=== PATIENT | female | born 1995 | race Caucasian/White ===

== ENCOUNTER 2017-08-12 21:48 | Emergency (ER) | payer OTHER ==
[2017-08-12 22:03] VITALS: BP 130/75
--- NOTE | 2017-08-12 22:15 | ED Physician Documentation ---
History of Present Illness - Stated complaint Stated Complaint: BODY ACHE - Chief complaint Chief Complaint: General - History obtained from History obtained from: Patient - History of Present Illness Timing: Other (Sick for about 4 days with chills alternating with sweats, skin hypersensitivity and runny nose and body aches. No sick contacts. 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 : None HEENT: None Psych: None Musculoskeletal: None Derm: None - Past Surgical History Past Surgical History: Yes Ortho: Other HEENT: Tonsil/Adenoidectomy - Present Medications Home Medications: Ambulatory Orders Medication Instructions Recorded Confirmed Levonorgestrel [Daphney] 07/16/15 07/16/15 - Allergies Allergies/Adverse Reactions: Allergies Allergy/AdvReac Type Severity Reaction Status Date / Time acetaminophen [From Vicodin] Allergy Mild Emesis Verified 08/12/17 22:03 hydrocodone bitartrate * Allergy Mild Emesis Verified 08/12/17 22:03 [From Vicodin] - Social History Does the pt smoke?: No Smoking Status: Current every day smoker Does the pt drink ETOH?: No Does the pt have substance abuse?: No - Immunizations Immunizations are current?: Yes - POLST Patient has POLST: No PD ED PE NORMAL - Vitals Vital signs reviewed: Yes - General General: Alert and oriented X 3, No acute distress - HEENT HEENT: EOMI, Ears normal, Moist mucous membranes, Pharynx benign - Neck Neck: Supple, no meningeal sign, No bony TTP, No adenopathy - Cardiac Cardiac: RRR, No murmur - Respiratory Respiratory: No respiratory distress, Clear bilaterally - Abdomen Abdomen: Soft, Non tender - Derm Derm: No rash - Neuro Neuro: Alert and oriented X 3, Normal speech Results - Vitals Vitals: Vital Signs - 24 hr 08/12/17 21:58 Temperature 37.0 C Heart Rate 100 Respiratory 20 Rate Blood Pressure 130/75 O2 Saturation 99 Oxygen O2 Source Room air PD MEDICAL DECISION MAKING - ED course ED course: In the midst of this influenza outbreak, her symptoms are very consistent with influenza, there is little utility to testing or treating as she had been sick for 3 days; conservative care was advised. Departure - Departure Disposition: 01 Home, Self Care Clinical Impression: Influenza Condition: Good Record reviewed to determine appropriate education?: Yes Instructions: ED Flu Comments: Ibuprofen as needed for aches or pains. He should be better in the next day or 2. Return if worse or if not better in that timeframe. Forms: Activity restrictions
== END 2017-08-12 22:18 | disposition home or self-care (01) ==
LOC: ED 21:48
DX: J11.1 Influenza due to unidentified influenza virus with other respiratory manifestations (principal); F17.200 Nicotine dependence, unspecified, uncomplicated
CPT/HCPCS: 99282

== ENCOUNTER 2018-03-17 19:05 | Emergency (ER) | payer SELFPAY ==
[2018-03-17 19:46] LABS: BASOPHILS # (AUTO) 0.1 10^3/uL (0.0-0.1); BASOPHILS % (AUTO) 0.5 %; EOSINOPHILS # (AUTO) 0.2 10^3/uL (0.0-0.7); EOSINOPHILS % (AUTO) 1.7 %; HGB - HEMOGLOBIN 13.3 g/dL (12.0-16.0); LYMPHOCYTES # (AUTO) 3.8 10^3/uL (1.5-3.5); LYMPHOCYTES % (AUTO) 30.8 %; MEAN CORPUSCULAR HEMOGLOBIN 30.8 pg (27.0-31.0); MEAN CORPUSCULAR HGB CONC 34.2 g/dL (32.0-36.0); MEAN CORPUSCULAR VOLUME 89.9 fL (81.0-99.0); MEAN PLATELET VOLUME 7.5 fL (7.9-10.8); MONOCYTES # (AUTO) 0.8 10^3/uL (0.0-1.0); MONOCYTES % (AUTO) 6.8 %; NEUTROPHILS # (AUTO) 7.4 10^3/uL (1.5-6.6); NEUTROPHILS % (AUTO) 60.2 %; PLT - PLATELET COUNT 277 10^3/uL (130-450); RED BLOOD COUNT 4.32 10^6/uL (4.20-5.40); RED CELL DISTRIBUTION WIDTH 12.3 % (12.0-15.0); WHITE BLOOD COUNT 12.4 x10^3/uL (4.8-10.8)
[2018-03-17 19:56] LABS: BILIRUBIN,URINE NEGATIVE (NEGATIVE); GLUCOSE, URINE (UA) NEGATIVE (NEGATIVE); KETONES,URINE (UA) 15 mg/dL (NEGATIVE); LEUKOCYTE ESTERASE, URINE NEGATIVE (NEGATIVE); NITRITE,URINE NEGATIVE (NEGATIVE); OCCULT BLOOD,URINE NEGATIVE (NEGATIVE); PROTEIN,URINE NEGATIVE (NEGATIVE); UROBILINOGEN,URINE 0.2 (NORMAL) E.U./dL (NORMAL)
[2018-03-17 19:58] LABS: CLARITY,URINE CLEAR (CLEAR)
[2018-03-17 19:59] LABS: HCG UR QUAL POSITIVE
[2018-03-17 20:01] LABS: ALBUMIN 3.9 g/dL (3.2-5.5); ALBUMIN/GLOBULIN RATIO 1.3 (1.0-2.2); BILIRUBIN,TOTAL 0.6 mg/dL (0.2-1.0); CREATININE 0.8 mg/dL (0.4-1.0); TOTAL PROTEIN 6.8 g/dL (6.7-8.2)
[2018-03-17] MEDS ORDERED: SODIUM CHLORIDE 0.9% 1,000 ML IV ONE (20:02)
--- NOTE | 2018-03-17 20:32 | ED Physician Documentation ---
PD HPI ABD PAIN - Stated complaint Stated Complaint: ABD PX - Chief complaint Chief Complaint: Abd Pain - History obtained from History obtained from: Patient - History of Present Illness Timing - onset: Yesterday Timing - details: Gradual onset, Still present Quality: Cramping, Aching Location: Epigastric Associated symptoms: Nausea, Diarrhea. No: Fever Similar symptoms before: Has not had sx before Recently seen: Not recently seen - Additional information Additional information: Patient is a 22 year old female presenting to the emergency department for abdominal pain. patient states that the symptoms started yesterday with generalized epigastric pain, pelvic pain and diarrhea. Patient denies any vomiting or sick contacts. patient reports her lmp was about a month ago. 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 : None HEENT: None Psych: None Musculoskeletal: None Derm: None - Past Surgical History Past Surgical History: Yes Ortho: Other HEENT: Tonsil/Adenoidectomy - Present Medications Home Medications: Ambulatory Orders Medication Instructions Recorded Confirmed Levonorgestrel [Daphney] 07/16/15 07/16/15 - Allergies Allergies/Adverse Reactions: Allergies Allergy/AdvReac Type Severity Reaction Status Date / Time acetaminophen [From Vicodin] Allergy Mild Emesis Verified 03/17/18 19:35 hydrocodone bitartrate * Allergy Mild Emesis Verified 03/17/18 19:35 [From Vicodin] - Social History Does the pt smoke?: No Smoking Status: Never smoker Does the pt drink ETOH?: No Does the pt have substance abuse?: No - Immunizations Immunizations are current?: Yes - POLST Patient has POLST: No PD ED PE NORMAL - Vitals Vital signs reviewed: Yes - General General: Alert and oriented X 3, No acute distress - HEENT HEENT: Atraumatic - Cardiac Cardiac: RRR - Respiratory Respiratory: No respiratory distress - Abdomen Abdomen: Soft - Female Female : Deferred - Derm Derm: Normal color, Warm and dry - Extremities Extremities: No deformity - Neuro Neuro: Alert and oriented X 3, No motor deficit, Normal speech Eye Opening: Spontaneous Motor: Obeys Commands Verbal: Oriented GCS Score: 15 Results - Vitals Vitals: Vital Signs - 24 hr 03/17/18 03/17/18 03/17/18 19:16 19:34 21:58 Temperature 36.7 C Heart Rate 90 90 64 Respiratory 16 16 16 Rate Blood Pressure 128/70 127/71 134/86 H O2 Saturation 100 100 100 03/17/18 22:29 Temperature 36.4 C L Heart Rate 66 Respiratory 16 Rate Blood Pressure 134/86 H O2 Saturation 100 Oxygen O2 Source Room air - Labs Labs: Laboratory Tests 03/17/18 03/17/18 03/17/18 19:37 19:37 19:37 WBC 12.4 H RBC 4.32 Hgb 13.3 Hct 38.8 MCV 89.9 MCH 30.8 MCHC 34.2 RDW 12.3 Plt Count 277 MPV 7.5 L Neut # (Auto) 7.4 H Lymph # (Auto) 3.8 H [place] # (Auto) 0.8 Eos # (Auto) 0.2 Baso # (Auto) 0.1 Absolute Nucleated RBC 0.00 Nucleated RBC % 0.0 Sodium 136 Potassium 3.3 L Chloride 105 Carbon Dioxide 24 Anion Gap 7.0 BUN 9 Creatinine 0.8 Estimated GFR (MDRD) 91 Glucose 88 Calcium 9.0 Total Bilirubin 0.6 AST 21 ALT 20 Alkaline Phosphatase 56 Total Protein 6.8 Albumin 3.9 Globulin 2.9 Albumin/Globulin Ratio 1.3 Lipase 42 HCG, Quant 86431.00 Urine Color Urine Clarity Urine pH Ur Specific [place] Urine Protein Urine Glucose (UA) Urine Ketones Urine Occult Blood Urine Nitrite Urine Bilirubin Urine Urobilinogen Ur Leukocyte Esterase Ur Microscopic Review Urine Culture Comments Urine HCG, Qual 03/17/18 19:40 WBC RBC Hgb Hct MCV MCH MCHC RDW Plt Count MPV Neut # (Auto) Lymph # (Auto) [place] # (Auto) Eos # (Auto) Baso # (Auto) Absolute Nucleated RBC Nucleated RBC % Sodium Potassium Chloride Carbon Dioxide Anion Gap BUN Creatinine Estimated GFR (MDRD) Glucose Calcium Total Bilirubin AST ALT Alkaline Phosphatase Total Protein Albumin Globulin Albumin/Globulin Ratio Lipase HCG, Quant Urine Color YELLOW Urine Clarity CLEAR Urine pH 6.0 Ur Specific [place] 1.020 Urine Protein NEGATIVE Urine Glucose (UA) NEGATIVE Urine Ketones 15 H Urine Occult Blood NEGATIVE Urine Nitrite NEGATIVE Urine Bilirubin NEGATIVE Urine Urobilinogen 0.2 (NORMAL) Ur Leukocyte Esterase NEGATIVE Ur Microscopic Review NOT INDICATED Urine Culture Comments NOT INDICATED Urine HCG, Qual POSITIVE - Rads (name of study) pelvic ultrasound Radiology: Final report received (IUP approximately 5 weeks 3 days) PD MEDICAL DECISION MAKING - ED course Complexity details: reviewed old records, reviewed results, re-evaluated patient , considered differential, d/w patient, d/w family ED course: Patient was seen and examined at bedside. patient was well appearing and in no distress. urine was collected and patient was found to be and mild ketones. Patient did not know she was . labs were drawn, and imaging was ordered. patient was treated with a fluid bolus. Patient went for imaging. when patient returned the results were reviewed. Patient had an early IUP. Patient and family were made aware of the findings. Patient required no further work up and was stable for discharge with outpatient follow up. - Sepsis Event Vital Signs: Vital Signs - 24 hr 03/17/18 03/17/18 03/17/18 19:16 19:34 21:58 Temperature 36.7 C Heart Rate 90 90 64 Respiratory 16 16 16 Rate Blood Pressure 128/70 127/71 134/86 H O2 Saturation 100 100 100 03/17/18 22:29 Temperature 36.4 C L Heart Rate 66 Respiratory 16 Rate Blood Pressure 134/86 H O2 Saturation 100 Oxygen O2 Source Room air Departure - Departure Disposition: 01 Home, Self Care Clinical Impression: Condition: Good Instructions: ED Preg Established Normal Sxs Follow-Up: primary,care provider [Other] - Within 3 Days Comments: Your symptoms today are being caused by a . It is early in the , approximately 5 weeks. You should follow up with your doctor/ob clinic for further evaluation and care. You should stay well hydrated and you can take tylenol as needed for pain. Discharge Date/Time: 03/17/18 22:46
[2018-03-17 22:07] VITALS: BP 134/86
--- NOTE | 2018-03-17 22:22 | Ultrasound Report ---
Reason: abd pain, preg Procedure Date: 03/17/2018 Accession Number: [id number] / [id number] Procedure: US - OB First Trimester CPT Code: FULL RESULT: EXAM: FIRST TRIMESTER OBSTETRIC ULTRASOUND (less than 11 weeks). EXAM DATE: 03/17/2018. CLINICAL HISTORY: Diffuse pelvic pain. LMP: 02/07/2018. COMPARISONS: None. TECHNIQUE: Transabdominal and transvaginal ultrasound examination with static image documentation. CLINICAL DATES: EGA 5 weeks 3 days with TANIA 11/14/2018 based on LMP. ASSESSMENT: Gestational Sac: Single intra-gestational sac containing a yolk sac but no embryo. Mean sac diameter measures 10.3 mm corresponding to an estimated gestational age of 5 weeks 0 days. Embryo: none. Cardiac activity: none. Yolk sac: 4.3 mm. Amniotic fluid: Not applicable. Early placenta: Not applicable. Other: None. MATERNAL STRUCTURES: Uterus: Anteverted. Unremarkable. Cervix: Closed. Right Ovary/Adnexa: Unremarkable. The ovary measures 3 x 2 x 1.9 cm, volume 5.9 cc. 2.7 cm complex right ovarian cyst with debris and mild peripheral flow. No mural nodules or thickened septations. Left Ovary/Adnexa: Unremarkable. The ovary measures 2.7 x 2 x 1.9 cm, volume 5.3 cc. Free Fluid: None. Other: None. IMPRESSION: 1. Single intra-gestational sac containing a yolk sac but no embryo. Estimated gestational age based on mean sac diameter is 5 weeks 0 days which is concordant with dates based upon LMP. Recommend continued monitoring with follow-up imaging as necessary as dictated by clinical presentation and laboratory studies. 2. Probable involuting right ovarian 2.7 cm cyst versus corpus luteum. Otherwise, both ovaries and adnexa are normal. 3. No abnormality explaining the patient's symptoms. RADIA
== END 2018-03-17 22:46 | disposition home or self-care (01) ==
LOC: ED 19:05
DX: O26.891 Other specified pregnancy related conditions, first trimester (principal); R10.13 Epigastric pain; R11.0 Nausea; R19.7 Diarrhea, unspecified; Z3A.01 Less than 8 weeks gestation of pregnancy
CPT/HCPCS: 36415; 76801; 76817; 80053; 81001; 81003; 81025; 83690; 84702; 85025; 87086; 96360; 99283

== ENCOUNTER 2018-04-21 16:37 | Outpatient (CLI) | payer SELFPAY ==
[2018-04-21 17:34] LABS: BILIRUBIN,URINE NEGATIVE (NEGATIVE); GLUCOSE, URINE (UA) NEGATIVE (NEGATIVE); KETONES,URINE (UA) NEGATIVE (NEGATIVE); LEUKOCYTE ESTERASE, URINE NEGATIVE (NEGATIVE); NITRITE,URINE NEGATIVE (NEGATIVE); OCCULT BLOOD,URINE NEGATIVE (NEGATIVE); PROTEIN,URINE NEGATIVE (NEGATIVE); UROBILINOGEN,URINE 0.2 (NORMAL) E.U./dL (NORMAL)
[2018-04-21 17:43] LABS: BACTERIA,URINE None Seen /HPF (None Seen); CLARITY,URINE CLEAR (CLEAR); RBC,URINE 0-5 /HPF (0-5); SQUAMOUS EPITHELIAL CELL,UR RARE Squamous (<= Few)
[2018-04-21 18:16] LABS: BASOPHILS # (AUTO) 0.1 10^3/uL (0.0-0.1); BASOPHILS % (AUTO) 0.7 %; EOSINOPHILS # (AUTO) 0.3 10^3/uL (0.0-0.7); EOSINOPHILS % (AUTO) 1.8 %; HGB - HEMOGLOBIN 12.8 g/dL (12.0-16.0); LYMPHOCYTES # (AUTO) 4.8 10^3/uL (1.5-3.5); LYMPHOCYTES % (AUTO) 29.9 %; MEAN CORPUSCULAR HEMOGLOBIN 31.6 pg (27.0-31.0); MEAN CORPUSCULAR HGB CONC 34.9 g/dL (32.0-36.0); MEAN CORPUSCULAR VOLUME 90.5 fL (81.0-99.0); MEAN PLATELET VOLUME 7.6 fL (7.9-10.8); MONOCYTES % (AUTO) 6.3 %; NEUTROPHILS # (AUTO) 9.8 10^3/uL (1.5-6.6); NEUTROPHILS % (AUTO) 61.3 %; PLT - PLATELET COUNT 280 10^3/uL (130-450); RED BLOOD COUNT 4.05 10^6/uL (4.20-5.40); RED CELL DISTRIBUTION WIDTH 12.6 % (12.0-15.0)
[2018-04-21 18:32] LABS: HB2 TOTAL 13.1 g/dL; HEMOGLOBIN A1C 0.43 g/dL; HEMOGLOBIN A1C % 5.2 % (4.6-6.2)
[2018-04-22 13:27] LABS: HEPATITIS B SURFACE ANTIGEN NON-REACTIVE (NON-REACTIVE)
[2018-04-22 13:28] LABS: HEPATITIS C ANTIBODY NON-REACTIVE (NON-REACTIVE)
[2018-04-22 14:22] LABS: HIV AG/AB 4TH GEN NON-REACTIVE (NON-REACTIVE)
== END 2018-04-21 16:38 | disposition home or self-care (01) ==
LOC: LAB 16:37
PROVIDERS: ATTEND Registered Nurse
DX: O99.211 Obesity complicating pregnancy, first trimester (principal); Z36.9 Encounter for antenatal screening, unspecified
CPT/HCPCS: 36415; 81001; 81599; 82950; 83036; 85025; 86762; 86803; 86850; 86900; 86901; 87340; 87389

== ENCOUNTER → 2018-04-22 | Outpatient (CLI) | payer SELFPAY ==
[2018-04-22 14:52] LABS: MUDS CUTOFF CONCENTRATIONS CUTOFF CONC BELOW:
[2018-04-22 15:50] LABS: AMPHETAMINE SCREEN,URINE NEGATIVE (NEGATIVE); BENZODIAZEPINES SCREEN, URINE NEGATIVE (NEGATIVE); COCAINE SCREEN URINE NEGATIVE (NEGATIVE); METHADONE SCREEN, URINE NEGATIVE (NEGATIVE); METHAMPHETAMINES SCREEN, URINE NEGATIVE (NEGATIVE); OPIATE SCREEN, URINE NEGATIVE (NEGATIVE); OXYCODONE SCREEN, URINE NEGATIVE (NEGATIVE); PROPOXYPHENE SCREEN, URINE NEGATIVE (NEGATIVE); TRICYCLIC ANTIDEPRESSANT,URINE NEGATIVE (NEGATIVE)
== END ==
LOC: LAB.R 08:00
PROVIDERS: ATTEND Registered Nurse
DX: Z36.9 Encounter for antenatal screening, unspecified (principal)
CPT/HCPCS: 80306

== ENCOUNTER 2018-06-27 12:05 | Outpatient (CLI) | payer MEDICAID ==
--- NOTE | 2018-06-30 08:15 | Ultrasound Report ---
Reason: ENCTR FOR SUPRVSN OF NORMAL , 2ND TRIMEST Procedure Date: 06/27/2018 Accession Number: [id number] / [id number] Procedure: US - OB Detailed Eval CPT Code: FULL RESULT: EXAM: COMPLETE OBSTETRICAL ULTRASOUND EXAM DATE: 06/27/2018 02:34 PM. CLINICAL HISTORY: anatomic survey. COMPARISON: 03/17/2018. TECHNIQUE: Real-time sonographic evaluation of the fetus performed by the picking tech. Multiple order entry representative static images were saved for review. DATING: Established EGA 20 weeks 0 days with TANIA 11/14/2018 based on LMP. EGA 19 weeks 6 days with TANIA 11/15/2018 based on the current ultrasound. GENERAL EVALUATION [place] . Cardiac activity: 152 bpm. movement: Visualized. Presentation: Breech. Placenta: Fundal position. No evidence for previa. Umbilical cord: 3 vessel cord. Central placental cord origin. Amniotic fluid: Normal, RASHMI 11.2 cm. MVP 3.3 cm. BIOMETRY Bi-Parietal Diameter (BPD): 4.4 cm, 19 weeks 3 days Head Circumference (HC): 17.5 cm, 20 weeks 0 days Abdominal Circumference (AC): 14.9 cm, 20 weeks 1 day Femur Length (FL): 3.1 cm, 19 weeks 5 days Estimated Weight: 323 g, 43rd percentile. ANATOMY The intracranial structures, profile, lips, spine, stomach, abdominal wall and cord insertion, diaphragm, kidneys, bladder, and extremities were visualized and demonstrate no abnormality. The nasal bone/profile and the cardiac structures are not well visualized. MATERNAL STRUCTURES Uterus: Unremarkable. Cervix: Long and closed. Transabdominal length 4.1 cm. Right ovary/adnexa: Unremarkable. Left ovary/adnexa: Unremarkable. Free fluid: None. IMPRESSION: 1. Masterson live intrauterine with gestational age 20 weeks 0 days based on LMP. 2. Estimated weight is within expected limits for assigned dating. 3. No anatomic abnormalities are detected at this time. However, the nasal bone/profile and cardiac anatomy are not well visualized. Short-term follow-up additional views are recommended to reassess those structures. RADIA
== END 2018-06-27 12:06 | disposition home or self-care (01) ==
LOC: DI 12:05
PROVIDERS: ATTEND Registered Nurse
DX: Z34.82 Encounter for supervision of other normal pregnancy, second trimester (principal)
CPT/HCPCS: 76811

== ENCOUNTER 2018-08-03 20:07 | Outpatient (CLI) | payer MEDICAID ==
[2018-08-03 21:01] LABS: HGB - HEMOGLOBIN 12.1 g/dL (12.0-16.0); MEAN CORPUSCULAR HEMOGLOBIN 30.9 pg (27.0-31.0); MEAN CORPUSCULAR HGB CONC 33.8 g/dL (32.0-36.0); MEAN CORPUSCULAR VOLUME 91.4 fL (81.0-99.0); MEAN PLATELET VOLUME 7.9 fL (7.9-10.8); RED BLOOD COUNT 3.91 10^6/uL (4.20-5.40); RED CELL DISTRIBUTION WIDTH 12.2 % (12.0-15.0); WHITE BLOOD COUNT 16.6 x10^3/uL (4.8-10.8)
[2018-08-03 21:41] VITALS: BP 109/55
--- NOTE | 2018-08-03 22:36 | Ultrasound Report ---
Reason: abdominal trauma Procedure Date: 08/03/2018 Accession Number: [id number] / [id number] Procedure: US - OB Limited CPT Code: FULL RESULT: EXAM: LIMITED OBSTETRICAL ULTRASOUND EXAM DATE: 08/03/2018 09:45 PM. CLINICAL HISTORY: Abdominal trauma. COMPARISON: None. TECHNIQUE: Real-time sonographic evaluation of the fetus performed by the licensing and registration director. Multiple signs sales representative static images were saved for review. DATING: Established EGA 25 weeks 1 day with TANIA 11/15/2018. GENERAL EVALUATION [place] . Cardiac activity: 174 bpm. movement: Visualized. Presentation: Breech. Placenta: Posterior fundal position. No evidence of previa or abruption Amniotic fluid: Subjectively normal. IMPRESSION: 1. [place] live intrauterine with gestational age 25 weeks 1 day based on established TANIA. 2. Placenta is posterior fundal without evidence of abruption. RADIA
[2018-08-04 00:44] LABS: HGB - HEMOGLOBIN 11.6 g/dL (12.0-16.0); MEAN CORPUSCULAR HGB CONC 34.6 g/dL (32.0-36.0); MEAN CORPUSCULAR VOLUME 89.7 fL (81.0-99.0); MEAN PLATELET VOLUME 7.8 fL (7.9-10.8); RED BLOOD COUNT 3.73 10^6/uL (4.20-5.40); RED CELL DISTRIBUTION WIDTH 12.3 % (12.0-15.0); WHITE BLOOD COUNT 17.2 x10^3/uL (4.8-10.8)
== END 2018-08-04 00:55 | disposition home or self-care (01) ==
LOC: WFO 20:07 → FBP 20:09 → WFO 08-04 00:55
PROVIDERS: ATTEND Registered Nurse
DX: O9A.212 Injury, poisoning and certain other consequences of external causes complicating pregnancy, second trimester (principal); Z3A.25 25 weeks gestation of pregnancy; W19.XXXA Unspecified fall, initial encounter; W55.89XA Other contact with other mammals, initial encounter; Y92.009 Unspecified place in unspecified non-institutional (private) residence as the place of occurrence of the external cause
CPT/HCPCS: 36415; 76815; 85027; 99213

== ENCOUNTER 2018-08-07 13:22 | Outpatient (CLI) | payer MEDICAID ==
--- NOTE | 2018-08-07 16:25 | Ultrasound Report ---
Reason: SUPERVISION OF NORMAL Procedure Date: 08/07/2018 Accession Number: [id number] / [id number] Procedure: US - OB F/U or Repeat CPT Code: FULL RESULT: EXAM: FOLLOW-UP OBSTETRICAL ULTRASOUND EXAM DATE: 08/07/2018 03:02 PM. CLINICAL HISTORY: SUPERVISION OF NORMAL . COMPARISON: 06/27/2018 and 08/03/2018. TECHNIQUE: Real-time sonographic evaluation of the fetus performed by the building services technician. Multiple insurance service representative static images were saved for review. DATING: Established EGA 25 weeks 6 days with TANIA 11/14/2018 based on LMP. EGA 25 weeks 5 days with TANIA 11/16/2015 based on ultrasound 06/27/2018. EGA 26 weeks 0 days with TANIA 11/13/2018 based on the current ultrasound. GENERAL EVALUATION [place] . Cardiac activity: 157 bpm. movement: Present Presentation: Cephalic. Placenta: Posterior position. Amniotic fluid: Normal. RASHMI 9 cm. MVP 2.6 cm. BIOMETRY Bi-Parietal Diameter (BPD): 6.3 cm, 25 weeks 4 days Head Circumference (HC): 24 cm, 26 weeks 1 day Abdominal Circumference (AC): 21 cm, 25 weeks 4 days Femur Length (FL): 4.8 cm, 26 weeks 3 days Estimated Weight: 870 g, 54th percentile . ANATOMY 4 chamber heart and outflow tracts and nasal bones/profile well seen today and no anomalies are identified MATERNAL STRUCTURES Cervix 4.1 cm. IMPRESSION: 1. [place] live intrauterine with gestational age 25 weeks 6 days based on LMP. 2. Estimated weight is within expected limits for assigned dating. 3. Normal interval growth compared to 06/27/2018. 4. cardiac anatomy, nasal bones, and profile demonstrate no anomalies. RADIA
== END 2018-08-07 13:23 | disposition home or self-care (01) ==
LOC: DI 13:22
PROVIDERS: ATTEND Registered Nurse
DX: Z34.92 Encounter for supervision of normal pregnancy, unspecified, second trimester (principal)
CPT/HCPCS: 76816

== ENCOUNTER 2018-08-15 12:30 | Outpatient (CLI) | payer MEDICAID ==
[2018-08-15 13:46] LABS: HGB - HEMOGLOBIN 12.9 g/dL (12.0-16.0); MEAN CORPUSCULAR HEMOGLOBIN 31.7 pg (27.0-31.0); MEAN CORPUSCULAR HGB CONC 35.1 g/dL (32.0-36.0); MEAN CORPUSCULAR VOLUME 90.3 fL (81.0-99.0); MEAN PLATELET VOLUME 7.6 fL (7.9-10.8); RED BLOOD COUNT 4.05 10^6/uL (4.20-5.40); RED CELL DISTRIBUTION WIDTH 12.5 % (12.0-15.0)
== END 2018-08-15 12:31 | disposition home or self-care (01) ==
LOC: LAB 12:30
PROVIDERS: ATTEND Registered Nurse
DX: Z34.90 Encounter for supervision of normal pregnancy, unspecified, unspecified trimester (principal)
CPT/HCPCS: 36415; 82950; 85027; 86850

== ENCOUNTER 2018-09-18 08:00 | Outpatient (CLI) | payer MEDICAID | END 2018-09-18 23:59 | disposition home or self-care (01) | LOC: LAB.R 08:00 | PROVIDERS: ATTEND Registered Nurse | DX: N93.9 Abnormal uterine and vaginal bleeding, unspecified (principal) | CPT/HCPCS: 82731; 87491; 87591 ==

== ENCOUNTER 2018-10-16 16:33 | Outpatient (CLI) | payer MEDICAID | END 2018-10-16 23:59 | disposition home or self-care (01) | LOC: LAB.R 16:33 | PROVIDERS: ATTEND Nurse Practitioner Obstetrics & Gynecology | DX: Z36.9 Encounter for antenatal screening, unspecified (principal) | CPT/HCPCS: 87797 ==

== ENCOUNTER 2018-10-22 14:15 | Outpatient (CLI) | payer MEDICAID ==
[2018-10-22 14:15] LABS: BASOPHILS # (AUTO) 0.1 10^3/uL (0.0-0.1); BASOPHILS % (AUTO) 0.5 %; EOSINOPHILS # (AUTO) 0.1 10^3/uL (0.0-0.7); EOSINOPHILS % (AUTO) 0.9 %; HGB - HEMOGLOBIN 13.2 g/dL (12.0-16.0); LYMPHOCYTES # (AUTO) 3.3 10^3/uL (1.5-3.5); LYMPHOCYTES % (AUTO) 28.7 %; MEAN CORPUSCULAR HEMOGLOBIN 30.5 pg (27.0-31.0); MEAN CORPUSCULAR HGB CONC 34.1 g/dL (32.0-36.0); MEAN CORPUSCULAR VOLUME 89.5 fL (81.0-99.0); MEAN PLATELET VOLUME 8.8 fL (7.9-10.8); MONOCYTES % (AUTO) 8.4 %; NEUTROPHILS % (AUTO) 61.5 %; PLT - PLATELET COUNT 248 10^3/uL (130-450); RED BLOOD COUNT 4.33 10^6/uL (4.20-5.40); RED CELL DISTRIBUTION WIDTH 13.2 % (12.0-15.0); WHITE BLOOD COUNT 11.4 x10^3/uL (4.8-10.8)
[2018-10-22 14:26] LABS: CREATININE 0.7 mg/dL (0.4-1.0)
[2018-10-22 14:31] LABS: BILIRUBIN,URINE NEGATIVE (NEGATIVE); GLUCOSE, URINE (UA) NEGATIVE (NEGATIVE); KETONES,URINE (UA) NEGATIVE (NEGATIVE); LEUKOCYTE ESTERASE, URINE TRACE (NEGATIVE); NITRITE,URINE NEGATIVE (NEGATIVE); OCCULT BLOOD,URINE NEGATIVE (NEGATIVE); PH,URINE 6.5 PH (5.0-7.5); PROTEIN,URINE 30 mg/dL (NEGATIVE); UROBILINOGEN,URINE 0.2 (NORMAL) E.U./dL (NORMAL)
[2018-10-22 14:42] LABS: BACTERIA,URINE None Seen /HPF (None Seen); CLARITY,URINE CLEAR (CLEAR); MUCUS,URINE Moderate Strands; RBC,URINE None Seen /HPF (0-5); SQUAMOUS EPITHELIAL CELL,UR MOD Squamous (<= Few)
[2018-10-22 14:48] LABS: CREATININE,URINE 314.7 mg/dL; PROTEIN/CREATININE RATIO,URINE 0.1 (<=0.2)
[2018-10-22] MEDS ORDERED: ACETAMINOPHEN 500 MG TABLET PO PRN (15:37)
[2018-10-22] MEDS ORDERED: BETAMETHASONE 30 MG/5 ML VIAL IM ONE (16:00)
[2018-10-22 16:36] VITALS: BP 130/98
--- NOTE | 2018-10-22 18:05 | PREOP HISTORY & PHYSICAL ---
DATE OF SERVICE: 10/22/2018 Physician: Dillan Jj MD IDENTIFICATION: A 22-year-old, G1, P0 female whose EDC is 11/14/2018. This makes her 36.5 weeks ges tation. CHIEF COMPLAINT: Blood pressure elevations in the clinic. HISTORY OF PRESENT ILLNESS: Patient was seen in the clinic today, at which time her blood pressures noted in the 140s/90s. She was noted to have trace proteinuria last visit. For this reason, she has been sent over for blood pressure evaluations. Her clinic blood pressures have been running 114-120 s over 62-86. She has only had a trace proteinuria noted at her last visit. She is noted to be grou p B strep positive at this time. She has had difficulty with some headaches. PAST MEDICAL HISTORY: Denies any hypertensive, diabetic, cardiac, or pulmonary disease. PAST SURGICAL HISTORY: Positive for a right ankle repair, as well as tonsillectomy and adenoidectomy . MEDICATIONS 1. Tums. 2. vitamins. ALLERGIES: VICODIN. HABITS: She smokes. She denies use of alcohol. She did smoke marijuana prior to the onset of this . FAMILY HISTORY: Positive for diabetes, as well as migraines. LABORATORY DATA: Here, white count 11.4, hemoglobin 13.2, hematocrit 38.4. Platelets were 248. Her creatinine was noted to be 0.7. Her AST is 18. Her protein creatinine ratio was 0.1. Blood pressures here were running in the 120s to 140s. Diastolics were in the 90s. IMPRESSION 1. A 22-year-old primigravida at 36.5 weeks. 2. Gestational hypertension. PLAN 1. Will start collection of a 24-hour total protein excretion. 2. Will have patient return for a blood pressure check tomorrow, as well as finishing her 24-hour co llection. 3. Will administer betamethasone 12 mg IM today, with a repeat dose tomorrow. 4. Should she develop increasing swelling or severe headaches, she should report sooner. 5. She is scheduled for induction on Saturday, at which time she will be 37 weeks. TD: 10/22/2018 16:23
== END 2018-10-22 16:00 | disposition home or self-care (01) ==
LOC: WFO 14:15 → FBP 14:17 → WFO 16:00
PROVIDERS: ATTEND Registered Nurse
DX: O13.3 Gestational [pregnancy-induced] hypertension without significant proteinuria, third trimester (principal); Z3A.36 36 weeks gestation of pregnancy
CPT/HCPCS: 36415; 81001; 81003; 82565; 82570; 83615; 84156; 84450; 85025; 87086

== ENCOUNTER 2018-10-22 20:03 | Inpatient (IN) | payer MEDICAID ==
[2018-10-22] MEDS ORDERED: SODIUM CHLORIDE FLUSH 0.9% 10 ML SYRINGE ONE (22:24)
[2018-10-22] MEDS ORDERED: MAGNESIUM SULFATE 2 GRAM 4 GM/100 ML BAG IV ONE (22:51)
[2018-10-22] MEDS ORDERED: LACTATED RINGERS 1,000 ML IV ONE (22:52)
[2018-10-22] MEDS ORDERED: MAGNESIUM SULFATE IN WATER 20 GM/500 ML IV.SOLN IV ONE (23:00)
[2018-10-22] MEDS: LACTATED RINGERS 1,000 ML IV SCH (23:06)
[2018-10-22] MEDS: MAGNESIUM SULFATE 2 GRAM 2 GM/50 ML BAG IV SCH ×2 (23:10→23:30)
[2018-10-22] MEDS ORDERED: SODIUM CHLORIDE FLUSH 0.9% 10 ML SYRINGE IVP PRN (23:11)
[2018-10-22] MEDS ORDERED: DINOPROSTONE 10 MG SUPP VG ONE (23:26)
[2018-10-22] MEDS: MAGNESIUM SULFATE IN WATER 20 GM/500 ML IV.SOLN IV SCH (23:34)
[2018-10-22] MEDS ORDERED: LABETALOL 20 MG/4 ML SYRINGE IVP PRN (23:37)
[2018-10-23] MEDS: ACETAMINOPHEN 325 MG TABLET PO PRN (00:07)
[2018-10-23 00:45] LABS: BASOPHILS % (AUTO) 0.4 %; HGB - HEMOGLOBIN 12.1 g/dL (12.0-16.0); LYMPHOCYTES % (AUTO) 16.2 %; MEAN CORPUSCULAR HEMOGLOBIN 30.5 pg (27.0-31.0); MEAN CORPUSCULAR HGB CONC 34.1 g/dL (32.0-36.0); MEAN CORPUSCULAR VOLUME 89.4 fL (81.0-99.0); MEAN PLATELET VOLUME 9.1 fL (7.9-10.8); MONOCYTES # (AUTO) 0.2 10^3/uL (0.0-1.0); MONOCYTES % (AUTO) 1.5 %; NEUTROPHILS # (AUTO) 9.9 10^3/uL (1.5-6.6); NEUTROPHILS % (AUTO) 81.9 %; PLT - PLATELET COUNT 240 10^3/uL (130-450); RED BLOOD COUNT 3.96 10^6/uL (4.20-5.40); RED CELL DISTRIBUTION WIDTH 13.2 % (12.0-15.0); WHITE BLOOD COUNT 12.1 x10^3/uL (4.8-10.8)
--- NOTE | 2018-10-23 01:54 | PREOP HISTORY & PHYSICAL ---
DATE OF SERVICE: 10/22/2018 Physician: Dilaln Jj MD IDENTIFICATION: A 22-year-old, G1, P0 female who is 36 weeks 5 days. She was seen earlier today wit h concerns about gestational hypertension. The diagnosis was made and following this, she was sent h ome and told to monitor her headache. She developed headache with visual changes and colors. She st ates that her headaches got progressively worse with time. She returned here. Her blood pressure jade ve been running in the 140s-150s/mid 90s, but she is having difficulty with vision changes. For this reason, she is being admitted to labor and delivery for cervical ripening, magnesium sulfate and ind uction of labor. PHYSICAL EXAMINATION VITAL SIGNS: Blood pressure is 140s/90s. HEENT: Pupils are equal and round. Extraocular muscles are intact. Thyroid is not enlarged. Mouth is clear. HEART: Regular rate and rhythm without murmurs. LUNGS: Lung raman are clear without rales or wheezes. BACK: No spinal or CVA tenderness. ABDOMEN: Uterus is gravid, roughly 36 cm in size, is nontender. heart rate was noted to be in the 140s with good accelerations. LABORATORY DATA: Her labs were previously reviewed on the previous note from today. They were all w ithin normal limits. IMPRESSION 1. A 22-year-old, G1, P0, female. 2. Gestational hypertension with severe features. PLAN: We will admit the patient, start magnesium sulfate, start cervical ripening with Cervidil and plan to progress towards labor. We will repeat her labs in the morning to see how she is progressing . I have ordered labetalol for blood pressures greater than 150/100. TD: 10/22/2018 23:59
[2018-10-23 04:13] LABS: MUDS CUTOFF CONCENTRATIONS CUTOFF CONC BELOW:
[2018-10-23 04:25] LABS: COCAINE SCREEN URINE NEGATIVE (NEGATIVE)
[2018-10-23 04:26] LABS: AMPHETAMINE SCREEN,URINE NEGATIVE (NEGATIVE); BENZODIAZEPINES SCREEN, URINE NEGATIVE (NEGATIVE); METHADONE SCREEN, URINE NEGATIVE (NEGATIVE); METHAMPHETAMINES SCREEN, URINE NEGATIVE (NEGATIVE); OPIATE SCREEN, URINE NEGATIVE (NEGATIVE); OXYCODONE SCREEN, URINE NEGATIVE (NEGATIVE); PROPOXYPHENE SCREEN, URINE NEGATIVE (NEGATIVE); TRICYCLIC ANTIDEPRESSANT,URINE NEGATIVE (NEGATIVE)
[2018-10-23 04:50] LABS: CREATININE,URINE 28.5 mg/dL
[2018-10-23 04:53] LABS: TOTAL PROTEIN,URINE TIMED < 6 mg/dL
[2018-10-23 06:08] LABS: CALCIUM 8.2 mg/dL (8.5-10.3); CREATININE 0.7 mg/dL (0.4-1.0); MAGNESIUM 4.6 mg/dL (1.7-2.8); URIC ACID 5.4 mg/dL (2.6-7.2)
--- NOTE | 2018-10-23 08:32 | PROVIDER PROGRESS NOTE ---
Labor Progress Note - Uterine Monitoring Uterine Monitoring Mode: positive: External toco : 2-5 Contraction Intensity: positive: Mild Uterine Resting Tone: positive: Soft - Monitoring Monitor Mode: positive: External ultrasound Heart Rate Baseline: 130 Heart Rate Variability: positive: Minimal (0-5 bpm) Accelerations: positive: Present, 15x15 Decelerations: positive: None Strip Review: positive: Category I - Vaginal Exam Dilation (in cm): 2 Effacement (%): 50 Station: -1 Cervical Position: Midposition - Labor Progress Note Labor Progress Note/Additional Text: Cervical progress cervidel removed. Miso When adiquit start Pit.
[2018-10-23] MEDS: miSOPROStol 100 MCG TABLET BC SCH ×3 (09:12→19:14)
[2018-10-23] MEDS: MAGNESIUM SULFATE IN WATER 20 GM/500 ML IV.SOLN IV SCH ×2 (10:40→19:59)
[2018-10-23 13:03] LABS: BASOPHILS % (AUTO) 0.2 %; HGB - HEMOGLOBIN 12.5 g/dL (12.0-16.0); LYMPHOCYTES # (AUTO) 3.1 10^3/uL (1.5-3.5); LYMPHOCYTES % (AUTO) 15.5 %; MEAN CORPUSCULAR HEMOGLOBIN 30.6 pg (27.0-31.0); MEAN CORPUSCULAR HGB CONC 34.2 g/dL (32.0-36.0); MEAN CORPUSCULAR VOLUME 89.7 fL (81.0-99.0); MONOCYTES # (AUTO) 1.5 10^3/uL (0.0-1.0); MONOCYTES % (AUTO) 7.4 %; NEUTROPHILS # (AUTO) 15.4 10^3/uL (1.5-6.6); NEUTROPHILS % (AUTO) 76.9 %; PLT - PLATELET COUNT 261 10^3/uL (130-450); RED BLOOD COUNT 4.08 10^6/uL (4.20-5.40)
[2018-10-23 13:16] LABS: ALBUMIN/GLOBULIN RATIO 0.9 (1.0-2.2); BILIRUBIN,TOTAL 0.3 mg/dL (0.2-1.0); CALCIUM 7.9 mg/dL (8.5-10.3); CREATININE 0.7 mg/dL (0.4-1.0); TOTAL PROTEIN 6.2 g/dL (6.7-8.2); URIC ACID 5.3 mg/dL (2.6-7.2)
[2018-10-23 13:54] LABS: CREATININE,URINE 73.4 mg/dL; PROTEIN/CREATININE RATIO,URINE 0.2 (<=0.2)
[2018-10-23] MEDS: LACTATED RINGERS 1,000 ML IV SCH ×2 (15:10→23:34)
[2018-10-23] MEDS ORDERED: BETAMETHASONE 30 MG/5 ML VIAL IM ONE (16:00)
[2018-10-23 16:19] LABS: CREATININE,URINE 45.9 mg/dL
[2018-10-23] MEDS ORDERED: ONDANSETRON 4 MG/2 ML VIAL IVP PRN ×2 (16:43→18:52)
[2018-10-23] MEDS ORDERED: PENICILLIN G POTASSIUM 5,000,000 UNIT in SODIUM CHLORIDE 0.9% MINIBAG 100 ML IV ONE (17:18)
--- NOTE | 2018-10-23 17:27 | PROVIDER PROGRESS NOTE ---
Labor Progress Note - Uterine Monitoring Contraction Frequency (min/apart): Q2-4 Contraction Intensity: positive: Moderate to strong Uterine Resting Tone: positive: Soft - Monitoring Heart Rate Baseline: 135 Heart Rate Variability: positive: Moderate (6-25 bmp) Accelerations: positive: Present, 15x15 Decelerations: positive: None Strip Review: positive: Category I - Vaginal Exam Dilation (in cm): 3 Effacement (%): 80 Station: 0 - Labor Progress Note Labor Progress Note/Additional Text: Pt is sleep deprived. Cervix progressing. BP is stable Labs are normal 24 hour TP 252, P/C 0.2 Gestational HTN Epidural Allow to rest.
--- NOTE | 2018-10-23 17:53 | ANESTHESIA ---
Pre-Anesthesia VS, & Labs - Diagnosis active labor - Procedure labor epidural Vital Signs: Temp Pulse Resp BP Pulse Ox 36.9 C 75 18 147/83 H 97 10/23/18 06:10 10/23/18 06:10 10/23/18 06:10 10/23/18 06:10 10/23/18 06:10 Height 5 ft 7 in Weight (kg) 95.708 kg Body Mass Index 29.1 - NPO Other (1750) - Is Patient ?: Yes - Lab Results Current Lab Results: Laboratory Tests 10/23/18 12:55: Sodium 133 L, Potassium 3.7, Chloride 102, Carbon Dioxide 19 L, Anion Gap 12.0, BUN 9, Creatinine 0.7, Estimated GFR (MDRD) 106, Glucose 147 H, Uric Acid 5.3, Calcium 7.9 L, Total Bilirubin 0.3, AST 23, ALT 10, Alkaline Phosphatase 195 H, Total Protein 6.2 L, Albumin 3.0 L, Globulin 3.2, Albumin/Globulin Ratio 0.9 L 10/23/18 12:55: WBC 20.0 H, RBC 4.08 L, Hgb 12.5, Hct 36.6 L, MCV 89.7, MCH 30.6, MCHC 34.2, RDW 13.0, Plt Count 261, MPV 9.0, Neut # (Auto) 15.4 H, Lymph # (Auto) 3.1, [place] # (Auto) 1.5 H, Eos # (Auto) 0.0, Baso # (Auto) 0.0, Absolute Nucleated RBC 0.00, Nucleated RBC % 0.0 10/23/18 04:07: Urine Opiates Screen NEGATIVE, Ur Oxycodone Screen NEGATIVE, Urine Methadone Screen NEGATIVE, Ur Propoxyphene Screen NEGATIVE, Ur Barbiturates Screen NEGATIVE, Ur Tricyclics Screen NEGATIVE, Ur Phencyclidine Scrn NEGATIVE, Ur Amphetamine Screen NEGATIVE, U Methamphetamines Scrn NEGATIVE, U Benzodiazepines Scrn NEGATIVE, Urine Cocaine Screen NEGATIVE, U Cannabinoids Screen NEGATIVE 10/23/18 02:57: Lactate Dehydrogenase 138 10/23/18 02:57: Sodium 131 L, Potassium 4.0, Chloride 102, Carbon Dioxide 17 L, Anion Gap 12.0, BUN 10, Creatinine 0.7, Estimated GFR (MDRD) 106, Glucose 147 H, Uric Acid 5.4, Calcium 8.2 L, Magnesium 4.6 H, AST 29 10/22/18 23:15: WBC 12.1 H, RBC 3.96 L, Hgb 12.1, Hct 35.4 L, MCV 89.4, MCH 30.5, MCHC 34.1, RDW 13.2, Plt Count 240, MPV 9.1, Neut # (Auto) 9.9 H, Lymph # (Auto) 2.0, [place] # (Auto) 0.2, Eos # (Auto) 0.0, Baso # (Auto) 0.0, Absolute Nucleated RBC 0.00, Nucleated RBC % 0.0 Fish Bones: 10/23/18 12:55 10/23/18 12:55 Home Medications and Allergies Active Medications Acetaminophen (Tylenol) 650 mg PO Q4HR PRN PRN Reason: Pain or Fever > 38C (100.4F) Last Admin: 10/23/18 00:07 Dose: 650 mg Lactated Ringer's (Lr) 1,000 mls @ 75 mls/hr IV .[id number] [facility] Last Admin: 10/23/18 15:10 Dose: 50 mls/hr Magnesium Sulfate (Magnesium Sulf 20 G/500 Ml Bag) 20 gm in 500 mls @ 50 mls/hr IV .Q10H [facility] Last Admin: 10/23/18 10:40 Dose: 2 gm/hr, 50 mls/hr Ampicillin Sodium 2 gm/ Sodium (Chloride) 100 mls @ 100 mls/hr IV ONCE ONE Stop: 10/23/18 18:59 Ampicillin Sodium 1 gm/ Sodium (Chloride) 100 mls @ 200 mls/hr IV Q4H [facility] Labetalol HCl (Trandate Syringe) 10 mg IVP PRN PRN PRN Reason: BP greater than 150/100 Misoprostol (Cytotec) 50 mcg BC Q4H [facility] Last Admin: 10/23/18 13:21 Dose: 50 mcg Ondansetron HCl (Zofran Inj) 4 mg IVP Q4HR PRN PRN Reason: Nausea / Vomiting Last Admin: 10/23/18 16:54 Dose: 4 mg Ranitidine HCl (Zantac) 150 mg PO DAILY [facility] Last Admin: 10/23/18 11:01 Dose: 150 mg Sodium Chloride (Normal Saline Flush 0.9%) 10 ml IVP PRN PRN PRN Reason: NEEDED PER PROVIDER ORDERS Last Admin: 10/23/18 10:40 Dose: 10 ml Sodium Chloride (Normal Saline Flush 0.9%) 10 ml IVP 0100,0900,1700 BETHEL Levonorgestrel [Daphney] 07/16/15 Allergies/Adverse Reactions: Allergies Allergy/AdvReac Type Severity Reaction Status Date / Time hydrocodone bitartrate * Allergy Mild Emesis Verified 03/17/18 19:35 [From Vicodin] Anes History & Medical History - Anesthetic History Anesthesia Complications: reports: No previous complications Family history of Anesthesia Complications: Denies Family history of Malignant Hyperthermia: Denies - Medical History Cardiovascular: reports: None Pulmonary: reports: Asthma Gastrointestinal: reports: GERD Urinary: reports: None Musculoskeletal: reports: None Endocrine/Autoimmune: reports: None Blood Disorders: reports: None Skin: reports: None Smoking Status: Current some day smoker - Surgical History Eyes Ears Nose Throat (EENT): Tonsil/Adenoidectomy Orthopedic: Other Exam General: Alert, Oriented x3, Cooperative, No acute distress Dental: Other (chipped tooth) Mouth Openin Fingerbreadth Neck Mobility: Normal Mallampati classification: III Thyromental Distance: greater than 6 cm Respiratory: Lungs clear, Normal breath sounds, No respiratory distress, No accessory muscle use Cardiovascular: Regular rate, Normal S1, Normal S2, No murmurs Plan Anesthesia Type: Epidural Consent for Procedure(s) Verified and Reviewed: Yes Code Status: Attempt Resuscitation ASA classification: 2-Mild systemic disease Is this case an emergency?: No
[2018-10-23] MEDS ORDERED: AMPICILLIN 2 GM in SODIUM CHLORIDE 0.9% MINIBAG 100 ML IV ONE (18:00)
[2018-10-23] MEDS ORDERED: fent/BUPIV 2 MCG/0.125% 250 ML EP ONE (18:28)
[2018-10-23] MEDS ORDERED: NALOXONE 0.4 MG/ML VIAL IVP PRN (18:52)
[2018-10-23] MEDS ORDERED: fent/BUPIV 2 MCG/0.125% 250 ML EP PRN (18:52)
[2018-10-23] MEDS ORDERED: ePHEDrine 50 MG/ML VIAL IVP PRN (18:52)
[2018-10-23] MEDS ORDERED: NALBUPHINE 10 MG/ML AMP IVP PRN (18:52)
[2018-10-23] MEDS ORDERED: LACTATED RINGERS 500 ML IV ONE (18:52)
[2018-10-23] MEDS ORDERED: METOCLOPRAMIDE 10 MG/2 ML VIAL IVP PRN (18:52)
[2018-10-23] MEDS ORDERED: diphenhydrAMINE INJ 50 MG/ML VIAL IVP PRN (18:52)
[2018-10-23 19:04] LABS: BASOPHILS % (AUTO) 0.1 %; HGB - HEMOGLOBIN 12.7 g/dL (12.0-16.0); LYMPHOCYTES % (AUTO) 15.1 %; MEAN CORPUSCULAR HEMOGLOBIN 29.5 pg (27.0-31.0); MEAN CORPUSCULAR HGB CONC 33.1 g/dL (32.0-36.0); MEAN CORPUSCULAR VOLUME 89.3 fL (81.0-99.0); MEAN PLATELET VOLUME 9.2 fL (7.9-10.8); MONOCYTES % (AUTO) 4.4 %; NEUTROPHILS % (AUTO) 80.4 %; PLT - PLATELET COUNT 266 10^3/uL (130-450); RED CELL DISTRIBUTION WIDTH 13.3 % (12.0-15.0); WHITE BLOOD COUNT 20.8 x10^3/uL (4.8-10.8)
[2018-10-23 19:08] LABS: ABNORMAL LYMPHS % (MANUAL) 0 %
[2018-10-23 19:17] LABS: ALBUMIN 3.1 g/dL (3.2-5.5); ALBUMIN/GLOBULIN RATIO 0.9 (1.0-2.2); BILIRUBIN,TOTAL 0.5 mg/dL (0.2-1.0); CALCIUM 7.4 mg/dL (8.5-10.3); CREATININE 0.8 mg/dL (0.4-1.0); TOTAL PROTEIN 6.4 g/dL (6.7-8.2); URIC ACID 5.6 mg/dL (2.6-7.2)
[2018-10-23 19:22] LABS: BAND NEUTROPHILS % (MANUAL) 1 %; DIFFERENTIAL COMMENT MANUAL DIFFERENTIAL; LYMPHOCYTES # (MANUAL) 2.3 10^3/uL (1.5-3.5); LYMPHOCYTES % (MANUAL) 11 %; MONOCYTES # (MANUAL) 0.6 10^3/uL (0.0-1.0); NEUTROPHILS # (MANUAL) 17.9 10^3/uL (1.5-6.6); NEUTROPHILS % (MANUAL) 85 %; PLATELET ESTIMATE, MANUAL NORMAL (130-450,000) (NORMAL); PLATELET MORPHOLOGY NORMAL APPEARANCE (NORMAL); RBC MORPHOLOGY (MULTIPLE) NORMAL APPEARANCE (NORMAL)
[2018-10-23 20:40] LABS: PROTEIN/CREATININE RATIO,URINE 0.2 (<=0.2)
[2018-10-23] MEDS ORDERED: PENICILLIN G POTASSIUM 2,500,000 UNIT in SODIUM CHLORIDE 0.9% 100ML 100 ML IV SCH (21:00)
[2018-10-23] MEDS: AMPICILLIN 1 GM in SODIUM CHLORIDE 0.9% MINIBAG 100 ML IV SCH (23:23)
[2018-10-24] MEDS: AMPICILLIN 1 GM in SODIUM CHLORIDE 0.9% MINIBAG 100 ML IV SCH ×2 (04:09→08:58)
[2018-10-24] MEDS: ACETAMINOPHEN 325 MG TABLET PO PRN ×3 (04:15→20:15)
[2018-10-24] MEDS: miSOPROStol 100 MCG TABLET BC SCH (05:27)
[2018-10-24] MEDS: MAGNESIUM SULFATE IN WATER 20 GM/500 ML IV.SOLN IV SCH ×2 (06:04→16:08)
[2018-10-24 06:15] LABS: BASOPHILS % (AUTO) 0.3 %; HGB - HEMOGLOBIN 11.8 g/dL (12.0-16.0); LYMPHOCYTES # (AUTO) 2.2 10^3/uL (1.5-3.5); LYMPHOCYTES % (AUTO) 13.4 %; MEAN CORPUSCULAR HEMOGLOBIN 30.8 pg (27.0-31.0); MEAN CORPUSCULAR HGB CONC 34.2 g/dL (32.0-36.0); MEAN CORPUSCULAR VOLUME 89.9 fL (81.0-99.0); MEAN PLATELET VOLUME 8.7 fL (7.9-10.8); MONOCYTES # (AUTO) 0.8 10^3/uL (0.0-1.0); MONOCYTES % (AUTO) 5.1 %; NEUTROPHILS # (AUTO) 13.4 10^3/uL (1.5-6.6); NEUTROPHILS % (AUTO) 81.2 %; PLT - PLATELET COUNT 226 10^3/uL (130-450); RED BLOOD COUNT 3.85 10^6/uL (4.20-5.40); RED CELL DISTRIBUTION WIDTH 13.4 % (12.0-15.0); WHITE BLOOD COUNT 16.5 x10^3/uL (4.8-10.8)
[2018-10-24 06:27] LABS: ALT ALANINE AMINOTRANSFERASE < 10 IU/L (10-60); CREATININE 0.7 mg/dL (0.4-1.0); GFR - MDRD 106 (>89)
[2018-10-24 06:28] LABS: URIC ACID 5.5 mg/dL (2.6-7.2)
--- NOTE | 2018-10-24 07:35 | PROVIDER PROGRESS NOTE ---
Labor Progress Note - Uterine Monitoring : 6-7 Contraction Intensity: positive: Mild to moderate Uterine Resting Tone: positive: Soft - Monitoring Monitor Mode: positive: External ultrasound Heart Rate Baseline: 130 Heart Rate Variability: positive: Minimal (0-5 bpm) Accelerations: positive: Present, 15x15 Decelerations: positive: None Strip Review: positive: Category I - Vaginal Exam Dilation (in cm): 4+ Effacement (%): 80 Station: 0 Cervical Position: Midposition - Labor Progress Note Labor Progress Note/Additional Text: Came by last night to see pt at 2100 Pt was asleep. Allowed to rest over the night. Pt improved. B/P normalized. good pain control with Eidural. Pt is 37.0 weeks. discussed Pit. will start
--- NOTE | 2018-10-24 08:51 | PROVIDER PROGRESS NOTE ---
Subjective - Subjective Subjective: S: feeling pretty good. Had a mild COLLAZO this morning resolved with tylenol. Currently no COLLAZO. No visual changes, no upper abd pain. Feeling some rectal pressure, no UC. No LOF at home. Chart reviewed: 22yo G1 at 37w0d O+, rub NI will need vax PP GBS + TANIA 11/14/18 by LMP c/w 5w c/w 20w US Posterior/fundal placenta, normal anatomy PMH: tobacco use about 1/2 PPD, obese PSH: tonsills and ankle Allergies: hydrocodone SH: smoker. No T/E/D. Supportive family. O: AVSS Alert, smiling, NAD Lungs CTA bilat Abd soft, nt/nd SVE /-2. AROM clear after verbal consent 3+ DTR bilat. 1+ LE edema bilat PIH Labs 06:00 normal. 24h urine in 200s, P:C 0.2 A/P: 22yo G1 at 37w0d by LMP c/w 20w US with IOL for severe preeclampsia. Preeclampsia: criteria not met by proteinuria but pt does have elevated BP, brisk reflex, COLLAZO, and visual changes on admit. Currently no sx, normal labs, and normal BP after epidural. Continue magnesium 2g/h, mag checks q2h, repeat labs PRN change in condition. GBS +: on ampicillin Obese: SCD and JOYCE Smoker: no craving since inpatient. Increased mucous production but lungs are clear. Offered nicotine patch and she declines. Encouraged continued cessation. IOL: going well. s/p ripening now start pitocin. AROM clear at 08:30. Category 1 NST. Vertex by DOV, AGA by anaya. : will need MMR for rub NI. Rh +. Objective - Vital Signs/Intake & Output Intake & Output: Intake & Output 10/21/18 10/22/18 10/23/18 10/24/18 23:59 23:59 23:59 23:59 Intake Total 100 3065.833 500 Output Total 175 3895 1295 Balance -75 -829.167 -795 - Lab Results Fish Bones: 10/24/18 06:08 10/24/18 06:08 Other Labs: Lab Results x24hrs 10/24/18 10/24/18 10/24/18 Range/Units 06:08 06:08 06:08 WBC (4.8-10.8) x10^3/uL RBC (4.20-5.40) 10^6/uL Hgb (12.0-16.0) g/dL Hct (37.0-47.0) % MCV (81.0-99.0) fL MCH (27.0-31.0) pg MCHC (32.0-36.0) g/dL RDW (12.0-15.0) % Plt Count (130-450) 10^3/uL MPV (7.9-10.8) fL Neut # (Auto) (1.5-6.6) 10^3/uL Lymph # (Auto) (1.5-3.5) 10^3/uL [place] # (Auto) (0.0-1.0) 10^3/uL Eos # (Auto) (0.0-0.7) 10^3/uL Baso # (Auto) (0.0-0.1) 10^3/uL Absolute Nucleated RBC x10^3/uL Total Counted Band Neuts % (Manual) (0 - 10) % Abnorm Lymph % (Manual) % Nucleated RBC % /100WBC Neutrophils # (Manual) (1.5-6.6) 10^3/uL Lymphocytes # (Manual) (1.5-3.5) 10^3/uL Monocytes # (Manual) (0.0-1.0) 10^3/uL Eosinophils # (Manual) (0-0.7) 10^3/uL Basophils # (Manual) (0-0.1) 10^3/uL Differential Comment Manual Slide Review WBC Morphology (NORMAL) Platelet Estimate (NORMAL) Platelet Morphology (NORMAL) RBC Morph Micro Appear (NORMAL) Fibrinogen 436 (220-496) mg/dL Sodium (135-145) mmol/L Potassium (3.5-5.0) mmol/L Chloride (101-111) mmol/L Carbon Dioxide (21-32) mmol/L Anion Gap (6-13) BUN (6-20) mg/dL Creatinine 0.7 (0.4-1.0) mg/dL Estimated GFR (MDRD) 106 (>89) Glucose (70-100) mg/dL Uric Acid 5.5 (2.6-7.2) mg/dL Calcium (8.5-10.3) mg/dL Total Bilirubin (0.2-1.0) mg/dL AST 21 (10-42) IU/L ALT < 10 L (10-60) IU/L Alkaline Phosphatase (42-121) IU/L Lactate Dehydrogenase (91-225) IU/L Total Protein (6.7-8.2) g/dL Albumin (3.2-5.5) g/dL Globulin (2.1-4.2) g/dL Albumin/Globulin Ratio (1.0-2.2) Ur 24 Hour Volume mL Urine Creatinine mg/dL Ur Creatinine 24 Hour (600-1800) mg/24h Ur Total Protein 24 Hr (40-150) mg/24hr Ur Total Protein Timed mg/dL Protein/Creatinin Ratio (<=0.2) 10/24/18 10/24/18 10/23/18 Range/Units 06:08 06:08 20:20 WBC 16.5 H (4.8-10.8) x10^3/uL RBC 3.85 L (4.20-5.40) 10^6/uL Hgb 11.8 L (12.0-16.0) g/dL Hct 34.6 L (37.0-47.0) % MCV 89.9 (81.0-99.0) fL MCH 30.8 (27.0-31.0) pg MCHC 34.2 (32.0-36.0) g/dL RDW 13.4 (12.0-15.0) % Plt Count 226 (130-450) 10^3/uL MPV 8.7 (7.9-10.8) fL Neut # (Auto) 13.4 H (1.5-6.6) 10^3/uL Lymph # (Auto) 2.2 (1.5-3.5) 10^3/uL [place] # (Auto) 0.8 (0.0-1.0) 10^3/uL Eos # (Auto) 0.0 (0.0-0.7) 10^3/uL Baso # (Auto) 0.0 (0.0-0.1) 10^3/uL Absolute Nucleated RBC 0.00 x10^3/uL Total Counted Band Neuts % (Manual) (0 - 10) % Abnorm Lymph % (Manual) % Nucleated RBC % 0.0 /100WBC Neutrophils # (Manual) (1.5-6.6) 10^3/uL Lymphocytes # (Manual) (1.5-3.5) 10^3/uL Monocytes # (Manual) (0.0-1.0) 10^3/uL Eosinophils # (Manual) (0-0.7) 10^3/uL Basophils # (Manual) (0-0.1) 10^3/uL Differential Comment Manual Slide Review WBC Morphology (NORMAL) Platelet Estimate (NORMAL) Platelet Morphology (NORMAL) RBC Morph Micro Appear (NORMAL) Fibrinogen (220-496) mg/dL Sodium (135-145) mmol/L Potassium (3.5-5.0) mmol/L Chloride (101-111) mmol/L Carbon Dioxide (21-32) mmol/L Anion Gap (6-13) BUN (6-20) mg/dL Creatinine (0.4-1.0) mg/dL Estimated GFR (MDRD) (>89) Glucose (70-100) mg/dL Uric Acid (2.6-7.2) mg/dL Calcium (8.5-10.3) mg/dL Total Bilirubin (0.2-1.0) mg/dL AST (10-42) IU/L ALT (10-60) IU/L Alkaline Phosphatase (42-121) IU/L Lactate Dehydrogenase 137 (91-225) IU/L Total Protein (6.7-8.2) g/dL Albumin (3.2-5.5) g/dL Globulin (2.1-4.2) g/dL Albumin/Globulin Ratio (1.0-2.2) Ur 24 Hour Volume mL Urine Creatinine 59.0 mg/dL Ur Creatinine 24 Hour (600-1800) mg/24h Ur Total Protein 24 Hr (40-150) mg/24hr Ur Total Protein Timed 14 mg/dL Protein/Creatinin Ratio 0.2 (<=0.2) 10/23/18 10/23/18 10/23/18 Range/Units 18:42 18:42 15:45 WBC 20.8 H (4.8-10.8) x10^3/uL RBC 4.30 (4.20-5.40) 10^6/uL Hgb 12.7 (12.0-16.0) g/dL Hct 38.4 (37.0-47.0) % MCV 89.3 (81.0-99.0) fL MCH 29.5 (27.0-31.0) pg MCHC 33.1 (32.0-36.0) g/dL RDW 13.3 (12.0-15.0) % Plt Count 266 (130-450) 10^3/uL MPV 9.2 (7.9-10.8) fL Neut # (Auto) Not Reportable (1.5-6.6) 10^3/uL Lymph # (Auto) Not Reportable (1.5-3.5) 10^3/uL [place] # (Auto) Not Reportable (0.0-1.0) 10^3/uL Eos # (Auto) Not Reportable (0.0-0.7) 10^3/uL Baso # (Auto) Not Reportable (0.0-0.1) 10^3/uL Absolute Nucleated RBC Not Reportable x10^3/uL Total Counted 100 Band Neuts % (Manual) 1 (0 - 10) % Abnorm Lymph % (Manual) 0 % Nucleated RBC % Not Reportable /100WBC Neutrophils # (Manual) 17.9 H (1.5-6.6) 10^3/uL Lymphocytes # (Manual) 2.3 (1.5-3.5) 10^3/uL Monocytes # (Manual) 0.6 (0.0-1.0) 10^3/uL Eosinophils # (Manual) 0.0 (0-0.7) 10^3/uL Basophils # (Manual) 0.0 (0-0.1) 10^3/uL Differential Comment MANUAL DIFFERENTIAL Manual Slide Review Indicated WBC Morphology NORMAL APPEARANCE (NORMAL) Platelet Estimate NORMAL (130-450,000) (NORMAL) Platelet Morphology NORMAL APPEARANCE (NORMAL) RBC Morph Micro Appear NORMAL APPEARANCE (NORMAL) Fibrinogen (220-496) mg/dL Sodium 133 L (135-145) mmol/L Potassium 3.8 (3.5-5.0) mmol/L Chloride 102 (101-111) mmol/L Carbon Dioxide 18 L (21-32) mmol/L Anion Gap 13.0 (6-13) BUN 9 (6-20) mg/dL Creatinine 0.8 (0.4-1.0) mg/dL Estimated GFR (MDRD) 91 (>89) Glucose 156 H (70-100) mg/dL Uric Acid 5.6 (2.6-7.2) mg/dL Calcium 7.4 L (8.5-10.3) mg/dL Total Bilirubin 0.5 (0.2-1.0) mg/dL AST 27 (10-42) IU/L ALT 10 (10-60) IU/L Alkaline Phosphatase 199 H (42-121) IU/L Lactate Dehydrogenase (91-225) IU/L Total Protein 6.4 L (6.7-8.2) g/dL Albumin 3.1 L (3.2-5.5) g/dL Globulin 3.3 (2.1-4.2) g/dL Albumin/Globulin Ratio 0.9 L (1.0-2.2) Ur 24 Hour Volume 2800 mL Urine Creatinine 45.9 mg/dL Ur Creatinine 24 Hour 1285 (600-1800) mg/24h Ur Total Protein 24 Hr 252 H (40-150) mg/24hr Ur Total Protein Timed 9 mg/dL Protein/Creatinin Ratio (<=0.2) 10/23/18 10/23/18 10/23/18 Range/Units 13:30 12:55 12:55 WBC 20.0 H (4.8-10.8) x10^3/uL RBC 4.08 L (4.20-5.40) 10^6/uL Hgb 12.5 (12.0-16.0) g/dL Hct 36.6 L (37.0-47.0) % MCV 89.7 (81.0-99.0) fL MCH 30.6 (27.0-31.0) pg MCHC 34.2 (32.0-36.0) g/dL RDW 13.0 (12.0-15.0) % Plt Count 261 (130-450) 10^3/uL MPV 9.0 (7.9-10.8) fL Neut # (Auto) 15.4 H (1.5-6.6) 10^3/uL Lymph # (Auto) 3.1 (1.5-3.5) 10^3/uL [place] # (Auto) 1.5 H (0.0-1.0) 10^3/uL Eos # (Auto) 0.0 (0.0-0.7) 10^3/uL Baso # (Auto) 0.0 (0.0-0.1) 10^3/uL Absolute Nucleated RBC 0.00 x10^3/uL Total Counted Band Neuts % (Manual) (0 - 10) % Abnorm Lymph % (Manual) % Nucleated RBC % 0.0 /100WBC Neutrophils # (Manual) (1.5-6.6) 10^3/uL Lymphocytes # (Manual) (1.5-3.5) 10^3/uL Monocytes # (Manual) (0.0-1.0) 10^3/uL Eosinophils # (Manual) (0-0.7) 10^3/uL Basophils # (Manual) (0-0.1) 10^3/uL Differential Comment Manual Slide Review WBC Morphology (NORMAL) Platelet Estimate (NORMAL) Platelet Morphology (NORMAL) RBC Morph Micro Appear (NORMAL) Fibrinogen (220-496) mg/dL Sodium 133 L (135-145) mmol/L Potassium 3.7 (3.5-5.0) mmol/L Chloride 102 (101-111) mmol/L Carbon Dioxide 19 L (21-32) mmol/L Anion Gap 12.0 (6-13) BUN 9 (6-20) mg/dL Creatinine 0.7 (0.4-1.0) mg/dL Estimated GFR (MDRD) 106 (>89) Glucose 147 H (70-100) mg/dL Uric Acid 5.3 (2.6-7.2) mg/dL Calcium 7.9 L (8.5-10.3) mg/dL Total Bilirubin 0.3 (0.2-1.0) mg/dL AST 23 (10-42) IU/L ALT 10 (10-60) IU/L Alkaline Phosphatase 195 H (42-121) IU/L Lactate Dehydrogenase (91-225) IU/L Total Protein 6.2 L (6.7-8.2) g/dL Albumin 3.0 L (3.2-5.5) g/dL Globulin 3.2 (2.1-4.2) g/dL Albumin/Globulin Ratio 0.9 L (1.0-2.2) Ur 24 Hour Volume mL Urine Creatinine 73.4 mg/dL Ur Creatinine 24 Hour (600-1800) mg/24h Ur Total Protein 24 Hr (40-150) mg/24hr Ur Total Protein Timed 13 mg/dL Protein/Creatinin Ratio 0.2 (<=0.2)
[2018-10-24] MEDS: OXYTOCIN/SODIUM CHLORIDE 500 ML IV SCH ×2 (09:35→16:33)
[2018-10-24] MEDS ORDERED: ROPIVACAINE 0.2% PF 20 ML AMPULE ONE (11:15)
[2018-10-24] MEDS ORDERED: LIDOCAINE-PF 2% 10 ML AMP SUBQ ONE (11:16)
--- NOTE | 2018-10-24 13:36 | PROVIDER PROGRESS NOTE ---
Subjective - Subjective Subjective: Having some rectal pressure. Otherwise nothing new. AVSS Sleepy but fully arousible, NAD NST 115-125 baseline, mod LTV, current period of minimal LTV. No decel. + accel [place] now q4 Last SVE 4-5/90/-1 A/P: Preeclampsia stable, no change in plan. Minimal LTV without decels is c/w sleep cycle, RN will call me if persistent. SVE is changing, pit now at 7, UC not adequate, work up on pit. Objective - Vital Signs/Intake & Output Intake & Output: Intake & Output 10/21/18 10/22/18 10/23/18 10/24/18 23:59 23:59 23:59 23:59 Intake Total 100 3065.833 1460.917 Output Total 175 3895 1994 Balance -75 -829.167 -534.083 - Lab Results Fish Bones: 10/24/18 06:08 10/24/18 06:08 Other Labs: Lab Results x24hrs 10/24/18 10/24/18 10/24/18 Range/Units 06:08 06:08 06:08 WBC (4.8-10.8) x10^3/uL RBC (4.20-5.40) 10^6/uL Hgb (12.0-16.0) g/dL Hct (37.0-47.0) % MCV (81.0-99.0) fL MCH (27.0-31.0) pg MCHC (32.0-36.0) g/dL RDW (12.0-15.0) % Plt Count (130-450) 10^3/uL MPV (7.9-10.8) fL Neut # (Auto) Lymph # (Auto) White # (Auto) Eos # (Auto) Baso # (Auto) Absolute Nucleated RBC Total Counted Band Neuts % (Manual) (0 - 10) % Abnorm Lymph % (Manual) % Nucleated RBC % Neutrophils # (Manual) (1.5-6.6) 10^3/uL Lymphocytes # (Manual) (1.5-3.5) 10^3/uL Monocytes # (Manual) (0.0-1.0) 10^3/uL Eosinophils # (Manual) (0-0.7) 10^3/uL Basophils # (Manual) (0-0.1) 10^3/uL Differential Comment Manual Slide Review WBC Morphology (NORMAL) Platelet Estimate (NORMAL) Platelet Morphology (NORMAL) RBC Morph Micro Appear (NORMAL) Fibrinogen 436 (220-496) mg/dL Sodium (135-145) mmol/L Potassium (3.5-5.0) mmol/L Chloride (101-111) mmol/L Carbon Dioxide (21-32) mmol/L Anion Gap (6-13) BUN (6-20) mg/dL Creatinine 0.7 (0.4-1.0) mg/dL Estimated GFR (MDRD) 106 (>89) Glucose (70-100) mg/dL Uric Acid 5.5 (2.6-7.2) mg/dL Calcium (8.5-10.3) mg/dL Total Bilirubin (0.2-1.0) mg/dL AST 21 (10-42) IU/L ALT < 10 L (10-60) IU/L Alkaline Phosphatase (42-121) IU/L Lactate Dehydrogenase (91-225) IU/L Total Protein (6.7-8.2) g/dL Albumin (3.2-5.5) g/dL Globulin (2.1-4.2) g/dL Albumin/Globulin Ratio (1.0-2.2) Ur 24 Hour Volume mL Urine Creatinine mg/dL Ur Creatinine 24 Hour (600-1800) mg/24h Ur Total Protein 24 Hr (40-150) mg/24hr Ur Total Protein Timed mg/dL Protein/Creatinin Ratio (<=0.2) 10/24/18 10/24/18 10/23/18 Range/Units 06:08 06:08 20:20 WBC 16.5 H (4.8-10.8) x10^3/uL RBC 3.85 L (4.20-5.40) 10^6/uL Hgb 11.8 L (12.0-16.0) g/dL Hct 34.6 L (37.0-47.0) % MCV 89.9 (81.0-99.0) fL MCH 30.8 (27.0-31.0) pg MCHC 34.2 (32.0-36.0) g/dL RDW 13.4 (12.0-15.0) % Plt Count 226 (130-450) 10^3/uL MPV 8.7 (7.9-10.8) fL Neut # (Auto) 13.4 H Lymph # (Auto) 2.2 White # (Auto) 0.8 Eos # (Auto) 0.0 Baso # (Auto) 0.0 Absolute Nucleated RBC 0.00 Total Counted Band Neuts % (Manual) (0 - 10) % Abnorm Lymph % (Manual) % Nucleated RBC % 0.0 Neutrophils # (Manual) (1.5-6.6) 10^3/uL Lymphocytes # (Manual) (1.5-3.5) 10^3/uL Monocytes # (Manual) (0.0-1.0) 10^3/uL Eosinophils # (Manual) (0-0.7) 10^3/uL Basophils # (Manual) (0-0.1) 10^3/uL Differential Comment Manual Slide Review WBC Morphology (NORMAL) Platelet Estimate (NORMAL) Platelet Morphology (NORMAL) RBC Morph Micro Appear (NORMAL) Fibrinogen (220-496) mg/dL Sodium (135-145) mmol/L Potassium (3.5-5.0) mmol/L Chloride (101-111) mmol/L Carbon Dioxide (21-32) mmol/L Anion Gap (6-13) BUN (6-20) mg/dL Creatinine (0.4-1.0) mg/dL Estimated GFR (MDRD) (>89) Glucose (70-100) mg/dL Uric Acid (2.6-7.2) mg/dL Calcium (8.5-10.3) mg/dL Total Bilirubin (0.2-1.0) mg/dL AST (10-42) IU/L ALT (10-60) IU/L Alkaline Phosphatase (42-121) IU/L Lactate Dehydrogenase 137 (91-225) IU/L Total Protein (6.7-8.2) g/dL Albumin (3.2-5.5) g/dL Globulin (2.1-4.2) g/dL Albumin/Globulin Ratio (1.0-2.2) Ur 24 Hour Volume mL Urine Creatinine 59.0 mg/dL Ur Creatinine 24 Hour (600-1800) mg/24h Ur Total Protein 24 Hr (40-150) mg/24hr Ur Total Protein Timed 14 mg/dL Protein/Creatinin Ratio 0.2 (<=0.2) 10/23/18 10/23/18 10/23/18 Range/Units 18:42 18:42 15:45 WBC 20.8 H (4.8-10.8) x10^3/uL RBC 4.30 (4.20-5.40) 10^6/uL Hgb 12.7 (12.0-16.0) g/dL Hct 38.4 (37.0-47.0) % MCV 89.3 (81.0-99.0) fL MCH 29.5 (27.0-31.0) pg MCHC 33.1 (32.0-36.0) g/dL RDW 13.3 (12.0-15.0) % Plt Count 266 (130-450) 10^3/uL MPV 9.2 (7.9-10.8) fL Neut # (Auto) Not Reportable Lymph # (Auto) Not Reportable White # (Auto) Not Reportable Eos # (Auto) Not Reportable Baso # (Auto) Not Reportable Absolute Nucleated RBC Not Reportable Total Counted 100 Band Neuts % (Manual) 1 (0 - 10) % Abnorm Lymph % (Manual) 0 % Nucleated RBC % Not Reportable Neutrophils # (Manual) 17.9 H (1.5-6.6) 10^3/uL Lymphocytes # (Manual) 2.3 (1.5-3.5) 10^3/uL Monocytes # (Manual) 0.6 (0.0-1.0) 10^3/uL Eosinophils # (Manual) 0.0 (0-0.7) 10^3/uL Basophils # (Manual) 0.0 (0-0.1) 10^3/uL Differential Comment MANUAL DIFFERENTIAL Manual Slide Review Indicated WBC Morphology NORMAL APPEARANCE (NORMAL) Platelet Estimate NORMAL (130-450,000) (NORMAL) Platelet Morphology NORMAL APPEARANCE (NORMAL) RBC Morph Micro Appear NORMAL APPEARANCE (NORMAL) Fibrinogen (220-496) mg/dL Sodium 133 L (135-145) mmol/L Potassium 3.8 (3.5-5.0) mmol/L Chloride 102 (101-111) mmol/L Carbon Dioxide 18 L (21-32) mmol/L Anion Gap 13.0 (6-13) BUN 9 (6-20) mg/dL Creatinine 0.8 (0.4-1.0) mg/dL Estimated GFR (MDRD) 91 (>89) Glucose 156 H (70-100) mg/dL Uric Acid 5.6 (2.6-7.2) mg/dL Calcium 7.4 L (8.5-10.3) mg/dL Total Bilirubin 0.5 (0.2-1.0) mg/dL AST 27 (10-42) IU/L ALT 10 (10-60) IU/L Alkaline Phosphatase 199 H (42-121) IU/L Lactate Dehydrogenase (91-225) IU/L Total Protein 6.4 L (6.7-8.2) g/dL Albumin 3.1 L (3.2-5.5) g/dL Globulin 3.3 (2.1-4.2) g/dL Albumin/Globulin Ratio 0.9 L (1.0-2.2) Ur 24 Hour Volume 2800 mL Urine Creatinine 45.9 mg/dL Ur Creatinine 24 Hour 1285 (600-1800) mg/24h Ur Total Protein 24 Hr 252 H (40-150) mg/24hr Ur Total Protein Timed 9 mg/dL Protein/Creatinin Ratio (<=0.2) /11/07 Range/Units 13:30 WBC (4.8-10.8) x10^3/uL RBC (4.20-5.40) 10^6/uL Hgb (12.0-16.0) g/dL Hct (37.0-47.0) % MCV (81.0-99.0) fL MCH (27.0-31.0) pg MCHC (32.0-36.0) g/dL RDW (12.0-15.0) % Plt Count (130-450) 10^3/uL MPV (7.9-10.8) fL Neut # (Auto) Lymph # (Auto) White # (Auto) Eos # (Auto) Baso # (Auto) Absolute Nucleated RBC Total Counted Band Neuts % (Manual) (0 - 10) % Abnorm Lymph % (Manual) % Nucleated RBC % Neutrophils # (Manual) (1.5-6.6) 10^3/uL Lymphocytes # (Manual) (1.5-3.5) 10^3/uL Monocytes # (Manual) (0.0-1.0) 10^3/uL Eosinophils # (Manual) (0-0.7) 10^3/uL Basophils # (Manual) (0-0.1) 10^3/uL Differential Comment Manual Slide Review WBC Morphology (NORMAL) Platelet Estimate (NORMAL) Platelet Morphology (NORMAL) RBC Morph Micro Appear (NORMAL) Fibrinogen (220-496) mg/dL Sodium (135-145) mmol/L Potassium (3.5-5.0) mmol/L Chloride (101-111) mmol/L Carbon Dioxide (21-32) mmol/L Anion Gap (6-13) BUN (6-20) mg/dL Creatinine (0.4-1.0) mg/dL Estimated GFR (MDRD) (>89) Glucose (70-100) mg/dL Uric Acid (2.6-7.2) mg/dL Calcium (8.5-10.3) mg/dL Total Bilirubin (0.2-1.0) mg/dL AST (10-42) IU/L ALT (10-60) IU/L Alkaline Phosphatase (42-121) IU/L Lactate Dehydrogenase (91-225) IU/L Total Protein (6.7-8.2) g/dL Albumin (3.2-5.5) g/dL Globulin (2.1-4.2) g/dL Albumin/Globulin Ratio (1.0-2.2) Ur 24 Hour Volume mL Urine Creatinine 73.4 mg/dL Ur Creatinine 24 Hour (600-1800) mg/24h Ur Total Protein 24 Hr (40-150) mg/24hr Ur Total Protein Timed 13 mg/dL Protein/Creatinin Ratio 0.2 (<=0.2)
[2018-10-24] MEDS ORDERED: miSOPROStol 200 MCG TABLET PR ONE (14:45)
[2018-10-24] MEDS ORDERED: CARBOPROST TROMETHAMINE 250 MCG/ML AMP IM ONE ×2 (14:50→15:53)
[2018-10-24] MEDS ORDERED: DIPHENOX/ATROPINE 2.5/0.025 MG TABLET PO ONE ×2 (16:00)
--- NOTE | 2018-10-24 16:48 | DELIVERY NOTE ---
Delivery Note - Labor Labor: positive: Other (Induced with ripening, AROM, and pitocin) - Delivery Method Infant Delivery Method: positive: Spontaneous vaginal delivery - Cervical Ripening Method Cervical Ripening Method: positive: Misoprostil, Oxytocin, Prostaglandin E2 - Presentation Presentation: positive: Vertex - Nuchal Cord Nuchal Cord: positive: None - Anesthetic Anesthetic Type: - Amniotic Fluid Description Amniotic Fluid Description: positive: Clear - Episiotomy Type Episiotomy Type: positive: None - Laceration Laceration: positive: 1st degree (small, 5mm, not requiring repair), Periurethral (small, superficial, left side, does not need repair) - Delivery Outcome Delivery Outcome: positive: Livebirth - : positive: Placed in direct skin contact with mother, Stimulated, Warmed, [place] used sex: positive: Female - Cord Cord: positive: 3 vessels - Placenta Placenta: positive: Intact, Spontaneous - Estimated Blood Loss Estimated Blood Loss (in cc): 400 - Post Delivery Events Post Delivery Events: positive: No post delivery events - Delivery Comments (Free Text/Narrative) Delivery Comments (Free Text/Narrative): Induced for severe preeclampsia, was at 37w0d. Pt with excellent pushing efforts. After expulsion of the , a gush of maroon fluid came out c/w old-ramón blood. Pt's immediate EBL was normal and then she had a persistent trickle that would not resolve with fundal massage alone. Given misoprostol 800mcg ND, hemabate x1, lomotil due to the hemabate, pitocin continue at 125cc/h. Fundus firm, 2cm below U, and VB is now normal. Infant 2300g, 5#3oz, SGA. Undergoing blood sugar and temperature monitoring. Plan for continuation of magnesium for 12-24h depending on patient's condition. DEMI and TED. Maldonado for I/O measurements.
[2018-10-24] MEDS: IBUPROFEN 600 MG TABLET PO SCH (20:15)
[2018-10-25] MEDS: LACTATED RINGERS 1,000 ML IV SCH ×2 (00:18→12:46)
[2018-10-25] MEDS: ACETAMINOPHEN 325 MG TABLET PO PRN ×4 (00:56→20:06)
[2018-10-25] MEDS: MAGNESIUM SULFATE IN WATER 20 GM/500 ML IV.SOLN IV SCH ×2 (02:15→14:07)
[2018-10-25] MEDS: IBUPROFEN 600 MG TABLET PO SCH ×5 (04:13→22:04)
[2018-10-25 07:31] LABS: HGB - HEMOGLOBIN 10.8 g/dL (12.0-16.0); MEAN CORPUSCULAR HEMOGLOBIN 29.7 pg (27.0-31.0); MEAN CORPUSCULAR HGB CONC 33.1 g/dL (32.0-36.0); MEAN CORPUSCULAR VOLUME 89.7 fL (81.0-99.0); MEAN PLATELET VOLUME 8.6 fL (7.9-10.8); RED BLOOD COUNT 3.63 10^6/uL (4.20-5.40); RED CELL DISTRIBUTION WIDTH 13.3 % (12.0-15.0); WHITE BLOOD COUNT 18.4 x10^3/uL (4.8-10.8)
[2018-10-25 07:43] LABS: ALBUMIN 2.5 g/dL (3.2-5.5); ALBUMIN/GLOBULIN RATIO 0.8 (1.0-2.2); ALKALINE PHOSPHATASE 143 IU/L (42-121); ALT ALANINE AMINOTRANSFERASE < 10 IU/L (10-60); AST ASPARTATE AMINOTRANSFERASE 24 IU/L (10-42); BILIRUBIN,TOTAL 0.4 mg/dL (0.2-1.0); BUN - BLOOD UREA NITROGEN 9 mg/dL (6-20); CALCIUM 6.8 mg/dL (8.5-10.3); CARBON DIOXIDE - CO2 22 mmol/L (21-32); CHLORIDE 102 mmol/L (101-111); CREATININE 0.8 mg/dL (0.4-1.0); GFR - MDRD 91 (>89); GLUCOSE 110 mg/dL (70-100); SODIUM 135 mmol/L (135-145); TOTAL PROTEIN 5.6 g/dL (6.7-8.2)
[2018-10-25] MEDS: SODIUM CHLORIDE FLUSH 0.9% 10 ML SYRINGE IVP SCH ×2 (07:55→12:46)
--- NOTE | 2018-10-25 10:24 | PROVIDER PROGRESS NOTE ---
Subjective - Subjective Subjective: S; feeling pretty good, vulva is hurting some but the ice and trish bottle help. No heavy VB. has been challenging with small baby mouth. Eating, ambulating, urinating OK all while on mag. No COLLAZO, no visual changes, no upper abd pain. Mood is OK. O: AVSS except for one BP this morning 145/74. UOP 3125cc in the past 8h. Cuddling baby Alert, smiling, NAD Lungs CTA bilat Abd soft, nt/nd Fundus firm, NT, 2cm below U LE without edema, calves nontender without cord DTR 3+ patellar as per usual. PIH labs without abnormality. Hct 32. A/P: 22yo P1 PPD #1 s/p induced vaginal delivery at term for severe preeclampsia. Had initial headache and visual changes, normal labs, normal P:C ratio, elevated BPs. Had antepartum magnesium and now is undergoing 24h of PP mag. Seems to have turned the corner: no sx, all BP normal except for 1, had very brisk diuresis of 3000cc in 8h. Will remain vigilant but pt is likely to continue to do well. Notably, the patient has declined PP dickerson and has been ambulating with assistance. machado: Hct is 32. Continue SCD until mag is off and pt is freely ambulating VAx: didn't receive Tdap or influenza vax during , pt would lke to get those now. Rub NI: plan to MMR Rh+ Objective - Vital Signs/Intake & Output Vital Signs: Vital Signs x48h Temp Pulse Resp BP Pulse Ox 10/25/18 07:00 98.4 F 79 16 122/75 99 10/25/18 05:55 137/78 H 10/25/18 05:54 69 12 145/74 H 99 10/25/18 04:05 97.7 F 77 14 129/77 97 Intake & Output: Intake & Output 10/22/18 10/23/18 10/24/18 10/25/18 23:59 23:59 23:59 23:59 Intake Total 100 3065.833 3950.000 1600 Output Total 175 3895 3545 3825 Balance -75 -829.167 405.000 -2225 - Lab Results Fish Bones: 10/25/18 07:20 10/25/18 07:20 Other Labs: Lab Results x24hrs 10/25/18 10/25/18 Range/Units 07:20 07:20 WBC 18.4 H (4.8-10.8) x10^3/uL RBC 3.63 L (4.20-5.40) 10^6/uL Hgb 10.8 L (12.0-16.0) g/dL Hct 32.6 L (37.0-47.0) % MCV 89.7 (81.0-99.0) fL MCH 29.7 (27.0-31.0) pg MCHC 33.1 (32.0-36.0) g/dL RDW 13.3 (12.0-15.0) % Plt Count 213 (130-450) 10^3/uL MPV 8.6 (7.9-10.8) fL Sodium 135 (135-145) mmol/L Potassium 4.1 (3.5-5.0) mmol/L Chloride 102 (101-111) mmol/L Carbon Dioxide 22 (21-32) mmol/L Anion Gap 11.0 (6-13) BUN 9 (6-20) mg/dL Creatinine 0.8 (0.4-1.0) mg/dL Estimated GFR (MDRD) 91 (>89) Glucose 110 H (70-100) mg/dL Calcium 6.8 L (8.5-10.3) mg/dL Total Bilirubin 0.4 (0.2-1.0) mg/dL AST 24 (10-42) IU/L ALT < 10 L (10-60) IU/L Alkaline Phosphatase 143 H (42-121) IU/L Total Protein 5.6 L (6.7-8.2) g/dL Albumin 2.5 L (3.2-5.5) g/dL Globulin 3.1 (2.1-4.2) g/dL Albumin/Globulin Ratio 0.8 L (1.0-2.2)
[2018-10-25] MEDS ORDERED: TETANUS/DIPHTHERIA/PERTUSSIS 0.5 ML SYRINGE IM ONE (10:55)
[2018-10-25] MEDS ORDERED: MEASLES,MUMPS & RUBELLA VACC 0.5 ML VIAL SUBQ ONE (10:56)
[2018-10-26] MEDS: ACETAMINOPHEN 325 MG TABLET PO PRN ×3 (00:10→09:00)
[2018-10-26] MEDS: IBUPROFEN 600 MG TABLET PO SCH ×2 (04:24→10:49)
--- NOTE | 2018-10-26 12:57 | Discharge Plan ---
Discharge Plan Disposition: 01 Home, Self Care Condition: Good Diet: Regular Activity Restrictions: nothing in the vagina for 6w Shower Restrictions: No Driving Restrictions: No Additional Instructions or Follow Up instructions: Dr. Miguel's instructions 1. Check your blood pressure 3 times daily. Keep a written log of your blood pressures and bring the log to your appointments. Also take your blood pressure if you are feeling "off" or "weird". 2. If your blood pressure is 150 top number OR 95 bottom number then... --Take labetalol 100mg --Recheck BP in 1 hour --Repeat labetalol as needed. 3. If your blood pressure is 160 top number or 100 bottom number then... --Take 2 pills of 100mg labetalol --Come immediately to triage 4. Preeclampsia can worsen . Return to triage immediately if you have a severe headache, visual changes, or upper abdominal pain 5. Unfortunately you are at a higher risk for developing high blood pressure, heart attack, and stroke. --Get your blood pressure checked yearly to make sure that it is not quietly increasing --Get your cholesterol checked --See a primary care doctor for cardiovascular risk reduction. No Smoking: If you smoke, Please STOP! Call for help. Follow-up with: Fidel Graham, KADIE, COURTNEY [Provider Admit Priv/Credential] - 10/29/18
[2018-10-26] MEDS ORDERED: MEASLES,MUMPS & RUBELLA VACC 0.5 ML VIAL SUBQ ONE (15:00)
[2018-10-26 16:15] VITALS: BP 135/87
--- NOTE | 2018-10-29 08:55 | DISCHARGE SUMMARY ---
Physician: Yessica Miguel MD DATE OF ADMISSION: 10/22/2018 DATE OF DISCHARGE: 10/26/2018 ADMISSION DIAGNOSES 1. Intrauterine at 36 weeks and 5 days. 2. Severe preeclampsia. DISCHARGE DIAGNOSES 1. Status post spontaneous vaginal delivery at term. 2. Severe preeclampsia. OPERATIONS AND PROCEDURES: On 10/24/2018, spontaneous vaginal delivery at 37 weeks and 0 days. ESTIMATED BLOOD LOSS: 400 mL. FINDINGS: Included a 5-pound, 3-ounce SGA infant. Apgars were 7 and 9. There was a gush of maroon fluid that followed the delivery of the baby. HOSPITAL COURSE: The patient was admitted and underwent magnesium sulfate therapy for her severe pre eclampsia. This resulted in resolution of her headache and visual changes. Throughout her hospitali zation, she did not have any further symptoms, severe range blood pressures, or abnormal labs. In fa ct, her protein to creatinine ratio was 0.2. Her magnesium was continued for 24 hours post-delivery. After the magnesium was turned off, she continued in having intermittent mild range blood pressures . INDUCTION OF LABOR: The patient received 2 doses of betamethasone due to her late status. S he was induced with prostaglandins, artificial rupture of membranes, and then Pitocin. Her labor as well as delivery were uncomplicated. The patient's course was uncomplicated. By day 2, she was eating, ambulating, urinating, and defecating without problems. She had a rough time initially, but this h ad resolved by the time of discharge. She had moderate bleeding. Her mood was stable. She was actu ally able to sleep 4-5 hours at night while her baby slept. DISCHARGE EXAMINATION VITAL SIGNS: Blood pressure 158/93 in the right arm. Sixty seconds later, it was 142/90 in the left arm. The initial blood pressure had been taken while the patient was chatting. Temperature 98.6, h eart rate 71, respiratory rate 18, oxygen saturation 98% on room air. GENERAL: The patient is alert and smiling, in no apparent distress. ABDOMEN: Soft, nontender, nondistended. Fundus firm, nontender, and 3 cm below the umbilicus. EXTREMITIES: There was trace lower extremity edema bilaterally. Reflexes were much improved at 2+. LABORATORY DATA: hematocrit was 32.6. DISCHARGE DISPOSITION: Home. CONDITION: Good. MEDICATIONS 1. Continue vitamins. 2. Ibuprofen p.r.n. pain. 3. Colace p.r.n. to soften stool. 4. Labetalol 100 mg. FOLLOWUP: In 3 days in clinic for blood pressure check. INSTRUCTIONS: Please see the patient's discharge plan for detailed instructions that were delivered to the patient. She is to check her blood pressure 3 times daily and take labetalol 100 mg p.r.n. bl ood pressure of 150/95 or higher. If her blood pressure reaches 160/100, then she is to take 2 pills of labetalol and come immediately to triage. She was counseled about increased risk of cardiovascul ar disease and measures to reduce her risk. She was also advised that preeclampsia can worsen postpa rtum and that she should return to triage p.r.n. any symptoms. TD: 10/26/2018 13:25
== END 2018-10-26 16:20 | disposition home or self-care (01) | DRG 807 ==
LOC: WFO 20:03 → FBP 20:04 → WFO 23:11 → FBP 23:12
PROVIDERS: ADMIT Obstetrics & Gynecology; ATTEND Obstetrics & Gynecology
PROC: 3E0P7VZ Introduction of Hormone into Female Reproductive, Via Natural or Artificial Opening (ICD-10-PCS; 2018-10-22)
PROC: 10E0XZZ Delivery of Products of Conception, External Approach (ICD-10-PCS; principal; 2018-10-24)
DX: O14.14 Severe pre-eclampsia complicating childbirth (principal); Z37.0 Single live birth; O70.0 First degree perineal laceration during delivery; O71.82 Other specified trauma to perineum and vulva; O99.334 Smoking (tobacco) complicating childbirth; O99.62 Diseases of the digestive system complicating childbirth; K21.9 Gastro-esophageal reflux disease without esophagitis; Z3A.36 36 weeks gestation of pregnancy
CPT/HCPCS: 36415; 59025; 80048; 80053; 80306; 81001; 82565; 82570; 83615; 83735; 84156; 84450; 84460; 84550; 85025; 85027; 85384; 90686; 99213; A9270; J7120

== ENCOUNTER 2018-12-04 14:10 | Outpatient (CLI) | payer MEDICAID ==
[2018-12-04 22:01] LABS: TRICHOMONAS VAGINALIS DNA NEGATIVE (NEGATIVE)
== END 2018-12-04 23:59 | disposition home or self-care (01) ==
LOC: LAB.R 14:10
PROVIDERS: ATTEND Obstetrics & Gynecology
DX: Z30.430 Encounter for insertion of intrauterine contraceptive device (principal)
CPT/HCPCS: 87491; 87591; 87661

== ENCOUNTER 2019-03-06 18:23 | Emergency (ER) | payer SELFPAY ==
--- NOTE | 2019-03-06 18:53 | ED Physician Documentation ---
PD HPI HEADACHE - Stated complaint Stated Complaint: COLLAZO/VOMITING - Chief complaint Chief Complaint: Neuro - History obtained from History obtained from: Patient - History of Present Illness Timing - onset: Yesterday Timing - onset during: Light activity Timing - duration: Days (2) Timing - details: Gradual onset Worst headache ever?: No: Worst headache ever? (feeling c/w prior migraines. Had not had one for year or so. Previously would treat with Maxalt. Did not have any Rx meds at home.) Location: Left Quality: Throbbing, Aching Associated symptoms: Nausea, Vision changes (mild scotomata). No: Fever, Stiff neck, Vomiting, Weakness, Numbness Worsened by: Light, Noise Contributing factors: No: Hypertension, Recent illness, Trauma Similar symptoms before: Diagnosis (migraines) Recently seen: Not recently seen Review of Systems Constitutional: denies: Fever, Chills Eyes: reports: Photophobia. denies: Loss of vision Nose: denies: Rhinorrhea / runny nose, Congestion Throat: denies: Sore throat Respiratory: denies: Cough Neurologic: reports: Headache. denies: Focal weakness, Numbness, Difficulty speaking, Altered mental status, Head injury PD PAST MEDICAL HISTORY - Past Medical History Cardiovascular: None Respiratory: Asthma Endocrine/Autoimmune: None GI: GERD VICE ADMIRAL: Ovarian cysts : None HEENT: None Psych: None Musculoskeletal: None Derm: None - Past Surgical History Past Surgical History: Yes Ortho: Other HEENT: Tonsil/Adenoidectomy - Present Medications Home Medications: Ambulatory Orders Medication Instructions Recorded Confirmed Levonorgestrel 14 Mcg/24Hr [Daphney] 07/16/15 07/16/15 Naproxen 500 mg PO BID #20 tablet 03/06/19 Ondansetron Odt [Zofran] 4 mg TL Q6H PRN #10 tablet 03/06/19 Rizatriptan Benzoate [Maxalt] 10 mg PO ONCE PRN #6 tablet 03/06/19 - Allergies Allergies/Adverse Reactions: Allergies Allergy/AdvReac Type Severity Reaction Status Date / Time hydrocodone bitartrate * Allergy Mild Emesis Verified 03/17/18 19:35 [From Vicodin] - Social History Does the pt smoke?: No Smoking Status: Never smoker Does the pt drink ETOH?: No Does the pt have substance abuse?: No - Immunizations Immunizations are current?: Yes - POLST Patient has POLST: No PD ED PE NORMAL - Vitals Vital signs reviewed: Yes - General General: Alert and oriented X 3, No acute distress, Well developed/nourished, Other (wearing sunglasses) - HEENT HEENT: Atraumatic, PERRL, EOMI, Ears normal, Moist mucous membranes, Pharynx benign - Neck Neck: Supple, no meningeal sign, No adenopathy - Cardiac Cardiac: RRR, No murmur - Respiratory Respiratory: Clear bilaterally - Derm Derm: Normal color, Warm and dry, No rash - Neuro Neuro: Alert and oriented X 3, vehicle return associate 2-12 intact, No motor deficit, No sensory deficit, Normal speech, Other Eye Opening: Spontaneous Motor: Obeys Commands Verbal: Oriented GCS Score: 15 Results - Vitals Vitals: Oxygen O2 Source Room air PD MEDICAL DECISION MAKING - ED course Complexity details: re-evaluated patient (good improvement with migraine targeted treatment. ), considered differential (c/w migraine and she feels like migraine. No red flags. She used to get improvement with tryptans, but did not have any at home as had been awhile since having migraine. ), d/w patient Departure - Departure Disposition: 01 Home, Self Care Clinical Impression: Migraine headache Qualifiers: Migraine type: without aura Status migrainosus presence: without status migrainosus Intractability: not intractable Qualified Code(s): G43.009 - Migraine without aura, not intractable, without status migrainosus Condition: Stable Record reviewed to determine appropriate education?: Yes Instructions: ED Headache Migraine Prescriptions: Naproxen 500 mg PO BID #20 tablet Ondansetron Odt [Zofran] 4 mg TL Q6H PRN #10 tablet PRN Reason: Nausea / Vomiting Rizatriptan Benzoate [Maxalt] 10 mg PO ONCE PRN #6 tablet PRN Reason: Migraine Comments: Stay well-hydrated. For subsequent migraines use the combination of the Maxalt with ondansetron for nausea and naproxen anti-inflammatory. See if her headaches resolve with that. Follow-up with your primary care regarding further prescription refills and treatments. Forms: Activity restrictions Discharge Date/Time: 03/06/19 20:24
[2019-03-06] MEDS ORDERED: KETOROLAC 30 MG/ML VIAL IM STA (19:05)
[2019-03-06] MEDS ORDERED: ONDANSETRON ODT 4 MG TABLET TL STA (19:05)
[2019-03-06] MEDS ORDERED: SUMAtriptan 6 MG/0.5 ML VIAL SUBQ STA (19:05)
[2019-03-06 20:24] VITALS: BP 124/78
== END 2019-03-06 20:24 | disposition home or self-care (01) ==
LOC: ED 18:23
DX: G43.009 Migraine without aura, not intractable, without status migrainosus (principal)
CPT/HCPCS: 96372; 99283; 99284; Q0162

== ENCOUNTER 2019-04-27 13:12 | Emergency (ER) | payer OTHER ==
--- NOTE | 2019-04-27 14:56 | ED Physician Documentation ---
PD HPI URI - Stated complaint Stated Complaint: COUGH - Chief complaint Chief Complaint: Resp - History obtained from History obtained from: Patient - History of Present Illness Timing - onset: How many days ago (2-3) Timing duration: Days (2-3) Timing details: Gradual onset, Still present Associated symptoms: Chills, Nasal congestion, Sore throat, Swollen nodes, Dyspnea (the past day) Contributing factors: COPD / asthma Similar symptoms before: Diagnosis (gets asthma type symptoms when ill at times.) Recently seen: Not recently seen Review of Systems Constitutional: reports: Fever, Chills, Myalgias Nose: reports: Congestion. 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: Ovarian cysts : None HEENT: None Psych: None Musculoskeletal: None Derm: None - Past Surgical History Past Surgical History: Yes Ortho: Other HEENT: Tonsil/Adenoidectomy - Present Medications Home Medications: Ambulatory Orders Medication Instructions Recorded Confirmed Levonorgestrel 14 Mcg/24Hr [Daphney] 07/16/15 07/16/15 Naproxen 500 mg PO BID #20 tablet 03/06/19 Ondansetron Odt [Zofran] 4 mg TL Q6H PRN #10 tablet 03/06/19 Rizatriptan Benzoate [Maxalt] 10 mg PO ONCE PRN #6 tablet 03/06/19 Albuterol Sulf [Ventolin Hfa 1 - 2 puffs INH Q4HR PRN #1 inhaler 04/27/19 Inhaler] Benzonatate [Tessalon Perle] 100 mg PO TID PRN #25 capsule 04/27/19 dexAMETHasone [Decadron] 4 mg PO DAILY #5 tablet 04/27/19 - Allergies Allergies/Adverse Reactions: Allergies Allergy/AdvReac Type Severity Reaction Status Date / Time hydrocodone bitartrate * Allergy Mild Emesis Verified 04/27/19 13:21 [From Vicodin] - Social History Does the pt smoke?: No Smoking Status: Never smoker Does the pt drink ETOH?: No Does the pt have substance abuse?: No - Immunizations Immunizations are current?: Yes - POLST Patient has POLST: No PD ED PE NORMAL - Vitals Vital signs reviewed: Yes - General General: Alert and oriented X 3, No acute distress, Well developed/nourished - HEENT HEENT: Ears normal, Pharynx benign - Neck Neck: Supple, no meningeal sign, No adenopathy - Cardiac Cardiac: RRR, No murmur - Respiratory Respiratory: No: Clear bilaterally (some scattered wheezing. No retractions. No coarse sounds. ) - Abdomen Abdomen: Soft, Non tender - Derm Derm: Normal color, Warm and dry - Extremities Extremities: No deformity, No tenderness to palpate, No edema, No calf tenderness / cord - Neuro Neuro: Alert and oriented X 3, No motor deficit, Normal speech - Psych Psych: Normal mood, Normal affect Results - Vitals Vitals: Vital Signs - 24 hr 04/27/19 04/27/19 04/27/19 13:22 15:40 16:06 Temperature 36.7 C Heart Rate 76 67 92 Respiratory 15 16 16 Rate Blood Pressure 131/75 H 132/71 H O2 Saturation 98 99 Oxygen O2 Source Room air PD MEDICAL DECISION MAKING - ED course Complexity details: considered differential (clinically seems viral URI with wheezing; does not seem pneumonic. ), d/w patient Departure - Departure Disposition: 01 Home, Self Care Clinical Impression: Upper respiratory infection Qualifiers: URI type: unspecified URI Qualified Code(s): J06.9 - Acute upper respiratory infection, unspecified Condition: Stable Record reviewed to determine appropriate education?: Yes Instructions: ED URI Viral W Wheezing Prescriptions: Albuterol Sulf [Ventolin Hfa Inhaler] 1 - 2 puffs INH Q4HR PRN #1 inhaler PRN Reason: Shortness Of Air/Wheezing Benzonatate [Tessalon Perle] 100 mg PO TID PRN #25 capsule PRN Reason: Cough dexAMETHasone [Decadron] 4 mg PO DAILY #5 tablet Comments: This is most likely a viral illness with some inflammation of the bronchials and upper airway. Use the albuterol inhaler 2 puffs 4 times a day for the next week or so and extra times as needed for wheezing and cough. Decadron steroid for inflammation of the airways to decrease cough and wheezing. Add Tessalon if needed for cough suppression. Stay well-hydrated and Tylenol if needed for fevers or pains. I would anticipate improvement over the next several days to week or so. Forms: Activity restrictions Discharge Date/Time: 04/27/19 16:07
[2019-04-27] MEDS ORDERED: DEXAMETHASONE 10 MG/ML VIAL PO STA (15:06)
[2019-04-27] MEDS ORDERED: BENZONATATE 100 MG CAPSULE PO STA (15:06)
[2019-04-27] MEDS ORDERED: CHERRY SYRUP 10 ML UDC PO ONE (15:06)
[2019-04-27] MEDS ORDERED: ALBUTEROL NEB 2.5 MG/3 ML INH STA (15:06)
[2019-04-27 16:06] VITALS: BP 132/71
== END 2019-04-27 16:07 | disposition home or self-care (01) ==
LOC: ED 13:12
DX: J06.9 Acute upper respiratory infection, unspecified (principal)
CPT/HCPCS: 94640; 94664; 99283; A9270

== ENCOUNTER 2019-09-10 11:18 | Emergency (ER) | payer OTHER ==
[2019-09-10 11:25] VITALS: BP 124/79
[2019-09-10 11:44] LABS: RAPID STREP SCREEN Negative (Negative)
--- NOTE | 2019-09-10 12:46 | ED Physician Documentation ---
History of Present Illness - Stated complaint Stated Complaint: SORE THROAT/EAR PX - Chief complaint Chief Complaint: Heent - History obtained from History obtained from: Patient (Patient comes emergency department complaining ofSore throat, ear pain, and uvular swelling that have started this morning. Patient states she has had congestion and cold-like symptoms for the last couple of days. She has not had any known sick contacts. No fevers or chills. No nausea or vomiting. No abdominal pain. No chest pain or shortness of breath.States she does smoke cigarettes but she is otherwise healthy. No other complaints at this time. Patient states she is not having any trouble breathing currently, but she did feel as though she would swallow her uvula this morning. She states her had to put his finger in her throat and move her uvula out of the way. No history of angioedema. No other complaints at this time. Patient states she has had a remote tonsillectomy.) Review of Systems Ten Systems: 10 systems reviewed and negative Constitutional: reports: Reviewed and negative Eyes: reports: Reviewed and negative Ears: reports: Ear pain, Reviewed and negative Nose: reports: Reviewed and negative Throat: reports: Sore throat, Reviewed and negative Cardiac: reports: Reviewed and negative Respiratory: reports: Reviewed and negative GI: reports: Reviewed and negative : reports: Reviewed and negative Skin: reports: Reviewed and negative Musculoskeletal: reports: Reviewed and negative Neurologic: reports: Reviewed and negative Psychiatric: reports: Reviewed and negative Endocrine: reports: Reviewed and negative Immunocompromised: reports: Reviewed and negative PD PAST MEDICAL HISTORY - Past Medical History Past Medical History: Yes Cardiovascular: None Respiratory: Asthma Endocrine/Autoimmune: None GI: GERD 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 : None HEENT: None Psych: None Musculoskeletal: None Derm: None - Past Surgical History Past Surgical History: Yes Ortho: Other HEENT: Tonsil/Adenoidectomy - Present Medications Home Medications: Ambulatory Orders Medication Instructions Recorded Confirmed Levonorgestrel 20 Mcg/24H [Mirena] 1 each IY 09/10/19 PrednisoLONE [Prelone] 45 mg PO DAILY 5 Days #75 ml 09/10/19 - Allergies Allergies/Adverse Reactions: Allergies Allergy/AdvReac Type Severity Reaction Status Date / Time hydrocodone bitartrate * Allergy Mild Emesis Verified 09/10/19 11:26 [From Vicodin] - Social History Does the pt smoke?: No Smoking Status: Never smoker Does the pt drink ETOH?: No Does the pt have substance abuse?: No - Immunizations Immunizations are current?: Yes - POLST Patient has POLST: No PD ED PE NORMAL - Vitals Vital signs reviewed: Yes - General General: Alert and oriented X 3, No acute distress - HEENT HEENT: PERRL, EOMI, Ears normal, Moist mucous membranes, Other (Patient has mild uvular hydrops. She does not have any exudates. Mild pharyngeal edema.) - Neck Neck: Supple, no meningeal sign - Cardiac Cardiac: RRR, No murmur - Respiratory Respiratory: Clear bilaterally - Abdomen Abdomen: Normal bowel sounds, Soft, Non tender, Non distended - Derm Derm: Warm and dry - Extremities Extremities: No deformity - Neuro Neuro: Alert and oriented X 3 - Psych Psych: Normal mood, Normal affect Results - Vitals Vitals: Vital Signs - 24 hr 09/10/19 11:23 Temperature 36.5 C Heart Rate 101 H Respiratory 18 Rate Blood Pressure 124/79 O2 Saturation 99 Oxygen O2 Source Room air - Labs Labs: Laboratory Tests 09/10/19 11:30 Group A Strep Rapid Negative PD MEDICAL DECISION MAKING - ED course Complexity details: reviewed old records, reviewed results, d/w patient (Discussed with the patient that her strep test is negative and that her symptoms are more indicative of a viral syndrome than a bacterial illness. We discussed that use of Sudafed and prednisone may be helpful. I will prescribe her prednisolone as she states she cannot swallow any pills right now. Patient is also advised to drink ice water to help with her sensation of uvular swelling. Patient is in no distress at this time and I do not feel that she is in danger of airway compromise. We discussed home management and symptoms, as well as the usual indications for return.) Departure - Departure Disposition: 01 Home, Self Care Clinical Impression: Viral upper respiratory illness, Sore throat Condition: Fair Instructions: ED Viral Syndrome Prescriptions: PrednisoLONE [Prelone] 45 mg PO DAILY 5 Days #75 ml Comments: Please use prednisone and Sudafed, as needed for your sore throat and congestion. You may drink ice water to help with the inflammation in your throat. There is no evidence of strep pharyngitis today, and as such, antibiotics will not be helpful. Forms: Activity restrictions
== END 2019-09-10 12:54 | disposition home or self-care (01) ==
LOC: ED 11:18
DX: J06.9 Acute upper respiratory infection, unspecified (principal); F17.200 Nicotine dependence, unspecified, uncomplicated
CPT/HCPCS: 87070; 87430; 99283; 99284

== ENCOUNTER 2019-10-22 20:48 | Emergency (ER) | payer OTHER ==
--- NOTE | 2019-10-22 21:02 | ED Physician Documentation ---
PD HPI LOWER EXT INJURY - Stated complaint Stated Complaint: RT KNEE PX - Chief complaint Chief Complaint: Ext Problem - History obtained from History obtained from: Patient - History of Present Illness PD HPI LOW EXT INJURY LOCATION: Right, Knee (Patient is a 23-year-old female who is here today of nontraumatic right knee pain that slowly developed over the last 3 to 4 days. She is noticed some increased swelling around that knee. Denies any warmth, redness, or skin changes. She has no history of gout or any articular disease. She has no chronic medical conditions. She has not taken any Tylenol or ibuprofen for this. She denies any fevers, other articular involvement. No myalgias. She has no further complaints or concerns.) Review of Systems Constitutional: denies: Fever, Myalgias, Sweats Eyes: reports: Reviewed and negative Ears: reports: Reviewed and negative Nose: reports: Reviewed and negative Respiratory: reports: Reviewed and negative GI: reports: Reviewed and negative : reports: Reviewed and negative Skin: reports: Reviewed and negative. denies: Rash, Abrasion (s), Laceration (s), Bite / sting Musculoskeletal: reports: Extremity pain, Joint pain, Joint swelling, Pain with weight bearing. 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 : None HEENT: None Psych: None Musculoskeletal: None Derm: None - Past Surgical History Past Surgical History: Yes Ortho: Other HEENT: Tonsil/Adenoidectomy - Present Medications Home Medications: Ambulatory Orders Medication Instructions Recorded Confirmed Levonorgestrel 20 Mcg/24H [Mirena] 1 each IY 09/10/19 PrednisoLONE [Prelone] 45 mg PO DAILY 5 Days #75 ml 09/10/19 - Allergies Allergies/Adverse Reactions: Allergies Allergy/AdvReac Type Severity Reaction Status Date / Time hydrocodone bitartrate * Allergy Mild Emesis Verified 09/10/19 11:26 [From Vicodin] - Social History Does the pt smoke?: No Smoking Status: Never smoker Does the pt drink ETOH?: No Does the pt have substance abuse?: No - Immunizations Immunizations are current?: Yes - POLST Patient has POLST: No Results - Vitals Vitals: Vital Signs - 24 hr 04/02/20 20:52 Temperature 37.0 C Heart Rate 62 Respiratory 16 Rate Blood Pressure 133/72 H O2 Saturation 97 Oxygen O2 Source Room air - Labs Labs: Laboratory Tests 10/22/19 10/22/19 21:16 21:16 WBC 13.5 H RBC 4.43 Hgb 13.6 Hct 40.1 MCV 90.5 MCH 30.7 MCHC 33.9 RDW 13.0 Plt Count 313 MPV 9.7 Neut # (Auto) 7.4 H Lymph # (Auto) 4.6 H Mcnairy # (Auto) 0.8 Eos # (Auto) 0.5 Baso # (Auto) 0.1 Absolute Nucleated RBC 0.00 Nucleated RBC % 0.0 Uric Acid 6.3 PD MEDICAL DECISION MAKING - ED course Complexity details: reviewed results (Lactic acid and plain films are unremarkable. She has a mildly elevated leukocytosis at 13,500. This was discussed with the patient.), re-evaluated patient, considered differential, d/w patient (Discussed the differential diagnoses. Patient is currently self ambulating without significant discomfort. She will use Tylenol for comfort. She does not want to use any NSAIDs at this time as she is afraid of how this could potentially affect any oro virus exposure. She agrees to monitor her knee very closely. She will contact orthopedics tomorrow to schedule follow-up appointment. Return here as needed for any worsening pain, redness, warmth, or fevers.) Departure - Departure Disposition: 01 Home, Self Care Clinical Impression: Knee effusion, right Condition: Stable Instructions: ED Effusion Knee Follow-Up: [facility] [Provider Group] Comments: Use Tylenol for comfort. Monitor your knee closely for any redness, increased pain, warmth, or decreased range of motion. Please return to the emergency room at anytime for worsening symptoms. Otherwise contact orthopedics tomorrow to schedule a follow-up appointment.
[2019-10-22 21:11] VITALS: BP 133/72
[2019-10-22 21:23] LABS: BASOPHILS # (AUTO) 0.1 10^3/uL (0.0-0.1); BASOPHILS % (AUTO) 0.6 %; EOSINOPHILS # (AUTO) 0.5 10^3/uL (0.0-0.7); EOSINOPHILS % (AUTO) 3.7 %; HGB - HEMOGLOBIN 13.6 g/dL (12.0-16.0); LYMPHOCYTES # (AUTO) 4.6 10^3/uL (1.5-3.5); LYMPHOCYTES % (AUTO) 34.3 %; MEAN CORPUSCULAR HEMOGLOBIN 30.7 pg (27.0-31.0); MEAN CORPUSCULAR HGB CONC 33.9 g/dL (32.0-36.0); MEAN CORPUSCULAR VOLUME 90.5 fL (81.0-99.0); MEAN PLATELET VOLUME 9.7 fL (7.9-10.8); MONOCYTES # (AUTO) 0.8 10^3/uL (0.0-1.0); MONOCYTES % (AUTO) 5.6 %; NEUTROPHILS # (AUTO) 7.4 10^3/uL (1.5-6.6); NEUTROPHILS % (AUTO) 55.3 %; PLT - PLATELET COUNT 313 10^3/uL (130-450); RED BLOOD COUNT 4.43 10^6/uL (4.20-5.40); WHITE BLOOD COUNT 13.5 x10^3/uL (4.8-10.8)
--- NOTE | 2019-10-22 22:02 | XRAY Report ---
Reason: pain Procedure Date: 10/22/2019 Accession Number: [id number] / [id number] Procedure: XR - Knee 3 View RT CPT Code: Final Report FULL RESULT: EXAM: RIGHT KNEE RADIOGRAPHY EXAM DATE: 10/22/2019 09:45 PM. CLINICAL HISTORY: Pain and swelling for 1 week, no trauma. COMPARISON: None. TECHNIQUE: 3 views. FINDINGS: Bones: No fracture or bone lesion visualized. Joints: There is a joint effusion. No subluxation. Soft Tissues: No focal soft tissue swelling. IMPRESSION: No osseous abnormality. There is a joint effusion. RADIA
== END 2019-10-22 22:41 | disposition home or self-care (01) ==
LOC: ED 20:48
DX: M25.461 Effusion, right knee (principal)
CPT/HCPCS: 36415; 84550; 85025; 99284

== ENCOUNTER 2019-12-24 08:21 | Emergency (ER) | payer OTHER ==
--- NOTE | 2019-12-24 09:01 | ED Physician Documentation ---
History of Present Illness - Stated complaint Stated Complaint: RT KNEE PX - Chief complaint Chief Complaint: Ext Problem - History obtained from History obtained from: Patient - Additonal information Additional information: Patient comes emergency department complaining of right knee pain that has been getting worse since about May. 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 She states she had a knee injury back in her teens and that this has occasionally flared. However, she has not had any recent reinjury or specific traumatic event. The patient states that she has noticed swelling of the knee and that the pain is gotten worse over the last few days. When she tries to climb ladders at work, she especially notices the pain. Patient denies any persistent numbness or tingling in her foot. She states that she has been using an Manuel bandage, which has not been helpful. The patient states she was first seen for this problem 2 months ago in the emergency department and at that time, was referred to [facility]. Patient states that she called [facility] orth[facility], but they stated they needed a referral from her primary care physician, who she saw approximately week and a half ago. She states that they are indeed writing her a referral now. Review of Systems Ten Systems: 10 systems reviewed and negative Constitutional: reports: Reviewed and negative Eyes: reports: Reviewed and negative Ears: reports: Reviewed and negative Nose: reports: Reviewed and negative Throat: reports: Reviewed and negative Cardiac: reports: Reviewed and negative Respiratory: reports: Reviewed and negative GI: reports: Reviewed and negative : reports: Reviewed and negative Skin: reports: Reviewed and negative Musculoskeletal: reports: Joint pain (Right knee) Neurologic: reports: Reviewed and negative Psychiatric: reports: Reviewed and negative Endocrine: reports: Reviewed and negative Immunocompromised: reports: Reviewed and negative PD PAST MEDICAL HISTORY - Past Medical History Cardiovascular: None Respiratory: Asthma Endocrine/Autoimmune: None GI: 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 : None HEENT: None Psych: None Musculoskeletal: None Derm: None - Past Surgical History Past Surgical History: Yes Ortho: Other HEENT: Tonsil/Adenoidectomy - Present Medications Home Medications: Ambulatory Orders Medication Instructions Recorded Confirmed Levonorgestrel 20 Mcg/24H [Mirena] 1 each IY 09/10/19 PrednisoLONE [Prelone] 45 mg PO DAILY 5 Days #75 ml 09/10/19 - Allergies Allergies/Adverse Reactions: Allergies Allergy/AdvReac Type Severity Reaction Status Date / Time hydrocodone bitartrate * Allergy Mild Emesis Verified 12/24/19 08:28 [From Vicodin] - Social History Does the pt smoke?: No Smoking Status: Never smoker Does the pt drink ETOH?: No Does the pt have substance abuse?: No - Immunizations Immunizations are current?: Yes - POLST Patient has POLST: No PD ED PE NORMAL - Vitals Vital signs reviewed: Yes - General General: Alert and oriented X 3, No acute distress - HEENT HEENT: Atraumatic, PERRL, EOMI, Moist mucous membranes - Neck Neck: Supple, no meningeal sign - Cardiac Cardiac: Strong equal pulses - Respiratory Respiratory: No respiratory distress - Derm Derm: Normal color, Warm and dry, No rash - Extremities Extremities: No deformity, No calf tenderness / cord, Other (Patient has a mild to moderately sized effusion of her right knee, without deformity or discoloration. There is diffuse peripatellar tenderness. Patient is full range of motion of the knee, though she does complain that it hurts with flexion. No posterior knee tenderness. No instability with valgus stress or varus stress and no anterior posterior instability.) - Neuro Neuro: Alert and oriented X 3 - Psych Psych: Normal mood, Normal affect Results - Vitals Vitals: Vital Signs - 24 hr 12/24/19 08:29 Temperature 36.9 C Heart Rate 77 Respiratory 15 Rate Blood Pressure 163/74 H O2 Saturation 99 Oxygen O2 Source Room air PD MEDICAL DECISION MAKING - ED course Complexity details: considered differential, d/w patient ED course: I discussed with the patient that at this point in time, she most likely has a an overuse flareup of an old injury, or may be a slight injury of a new but chronic variety. The patient has had symptoms for a number of months now, and has already been seen in the ED and and family medicine. I believe that orthopedic follow-up and probably MRI are what are going to be most helpful to the patient at this time. I have advised her to go to a drugstore such as [employer] or [employer], or a department store such as [employer] or [employer], and get a neoprene knee sleeve. This will likely give her more support in the Manuel bandage . We have discussed ice and elevation, as well as [id number] ibuprofen and Tylenol to help with the discomfort. I will give her a work note stating that she should work on the floor instead of climbing ladders and doing other things which aggravate the knee pain. Patient is agreeable to this plan. We have discussed the usual indications for return. Departure - Departure Disposition: 01 Home, Self Care Clinical Impression: Knee effusion, right Knee pain Qualifiers: Chronicity: acute Laterality: right Qualified Code(s): M25.561 - Pain in right knee Condition: Stable Instructions: ED Knee Pain UKO Comments: Please continue your plans to follow-up with [facility], and continue to work with your primary care physician on management of your chronic knee pain. As we have discussed, a neoprene knee sleeve may be helpful for your pain and for support of the knee, and can be found at stores like [employer], or [employer]. Forms: Activity restrictions
[2019-12-24 09:21] VITALS: BP 136/84
== END 2019-12-24 09:21 | disposition home or self-care (01) ==
LOC: ED 08:21
DX: M25.461 Effusion, right knee (principal); M25.561 Pain in right knee
CPT/HCPCS: 99281; 99284

== ENCOUNTER 2020-07-30 12:11 | Emergency (ER) | payer MEDICAID, OTHER ==
[2020-07-30 12:47] LABS: BASOPHILS % (AUTO) 0.4 %; HGB - HEMOGLOBIN 14.2 g/dL (12.0-16.0); LYMPHOCYTES % (AUTO) 32.4 %; MEAN CORPUSCULAR HEMOGLOBIN 30.5 pg (27.0-31.0); MEAN CORPUSCULAR HGB CONC 33.6 g/dL (32.0-36.0); MEAN CORPUSCULAR VOLUME 90.8 fL (81.0-99.0); MEAN PLATELET VOLUME 9.5 fL (7.9-10.8); MONOCYTES % (AUTO) 7.1 %; NEUTROPHILS % (AUTO) 56.7 %; PLT - PLATELET COUNT 311 10^3/uL (130-450); RED BLOOD COUNT 4.66 10^6/uL (4.20-5.40); RED CELL DISTRIBUTION WIDTH 12.3 % (12.0-15.0); WHITE BLOOD COUNT 15.8 x10^3/uL (4.8-10.8)
--- NOTE | 2020-07-30 12:47 | ED Physician Documentation ---
History of Present Illness - Stated complaint Stated Complaint: BLEEDING + - Chief complaint Chief Complaint: Abd Pain - History obtained from History obtained from: Patient - History of Present Illness Timing: Today Pain level max: 0 Pain level now: 0 - Additonal information Additional information: 24-year-old female 2 para 1 presents to the emergency department with vaginal bleeding that started yesterday. She relates he states it is like a normal menses. She states she took 3 home tests which were positive. She believes she may be 5 to 6 weeks . Nothing makes it better or worse. Does have slight pelvic cramping. No trauma. No fevers. No chills. No vomiting. No diarrhea. Patient states that she passed a large blood clot upon arrival to the emergency department. 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 : None HEENT: None Psych: None Musculoskeletal: None Derm: None - Past Surgical History Past Surgical History: Yes Ortho: Other HEENT: Tonsil/Adenoidectomy - Present Medications Home Medications: Ambulatory Orders Medication Instructions Recorded Confirmed No Known Home Medications 07/30/20 07/30/20 - Allergies Allergies/Adverse Reactions: Allergies Allergy/AdvReac Type Severity Reaction Status Date / Time hydrocodone bitartrate * Allergy Mild Emesis Verified 07/30/20 12:15 [From Vicodin] - Social History Does the pt smoke?: No Smoking Status: Never smoker Does the pt drink ETOH?: No Does the pt have substance abuse?: No - Immunizations Immunizations are current?: Yes - POLST Patient has POLST: No PD ED PE NORMAL - Vitals Vital signs reviewed: Yes - General General: Alert and oriented X 3, No acute distress - HEENT HEENT: Moist mucous membranes - Neck Neck: Supple, no meningeal sign - Cardiac Cardiac: RRR - Respiratory Respiratory: No respiratory distress, Clear bilaterally - Abdomen Abdomen: Soft, Non tender, Non distended - Female Female : Pt declined - Derm Derm: Warm and dry - Extremities Extremities: No edema - Neuro Neuro: Alert and oriented X 3 - Psych Psych: Normal mood, Normal affect Results - Vitals Vitals: Vital Signs - 24 hr 07/30/20 07/30/20 12:16 14:20 Temperature 36.8 C 36.6 C Heart Rate 70 68 Respiratory 18 16 Rate Blood Pressure 130/70 128/72 O2 Saturation 97 98 Oxygen O2 Source Room air - Labs Labs: Laboratory Tests 07/30/20 07/30/20 07/30/20 12:30 12:37 12:37 WBC 15.8 H RBC 4.66 Hgb 14.2 Hct 42.3 MCV 90.8 MCH 30.5 MCHC 33.6 RDW 12.3 Plt Count 311 MPV 9.5 Neut # (Auto) Not Reportable Lymph # (Auto) Not Reportable Beckham # (Auto) Not Reportable Eos # (Auto) Not Reportable Baso # (Auto) Not Reportable Absolute Nucleated RBC Not Reportable Total Counted 100 Band Neuts % (Manual) 0 Reactive Lymphs % (Man) 9 Abnorm Lymph % (Manual) 0 Nucleated RBC % Not Reportable Neutrophils # (Manual) 9.0 H Lymphocytes # (Manual) 5.8 H Monocytes # (Manual) 0.5 Eosinophils # (Manual) 0.5 Basophils # (Manual) 0.0 Differential Comment MANUAL DIFFERENTIAL WBC Morphology 2+ REACTIVE LYMPHS Platelet Estimate NORMAL (130-450,000) Platelet Morphology NORMAL APPEARANCE RBC Morph Micro Appear NORMAL APPEARANCE Sodium 137 Potassium 3.8 Chloride 103 Carbon Dioxide 24 Anion Gap 10.0 BUN 10 Creatinine 0.7 Estimated GFR (MDRD) 104 Glucose 92 Calcium 9.1 Total Bilirubin 0.6 AST 21 ALT 24 Alkaline Phosphatase 66 Total Protein 7.3 Albumin 4.4 Globulin 2.9 Albumin/Globulin Ratio 1.5 Lipase 28 HCG, Quant Urine Color DARK YELLOW Urine Clarity HAZY Urine pH 7.0 Ur Specific Solo 1.020 Urine Protein 30 H Urine Glucose (UA) NEGATIVE Urine Ketones NEGATIVE Urine Occult Blood LARGE H Urine Nitrite NEGATIVE Urine Bilirubin NEGATIVE Urine Urobilinogen 0.2 (NORMAL) Ur Leukocyte Esterase NEGATIVE Urine RBC TNTC H Urine WBC 0-3 Ur Squamous Epith Cells FEW Squamous Urine Bacteria Few Ur Microscopic Review INDICATED Urine Culture Comments NOT INDICATED Urine HCG, Qual POSITIVE 07/30/20 12:37 WBC RBC Hgb Hct MCV MCH MCHC RDW Plt Count MPV Neut # (Auto) Lymph # (Auto) Beckham # (Auto) Eos # (Auto) Baso # (Auto) Absolute Nucleated RBC Total Counted Band Neuts % (Manual) Reactive Lymphs % (Man) Abnorm Lymph % (Manual) Nucleated RBC % Neutrophils # (Manual) Lymphocytes # (Manual) Monocytes # (Manual) Eosinophils # (Manual) Basophils # (Manual) Differential Comment WBC Morphology Platelet Estimate Platelet Morphology RBC Morph Micro Appear Sodium Potassium Chloride Carbon Dioxide Anion Gap BUN Creatinine Estimated GFR (MDRD) Glucose Calcium Total Bilirubin AST ALT Alkaline Phosphatase Total Protein Albumin Globulin Albumin/Globulin Ratio Lipase HCG, Quant 504.21 Urine Color Urine Clarity Urine pH Ur Specific Solo Urine Protein Urine Glucose (UA) Urine Ketones Urine Occult Blood Urine Nitrite Urine Bilirubin Urine Urobilinogen Ur Leukocyte Esterase Urine RBC Urine WBC Ur Squamous Epith Cells Urine Bacteria Ur Microscopic Review Urine Culture Comments Urine HCG, Qual - Rads (name of study) OB ultrasound Radiology: Prelim report reviewed, EMP read contemporaneously PD MEDICAL DECISION MAKING - ED course Complexity details: reviewed results, re-evaluated patient, considered di fferential (no ectopic.), d/w patient ED course: 24-year-old female with a possible miscarriage. Her hCG is low at 500. There is no IUP seen. Recommend correlation with beta hCG. Patient will have this rechecked with her doctor next week. Patient is well-appearing, nontoxic. Afebrile. No significant lab abnormalities. Patient counseled regarding signs and symptoms for which I believe and urgent re-evaluation would be necessary. Patient with good understanding of and agreement to plan and is comfortable going home at this time This document was made in part using voice recognition software. While efforts are made to proofread this document, sound alike and grammatical errors may occur. IMPRESSION: 1. of uncertain location. No intrauterine gestational sac. Possible missed given the history of passing large clot. -Recommend trending beta hCG. -Short-term follow-up pelvic ultrasound if clinically indicated. 2. Suspected right corpus luteum measuring 1.5 cm. Departure - Departure Disposition: 01 Home, Self Care Clinical Impression: Bleeding in early Condition: Good Instructions: ED Miscarriage Poss Follow-Up: Sixto Reeves MD [Primary Care Provider] - Comments: Your hCG level is approximately 500 today. You need to have this rechecked in 3 days with your doctor to see if it is increasing or decreasing. If it is decreasing, you are likely having a miscarriage, if it is increasing you will need a repeat ultrasound in about a week. Return if you worsen. Discharge Date/Time: 07/30/20 14:30
[2020-07-30 12:55] LABS: ABNORMAL LYMPHS % (MANUAL) 0 %; BAND NEUTROPHILS % (MANUAL) 0 %
[2020-07-30 12:57] LABS: ALBUMIN 4.4 g/dL (3.2-5.5); ALBUMIN/GLOBULIN RATIO 1.5 (1.0-2.2); BILIRUBIN,TOTAL 0.6 mg/dL (0.2-1.0); CALCIUM 9.1 mg/dL (8.5-10.3); CREATININE 0.7 mg/dL (0.4-1.0); TOTAL PROTEIN 7.3 g/dL (6.7-8.2)
[2020-07-30 13:15] LABS: BILIRUBIN,URINE NEGATIVE (NEGATIVE); GLUCOSE, URINE (UA) NEGATIVE (NEGATIVE); KETONES,URINE (UA) NEGATIVE (NEGATIVE); LEUKOCYTE ESTERASE, URINE NEGATIVE (NEGATIVE); NITRITE,URINE NEGATIVE (NEGATIVE); OCCULT BLOOD,URINE LARGE (NEGATIVE); PROTEIN,URINE 30 mg/dL (NEGATIVE); UROBILINOGEN,URINE 0.2 (NORMAL) E.U./dL (NORMAL)
[2020-07-30 13:17] LABS: CLARITY,URINE HAZY (CLEAR); HCG UR QUAL POSITIVE
[2020-07-30 13:21] LABS: BACTERIA,URINE Few /HPF (None Seen); RBC,URINE TNTC /HPF (0-5); SQUAMOUS EPITHELIAL CELL,UR FEW Squamous (<= Few)
[2020-07-30 13:37] LABS: DIFFERENTIAL COMMENT MANUAL DIFFERENTIAL; EOSINOPHILS # (MANUAL) 0.5 10^3/uL (0-0.7); LYMPHOCYTES # (MANUAL) 5.8 10^3/uL (1.5-3.5); LYMPHOCYTES % (MANUAL) 28 %; MONOCYTES # (MANUAL) 0.5 10^3/uL (0.0-1.0); PLATELET ESTIMATE, MANUAL NORMAL (130-450,000) (NORMAL); PLATELET MORPHOLOGY NORMAL APPEARANCE (NORMAL); RBC MORPHOLOGY (MULTIPLE) NORMAL APPEARANCE (NORMAL)
[2020-07-30 14:30] VITALS: BP 128/72
--- NOTE | 2020-07-30 14:48 | Ultrasound Report ---
PROCEDURE: OB First Trimester w/TV INDICATIONS: preg vag bleed, 5-6 weeks preg OUTSIDE/PRIOR DATING DATA: Last menstrual period (LMP): Unknown. LMP-based estimated date of delivery (TANIA): Unknown. First dating scan (date and location): 07/30/2020. Estimated date of delivery (TANIA) from first dating scan: Not applicable. TECHNIQUE: Real-time scanning was performed of the fetus and maternal pelvic organs, with image documentation. Endovaginal scanning was also performed to better visualize the fetus and maternal ovaries. COMPARISON: None. FINDINGS: Embryo: No intrauterine gestational sac seen. Trace free fluid in the cervix. Measurement variability in dating: +/- 4 weeks by LMP, +/- 7 days by mean sac diameter (use before 6 weeks gestation if crown-rump length not able to be measured), +/- 5 days by crown-rump length (6-12 weeks gestation). Maternal organs: Ovaries are within normal limits. Right corpus luteum measuring 1.5 cm. Uterus trav sures 8.7 x 4.6 x 4.2 cm. Limited images through the kidneys demonstrate no hydronephrosis. IMPRESSION: 1. of uncertain location. No intrauterine gestational sac. Possible missed given the history of passing large clot. -Recommend trending beta hCG. -Short-term follow-up pelvic ultrasound if clinically indicated. 2. Suspected right corpus luteum measuring 1.5 cm. Reviewed by: Aureliano Martini MD on 07/30/2020 1:47 PM [place] Approved by: Aureliano Martini MD on 07/30/2020 1:47 PM [facility] Station ID: [id number]
--- OUTSIDE RECORDS SUMMARY | 2020-08-03 01:51 | EXTERNAL MEDICAL SUMMARY RPT | Continuity of Care Document ---
:1995 Demographics Phone Unavailable Preferred Language Hungarian Marital Status Unknown [employer] Affiliation Unknown Race Unknown Ethnic Group Unknown Author Organization [place] Address [address] [phone] Phone Care Team Providers Name Role Phone Demmler Unavailable Unavailable MD Unavailable Unavailable Nithinagrbret Unavailable Unavailable Problems date description facility 2018-03-17 19:05 OTH RELATED CONDITIONS, [facility] FIRST TRIMESTER 2018-03-17 19:05 EPIGASTRIC PAIN [facility] 2018-03-17 19:05 NAUSEA [facility] 2018-03-17 19:05 DIARRHEA, UNSPECIFIED [facility] dical [place] 2018-03-17 19:05 LESS THAN 8 WEEKS GESTATION OF [facility] 2018-04-21 16:37 OBESITY COMPLICATING , [facility] FIRST TRIMESTER 2018-04-21 16:37 ENCOUNTER FOR SCREENING, [facility] UNSPECIFIED 2018-04-22 08:00 ENCOUNTER FOR SCREENING, [facility] UNSPECIFIED 2018-06-27 12:05 ENCOUNTER FOR SUPRVSN OF NORMAL [facility] , SECOND TRIMESTER 2018-08-07 13:22 ENCNTR FOR SUPRVSN OF NORMAL PREG, [facility] UNSP, SECOND TRIMESTER 2018-08-15 12:30 ENCNTR FOR SUPRVSN OF NORMAL formerly [facility] , UNSP, UNSP TRIMESTER 2018-09-18 08:00 ABNORMAL UTERINE AND VAGINAL formerly [facility] BLEEDING, UNSPECIFIED 2018-10-17 16:33 ENCOUNTER FOR SCREENING, [facility] UNSPECIFIED 2018-10-22 14:15 GESTATIONAL HTN W/O SIGNIFICANT [facility] PROTEINURIA, THIRD TRIMESTER 2018-10-22 14:15 36 WEEKS GESTATION OF [facility] 2018-10-22 23:12 GASTRO-ESOPHAGEAL REFLUX DISEASE [facility] WITHOUT ESOPHAGITIS 2018-10-22 23:12 SEVERE PRE-ECLAMPSIA COMPLICATING [facility] CHILDBIRTH 2018-10-22 23:12 FIRST DEGREE PERINEAL LACERATION [facility] DURING DELIVERY 2018-10-22 23:12 OTHER SPECIFIED TRAUMA TO PERINEUM [facility] AND VULVA 2018-10-22 23:12 SMOKING (TOBACCO) COMPLICATING [facility] CHILDBIRTH 2018-10-22 23:12 DISEASES OF THE DIGESTIVE SYSTEM [facility] COMPLICATING CHILDBIRTH 2018-10-22 23:12 SINGLE LIVE [facility] 2018-10-22 23:12 36 WEEKS GESTATION OF [facility] 2018-12-04 14:10 ENCOUNTER FOR INSERTION OF [facility] INTRAUTERINE CONTRACEPTIVE DEVICE Allergies date description facility BEE VENOM [facility] CLINDAMYCIN [facility] KETOROLAC [facility] PROCHLORPERAZINE [facility] NO KNOWN ENVIRONMENTAL ALLERGIES [facility]ICILLINS [facility] SULFA ANTIBIOTICS [facility] NO KNOWN ALLERGIES [facility] NO ALLERGY INFORMATION AVAILABLE [facility] NO KNOWN ALLERGIES [facility] PREDNISONE [facility] ONDANSETRON HCL [facility] SUMATRIPTAN [facility] TAMSULOSIN [facility] TETRACYCLINE [facility] SULFA ANTIBIOTICS [facility] NO KNOWN ALLERGIES [facility] DIPYRONE [facility] NSAIDS [facility] PENICILLINS [facility] hydrocodone bitartrate * [facility] Results Social History date description facility [id number]
== END 2020-07-30 14:30 | disposition home or self-care (01) ==
LOC: ED 12:11
DX: O20.9 Hemorrhage in early pregnancy, unspecified (principal); Z3A.01 Less than 8 weeks gestation of pregnancy
CPT/HCPCS: 36415; 80053; 81001; 81003; 81025; 83690; 84702; 85025; 87086; 99284

== ENCOUNTER 2020-08-08 11:38 | Outpatient (CLI) | payer MEDICAID | END 2020-08-08 11:39 | disposition home or self-care (01) | LOC: LAB 11:38 | PROVIDERS: ATTEND Obstetrics & Gynecology | DX: O03.9 Complete or unspecified spontaneous abortion without complication (principal); Z13.21 Encounter for screening for nutritional disorder | CPT/HCPCS: 36415; 82306; 84702 ==

== ENCOUNTER 2020-08-22 21:43 | Emergency (ER) | payer MEDICAID ==
[2020-08-22 21:48] VITALS: BP 144/74
--- NOTE | 2020-08-22 22:30 | ED Physician Documentation ---
PD HPI LOWER EXT INJURY - Stated complaint Stated Complaint: LT KNEE PX - Chief complaint Chief Complaint: Trauma Ext - History obtained from History obtained from: Patient - Additional information Additional information: Patient comes emergency department chief complaint of left knee pain after her knee was pinned between a truck door and the frame of the truck at around 1600 today. Patient states the door started to shut and her knee was in the way and it collided with her knee, pushing it forcibly against the frame. Patient states she was able to walk after that, though the area was somewhat sore, but has gotten worse and worse over the course the evening. Patient complains of some mild swelling. She states the pain is worse along the inferomedial and medial aspects of the knee. No other injuries and no other complaints at this time. No prior issues with this knee. Review of Systems Ten Systems: 10 systems reviewed and negative Constitutional: reports: Reviewed and negative Eyes: reports: Reviewed and negative Ears: reports: Reviewed and negative Nose: reports: Reviewed and negative Throat: reports: Reviewed and negative Cardiac: reports: Reviewed and negative Respiratory: reports: Reviewed and negative GI: reports: Reviewed and negative : reports: Reviewed and negative Skin: reports: Reviewed and negative Musculoskeletal: reports: Joint pain, Pain with weight bearing Neurologic: reports: Reviewed and negative Psychiatric: reports: Reviewed and negative Endocrine: reports: Reviewed and negative Immunocompromised: reports: Reviewed and negative PD PAST MEDICAL HISTORY - Past Medical History Cardiovascular: None Respiratory: Asthma Endocrine/Autoimmune: None GI: 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 : None HEENT: None Psych: None Musculoskeletal: None Derm: None - Past Surgical History Past Surgical History: Yes Ortho: Other HEENT: Tonsil/Adenoidectomy - Present Medications Home Medications: Ambulatory Orders Medication Instructions Recorded Confirmed No Known Home Medications 07/30/20 07/30/20 - Allergies Allergies/Adverse Reactions: Allergies Allergy/AdvReac Type Severity Reaction Status Date / Time hydrocodone bitartrate * Allergy Mild Emesis Verified 08/22/20 21:45 [From Vicodin] - Social History Does the pt smoke?: No Smoking Status: Never smoker Does the pt drink ETOH?: No Does the pt have substance abuse?: No - Immunizations Immunizations are current?: Yes - POLST Patient has POLST: No PD ED PE NORMAL - Vitals Vital signs reviewed: Yes - General General: Alert and oriented X 3, No acute distress, Well developed/nourished - HEENT HEENT: Atraumatic, PERRL, EOMI, Moist mucous membranes - Neck Neck: Supple, no meningeal sign - Cardiac Cardiac: Strong equal pulses - Respiratory Respiratory: No respiratory distress - Derm Derm: Warm and dry - Extremities Extremities: No deformity, No calf tenderness / cord, Other (Moderate tenderness palpation left inferomedial knee. No deformity. Mild edema. Mild contusion. Mild contusion lateral aspect of knee with mild tenderness palpation.) - Neuro Neuro: Alert and oriented X 3 - Psych Psych: Normal mood, Normal affect Results - Vitals Vitals: Vital Signs - 24 hr 08/22/20 08/22/20 21:45 23:39 Temperature 36.5 C Heart Rate 67 74 Respiratory 16 18 Rate Blood Pressure 144/74 H O2 Saturation 99 99 Oxygen O2 Source Room air - Rads (name of study) L knee XR Radiology: Final report received, EMP read indepedently, See rad report (neg) PD MEDICAL DECISION MAKING - ED course Complexity details: reviewed results, re-evaluated patient, considered differential, d/w patient ED course: X-ray of left knee was unremarkable. We discussed home management of symptoms, as well as usual indications for return. Departure - Departure Disposition: 01 Home, Self Care Clinical Impression: Knee contusion Qualifiers: Encounter type: initial encounter Laterality: left Qualified Code(s): S80.02XA - Contusion of left knee, initial encounter Condition: Stable Instructions: ED Contusion Lower Ext Comments: Your x-rays look good. There is no evidence of a broken bone from this injury. Please follow-up with your primary care physician as needed. You may apply ice to the area and use ibuprofen and Tylenol to help it feel better. Discharge Date/Time: 08/22/20 23:39
--- NOTE | 2020-08-23 08:18 | XRAY Report ---
PROCEDURE: Knee 3 View LT INDICATIONS: injury, pain with weight-bearing TECHNIQUE: 3 views of the left knee(s) were acquired. COMPARISON: None. FINDINGS: Bones: No fractures or dislocations. No suspicious bony lesions. Soft tissues: No joint effusion. No suspicious soft tissue calcifications. IMPRESSION: No acute fracture. No osseous lesion. If symptoms and/or clinical suspicion for patholog y continue, further assessment with repeat plain films, or advanced imaging (e.g., CT, MRI, or bone s can) is recommended for further assessment. Reviewed by: Zita Stewart MD on 08/23/2020 8:17 AM PST Approved by: Zita Stewart MD on 08/23/2020 8:17 AM PST Station ID: [id number]
== END 2020-08-22 23:39 | disposition home or self-care (01) ==
LOC: ED 21:43
DX: S80.02XA Contusion of left knee, initial encounter (principal); W23.0XXA Caught, crushed, jammed, or pinched between moving objects, initial encounter
CPT/HCPCS: 99282; 99283

== ENCOUNTER 2020-10-02 06:08 | Emergency (ER) | payer MEDICAID ==
[2020-10-02] MEDS ORDERED: IBUPROFEN 600 MG TABLET PO STA (06:56)
--- NOTE | 2020-10-02 06:58 | ED Physician Documentation ---
PD HPI LOWER EXT INJURY - Stated complaint Stated Complaint: RT KNEE PX - Chief complaint Chief Complaint: Trauma Ext - History obtained from History obtained from: Patient - History of Present Illness PD HPI LOW EXT INJURY LOCATION: Right, Knee Type of injury: Fall Where injury occurred: Home Timing - onset: Enter time (05:30), Today Timing - details: Abrupt onset Pain level now: 4 Improved by: Rest Worsened by: Moving, Palpating Associated symptoms: No: Weakness, Numbness Recently seen: Emergency Dept (T+R last month from this ED for left knee injury) - Additional information Additional information: patient tripped while walking down stairs at home 5:30 AM this morning, twisted her right knee. she c/o right knee pain, worse with weight-bearing although she is able to bear weight. Review of Systems Musculoskeletal: reports: Joint pain (right knee), Pain with weight bearing. 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 : None HEENT: None Psych: None Musculoskeletal: None Derm: None - Past Surgical History Past Surgical History: Yes Ortho: Other HEENT: Tonsil/Adenoidectomy - Present Medications Home Medications: Ambulatory Orders Medication Instructions Recorded Confirmed Pnv No.95/Ferrous Fum/Folic AC 1 tab ORAL DAILY 10/02/20 10/02/20 [ Tablet] - Allergies Allergies/Adverse Reactions: Allergies Allergy/AdvReac Type Severity Reaction Status Date / Time hydrocodone bitartrate * Allergy Mild Emesis Verified 10/02/20 06:18 [From Vicodin] - Social History Does the pt smoke?: No Smoking Status: Never smoker Does the pt drink ETOH?: No Does the pt have substance abuse?: No - Immunizations Immunizations are current?: Yes - POLST Patient has POLST: No PD ED PE NORMAL - Vitals Vital signs reviewed: Yes - General General: Alert and oriented X 3, No acute distress, Well developed/nourished - Derm Derm: Normal color, Warm and dry - Extremities Extremities: Other (ROM intact right knee but increased pain with flexion) - Neuro Neuro: No motor deficit, No sensory deficit PD ED PE EXPANDED - Extremities Extremities: Tenderness (right knee anterolateral aspects without deformity or obvious swelling). No: Bruising, Abrasion, Laceration Results - Vitals Vitals: Vital Signs - 24 hr 10/02/20 10/02/20 06:10 07:29 Temperature 36.0 C L 36.8 C Heart Rate 82 64 Respiratory 16 16 Rate Blood Pressure 131/78 H 117/63 O2 Saturation 98 98 Oxygen O2 Source Room air - Rads (name of study) right knee xrays Radiology: Prelim report reviewed, See rad report PD MEDICAL DECISION MAKING - ED course Complexity details: reviewed old records, reviewed results, re-evaluated patient, considered differential, d/w patient Departure - Departure Disposition: 01 Home, Self Care Clinical Impression: Knee injury Qualifiers: Encounter type: initial encounter Laterality: right Qualified Code(s): S89.91XA - Unspecified injury of right lower leg, initial encounter Condition: Good Instructions: ED Sprain Knee Follow-Up: Sixto Reeves MD [Primary Care Provider] - Forms: Activity restrictions Discharge Date/Time: 10/02/20 07:37
[2020-10-02 07:29] VITALS: BP 117/63
--- NOTE | 2020-10-02 09:45 | XRAY Report ---
PROCEDURE: Knee 4 View RT INDICATIONS: fell/injury to R knee, c/o pain/swelling TECHNIQUE: 3 views of the right knee(s) were acquired. COMPARISON: None. FINDINGS: Bones: No fractures or dislocations. No suspicious bony lesions. Soft tissues: No joint effusion. No suspicious soft tissue calcifications. IMPRESSION: No evidence acute bony abnormality of the right knee. A preliminary report with the above findings was provided at the time of the study by [facility]. Reviewed by: Tre Burkett MD on 10/02/2020 8:44 AM IVELISSE Approved by: Tre Burkett MD on 10/02/2020 8:44 AM IVELISSE Station ID: [id number]
== END 2020-10-02 07:37 | disposition home or self-care (01) ==
LOC: ED 06:08
DX: S89.91XA Unspecified injury of right lower leg, initial encounter (principal); W10.8XXA Fall (on) (from) other stairs and steps, initial encounter; Y93.01 Activity, walking, marching and hiking; Y92.009 Unspecified place in unspecified non-institutional (private) residence as the place of occurrence of the external cause
CPT/HCPCS: 73564; 99282; 99283; A9270

== ENCOUNTER 2020-11-17 21:59 | Emergency (ER) | payer MEDICAID ==
--- OUTSIDE RECORDS SUMMARY | 2020-11-17 22:02 | EXTERNAL MEDICAL SUMMARY RPT | Continuity of Care Document ---
:1995 Demographics Phone Unavailable Preferred Language Unknown Marital Status Unknown Zoroastrianism Affiliation Unknown Race Unknown Ethnic Group Unknown Author Organization [facility] Address [address] [place] [address] Phone Social History date description facility [phone]
--- OUTSIDE RECORDS SUMMARY | 2020-11-17 22:04 | EXTERNAL MEDICAL SUMMARY RPT | Continuity of Care Document ---
:1995 Demographics Phone Unavailable Preferred Language Unknown Marital Status Unknown Alevism Affiliation Unknown Race Unknown Ethnic Group Unknown Author Organization [facility] Address [address] [phone] Phone Social History date description facility [phone]
[2020-11-17 22:41] LABS: BILIRUBIN,URINE NEGATIVE (NEGATIVE); CLARITY,URINE CLEAR (CLEAR); GLUCOSE, URINE (UA) NEGATIVE (NEGATIVE); HCG UR QUAL POSITIVE; KETONES,URINE (UA) NEGATIVE (NEGATIVE); LEUKOCYTE ESTERASE, URINE NEGATIVE (NEGATIVE); NITRITE,URINE NEGATIVE (NEGATIVE); OCCULT BLOOD,URINE TRACE-INTA (NEGATIVE); PROTEIN,URINE NEGATIVE (NEGATIVE); UROBILINOGEN,URINE 0.2 (NORMAL) E.U./dL (NORMAL)
--- NOTE | 2020-11-18 01:34 | ED Physician Documentation ---
History of Present Illness - Stated complaint Stated Complaint: BACK TO ABD PAIN - Chief complaint Chief Complaint: Back Pain - History obtained from History obtained from: Patient - Additonal information Additional information: 25-year-old woman with a last menstrual period around the beginning of September presents with bilateral lumbar back pain radiating to the mid abdomen for the past 5 days, gradual in onset, waxing and waning in severity, constant, aching, associated with dysuria for the past day. Denies hematuria. Patient has not had her first appointment yet. She denies vaginal bleeding, uterine contractions, fever, vision changes, nausea. 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 : None HEENT: None Psych: None Musculoskeletal: None Derm: None - Past Surgical History Past Surgical History: Yes Ortho: Other HEENT: Tonsil/Adenoidectomy - Present Medications Home Medications: Ambulatory Orders Medication Instructions Recorded Confirmed Pnv No.95/Ferrous Fum/Folic AC 1 tab ORAL DAILY 10/02/20 10/02/20 [ Tablet] - Allergies Allergies/Adverse Reactions: Allergies Allergy/AdvReac Type Severity Reaction Status Date / Time hydrocodone bitartrate * Allergy Mild Emesis Verified 10/02/20 06:18 [From Vicodin] - Social History Does the pt smoke?: No Smoking Status: Never smoker Does the pt drink ETOH?: No Does the pt have substance abuse?: No - Immunizations Immunizations are current?: Yes - POLST Patient has POLST: No PD ED PE NORMAL - Vitals Vital signs reviewed: Yes - General General: Alert and oriented X 3, No acute distress, Well developed/nourished - HEENT HEENT: Atraumatic, PERRL, EOMI - Neck Neck: Supple, no meningeal sign - Cardiac Cardiac: RRR - Respiratory Respiratory: No respiratory distress, Clear bilaterally - Abdomen Abdomen: Non tender, Non distended, Other (discomfort to palpation BL LQ) - Female Female : Deferred, Pt declined - Rectal Rectal: Deferred - Back Back: No CVA TTP - Derm Derm: Normal color, Warm and dry - Extremities Extremities: No deformity - Neuro Neuro: Alert and oriented X 3 - Psych Psych: Normal mood, Normal affect Results - Vitals Vitals: Vital Signs - 24 hr 11/17/20 11/17/20 11/18/20 22:05 22:20 01:35 Temperature 36.0 C L 36.5 C Heart Rate 73 73 63 Respiratory 16 16 16 Rate Blood Pressure 105/71 105/71 121/69 O2 Saturation 99 99 98 Oxygen O2 Source Room air - Labs Labs: Laboratory Tests 11/17/20 11/17/20 22:30 22:30 Urine Color YELLOW Urine Clarity CLEAR Urine pH 6.0 Ur Specific [place] 1.025 Urine Protein NEGATIVE Urine Glucose (UA) NEGATIVE Urine Ketones NEGATIVE Urine Occult Blood TRACE-INTA Urine Nitrite NEGATIVE Urine Bilirubin NEGATIVE Urine Urobilinogen 0.2 (NORMAL) Ur Leukocyte Esterase NEGATIVE Ur Microscopic Review NOT INDICATED Urine Culture Comments NOT INDICATED Urine HCG, Qual POSITIVE PD MEDICAL DECISION MAKING - ED course ED course: 25yF Presents with bilateral mild aching back pain radiating to the abdomen and dysuria. She is concerned that she has a urinary tract infection, however her urinalysis is normal. Ultrasound with evidence of early intrauterine gestation without pole visualized. Patient will follow up with her [facility]. Return precautions given. Departure - Departure Disposition: 01 Home, Self Care Clinical Impression: Back pain, Abdominal pain Condition: Good Instructions: ED Abdominal Pain Unkn Cause Follow-Up: Lorena Scott MD [Provider Admit Priv/Credential] - Comments: You are seen in the emergency department for back pain going to your abdomen. Your urine sample did not show signs of infection. Your ultrasound showed an early at 5 weeks 6 days. Please return to the emergency department if you have any new or worsening symptoms or other concerns. Follow-up with your [facility]. Discharge Date/Time: 11/18/20 01:35
[2020-11-18 01:36] VITALS: BP 121/69
--- NOTE | 2020-11-18 11:09 | Ultrasound Report ---
PROCEDURE: OB First Trimester w/TV INDICATIONS: BL lumbar pain radiating to abdomen OUTSIDE/PRIOR DATING DATA: Last menstrual period (LMP): Unknown. LMP-based estimated date of delivery (TANIA): Unknown. First dating scan (date and location): This examination. Estimated date of delivery (TANIA) from first dating scan: See below. TECHNIQUE: Real-time scanning was performed of the fetus and maternal pelvic organs, with image documentation. Endovaginal scanning was also performed to better visualize the fetus and maternal ovaries. COMPARISON: None. FINDINGS: Embryo: A presumed intrauterine gestational sac is visualized and yolk sac. However, pole is n ot visualized at this time. Mean gestational sac diameter measures 1.05 cm, 5 weeks 6 days. Measurement variability in dating: +/- 4 weeks by LMP, +/- 7 days by mean sac diameter (use before 6 weeks gestation if crown-rump length not able to be measured), +/- 5 days by crown-rump length (6-12 weeks gestation). Maternal organs: Ovaries unremarkable except for a presumed right-sided corpus luteum. The left ovar y is not seen. IMPRESSION: A presumed intrauterine gestational sac however no pole identified, statistically this is due t o early IUP versus spontaneous . Please correlate clinically with beta hCG values and recomme nd follow-up with one week pelvic ultrasound. Findings are concordant with the preliminary study inte rpretation provided at the time of the study. Reviewed by: George Dominguez MD on 11/18/2020 11:07 AM PDT Approved by: George Dominguez MD on 11/18/2020 11:07 AM PDT Station ID: [id number]
== END 2020-11-18 01:35 | disposition home or self-care (01) ==
LOC: ED 21:59
DX: O99.891 Other specified diseases and conditions complicating pregnancy (principal); M54.5 Low back pain; R10.31 Right lower quadrant pain; R10.32 Left lower quadrant pain; R30.0 Dysuria; Z3A.01 Less than 8 weeks gestation of pregnancy
CPT/HCPCS: 81001; 81003; 81025; 87086; 99284

== ENCOUNTER 2020-12-05 08:00 | Outpatient (CLI) | payer MEDICAID ==
[2020-12-05 19:01] LABS: MUDS CUTOFF CONCENTRATIONS CUTOFF CONC BELOW:
[2020-12-05 20:27] LABS: BILIRUBIN,URINE NEGATIVE (NEGATIVE); GLUCOSE, URINE (UA) NEGATIVE (NEGATIVE); KETONES,URINE (UA) NEGATIVE (NEGATIVE); LEUKOCYTE ESTERASE, URINE TRACE (NEGATIVE); NITRITE,URINE NEGATIVE (NEGATIVE); OCCULT BLOOD,URINE NEGATIVE (NEGATIVE); PH,URINE 7.5 PH (5.0-7.5); PROTEIN,URINE NEGATIVE (NEGATIVE); UROBILINOGEN,URINE 0.2 (NORMAL) E.U./dL (NORMAL)
[2020-12-05 20:45] LABS: CLARITY,URINE CLEAR (CLEAR)
[2020-12-05 20:49] LABS: AMORPHOUS SEDIMENT,UR Moderate /LPF; BACTERIA,URINE Moderate /HPF (None Seen); RBC,URINE 0-5 /HPF (0-5); SQUAMOUS EPITHELIAL CELL,UR MANY Squamous (<= Few)
[2020-12-05 20:53] LABS: THC CANNABINOID SCREEN, URINE POSITIVE (NEGATIVE)
[2020-12-05 20:54] LABS: AMPHETAMINE SCREEN,URINE NEGATIVE (NEGATIVE); BARBITURATE SCREEN,UR NEGATIVE (NEGATIVE); BENZODIAZEPINES SCREEN, URINE NEGATIVE (NEGATIVE); COCAINE SCREEN URINE NEGATIVE (NEGATIVE); METHADONE SCREEN, URINE NEGATIVE (NEGATIVE); METHAMPHETAMINES SCREEN, URINE NEGATIVE (NEGATIVE); OPIATE SCREEN, URINE NEGATIVE (NEGATIVE); OXYCODONE SCREEN, URINE NEGATIVE (NEGATIVE); PROPOXYPHENE SCREEN, URINE NEGATIVE (NEGATIVE); TRICYCLIC ANTIDEPRESSANT,URINE NEGATIVE (NEGATIVE)
== END 2020-12-05 23:59 | disposition home or self-care (01) ==
LOC: LAB.WC 08:00
PROVIDERS: ATTEND Advanced Practice Midwife
DX: Z36.89 Encounter for other specified antenatal screening (principal); O09.90 Supervision of high risk pregnancy, unspecified, unspecified trimester
CPT/HCPCS: 80306; 81001; 87086

== ENCOUNTER 2020-12-20 18:51 | Outpatient (CLI) | payer MEDICAID ==
[2020-12-20 19:55] LABS: BASOPHILS # (AUTO) 0.1 10^3/uL (0.0-0.1); BASOPHILS % (AUTO) 0.3 %; EOSINOPHILS # (AUTO) 0.2 10^3/uL (0.0-0.7); EOSINOPHILS % (AUTO) 1.3 %; HCT - HEMATOCRIT 38.1 % (37.0-47.0); HGB - HEMOGLOBIN 12.9 g/dL (12.0-16.0); LYMPHOCYTES # (AUTO) 5.6 10^3/uL (1.5-3.5); LYMPHOCYTES % (AUTO) 31.3 %; MEAN CORPUSCULAR HEMOGLOBIN 30.2 pg (27.0-31.0); MEAN CORPUSCULAR HGB CONC 33.9 g/dL (32.0-36.0); MEAN CORPUSCULAR VOLUME 89.2 fL (81.0-99.0); MEAN PLATELET VOLUME 9.7 fL (7.9-10.8); MONOCYTES # (AUTO) 0.9 10^3/uL (0.0-1.0); MONOCYTES % (AUTO) 5.2 %; NEUTROPHILS % (AUTO) 61.5 %; PLT - PLATELET COUNT 320 10^3/uL (130-450); RED BLOOD COUNT 4.27 10^6/uL (4.20-5.40); RED CELL DISTRIBUTION WIDTH 12.6 % (12.0-15.0)
--- NOTE | 2020-12-21 17:04 | Ultrasound Report ---
PROCEDURE: OB First Trimester w/TV INDICATIONS: SUPERVISION OF HIGH RISK OUTSIDE/PRIOR DATING DATA: Last menstrual period (LMP): 10/09/2020. LMP-based estimated date of delivery (TANIA): 07/16/2021. First dating scan (date and location): 11/18/2020, it is noted a pole was not identified.. Estimated date of delivery (TANIA) from 12/20/2020 ultrasound exam: 07/15/2021. The below data below was generated using the 12/20/20 ultrasound TANIA of 07/15/2021 TECHNIQUE: Real-time scanning was performed of the fetus and maternal pelvic organs, with image documentation. Endovaginal scanning was also performed to better visualize the fetus and maternal ovaries. COMPARISON: OB ultrasound 11/18/2020 FINDINGS: Embryo: Single live intrauterine is identified with heart rate of 167 bpm. Denning-rum p length measures 3.5 cm corresponding to 10 weeks 3 days. A small focus of subchorionic hemorrhage i s identified measuring 2.3 x 1.1 x 1.6 cm. Measurement variability in dating: +/- 4 weeks by LMP, +/- 7 days by mean sac diameter (use before 6 weeks gestation if crown-rump length not able to be measured), +/- 5 days by crown-rump length (6-12 weeks gestation). Maternal organs: Ovaries demonstrate a right corpus luteal cyst.. IMPRESSION: 1. Single live intrauterine with ultrasound gestational age today of 10 weeks 3 days. 2. Small subchorionic hemorrhage. 3. Recommend follow-up imaging at 20-22 weeks for dates and anatomy. Reviewed by: Marleen Martinez MD on 12/21/2020 5:03 PM PDT Approved by: Marleen Martinez MD on 12/21/2020 5:03 PM PDT Station ID: [id number]
[2020-12-22 12:41] LABS: HEPATITIS B SURFACE ANTIGEN NON-REACTIVE (NON-REACTIVE); HEPATITIS C ANTIBODY NON-REACTIVE (NON-REACTIVE)
[2020-12-22 15:35] LABS: HIV AG/AB 4TH GEN NON-REACTIVE (NON-REACTIVE)
== END 2020-12-20 18:52 | disposition home or self-care (01) ==
LOC: DI 18:51
PROVIDERS: ATTEND Advanced Practice Midwife
DX: O09.91 Supervision of high risk pregnancy, unspecified, first trimester (principal); O09.291 Supervision of pregnancy with other poor reproductive or obstetric history, first trimester; O46.8X1 Other antepartum hemorrhage, first trimester; Z36.89 Encounter for other specified antenatal screening; Z87.59 Personal history of other complications of pregnancy, childbirth and the puerperium; Z3A.10 10 weeks gestation of pregnancy
CPT/HCPCS: 36415; 85025; 86592; 86762; 86787; 86803; 86850; 86900; 86901; 87340; 87389

== ENCOUNTER 2021-01-18 08:00 | Outpatient (CLI) | payer MEDICAID ==
[2021-01-18 20:04] LABS: BACTERIAL VAGINOSIS DNA POSITIVE (NEGATIVE); CANDIDA GLABRATA DNA NEGATIVE (NEGATIVE); CANDIDA GROUP DNA NEGATIVE (NEGATIVE); CANDIDA KRUSEI DNA NEGATIVE (NEGATIVE); TRICHOMONAS VAGINALIS DNA NEGATIVE (NEGATIVE)
== END 2021-01-18 23:59 | disposition home or self-care (01) ==
LOC: LAB.WC 08:00
PROVIDERS: ATTEND Obstetrics & Gynecology
DX: O09.90 Supervision of high risk pregnancy, unspecified, unspecified trimester (principal); O99.891 Other specified diseases and conditions complicating pregnancy; N89.8 Other specified noninflammatory disorders of vagina
CPT/HCPCS: 87661; 87801

== ENCOUNTER 2021-01-28 19:33 | Emergency (ER) | payer MEDICAID ==
[2021-01-28 19:56] LABS: BASOPHILS # (AUTO) 0.1 10^3/uL (0.0-0.1); BASOPHILS % (AUTO) 0.3 %; EOSINOPHILS # (AUTO) 0.3 10^3/uL (0.0-0.7); EOSINOPHILS % (AUTO) 1.2 %; HCT - HEMATOCRIT 39.2 % (37.0-47.0); HGB - HEMOGLOBIN 13.3 g/dL (12.0-16.0); LYMPHOCYTES # (AUTO) 4.2 10^3/uL (1.5-3.5); LYMPHOCYTES % (AUTO) 19.7 %; MEAN CORPUSCULAR HEMOGLOBIN 30.6 pg (27.0-31.0); MEAN CORPUSCULAR HGB CONC 33.9 g/dL (32.0-36.0); MEAN CORPUSCULAR VOLUME 90.3 fL (81.0-99.0); MEAN PLATELET VOLUME 9.7 fL (7.9-10.8); MONOCYTES % (AUTO) 4.5 %; NEUTROPHILS # (AUTO) 15.9 10^3/uL (1.5-6.6); NEUTROPHILS % (AUTO) 73.8 %; PLT - PLATELET COUNT 301 10^3/uL (130-450); RED BLOOD COUNT 4.34 10^6/uL (4.20-5.40); RED CELL DISTRIBUTION WIDTH 12.3 % (12.0-15.0); WHITE BLOOD COUNT 21.5 x10^3/uL (4.8-10.8)
[2021-01-28 19:59] LABS: BILIRUBIN,URINE NEGATIVE (NEGATIVE); GLUCOSE, URINE (UA) NEGATIVE (NEGATIVE); KETONES,URINE (UA) NEGATIVE (NEGATIVE); LEUKOCYTE ESTERASE, URINE NEGATIVE (NEGATIVE); NITRITE,URINE NEGATIVE (NEGATIVE); OCCULT BLOOD,URINE NEGATIVE (NEGATIVE); PROTEIN,URINE NEGATIVE (NEGATIVE); UROBILINOGEN,URINE 0.2 (NORMAL) E.U./dL (NORMAL)
[2021-01-28 20:05] LABS: CLARITY,URINE HAZY (CLEAR); HCG UR QUAL POSITIVE
[2021-01-28 20:13] LABS: BACTERIA,URINE Few /HPF (None Seen); RBC,URINE 0-5 /HPF (0-5); SQUAMOUS EPITHELIAL CELL,UR MANY Squamous (<= Few); WBC,URINE 0-3 /HPF (0-5)
[2021-01-28 20:15] LABS: ALBUMIN 3.9 g/dL (3.2-5.5); BILIRUBIN,TOTAL 0.6 mg/dL (0.2-1.0); CALCIUM 9.2 mg/dL (8.5-10.3); CREATININE 0.6 mg/dL (0.4-1.0); POTASSIUM 3.7 mmol/L (3.5-5.0); TOTAL PROTEIN 7.1 g/dL (6.7-8.2)
[2021-01-28 20:16] LABS: ALBUMIN/GLOBULIN RATIO 1.2 (1.0-2.2)
[2021-01-28] MEDS ORDERED: ACETAMINOPHEN 325 MG TABLET PO STA (20:32)
--- NOTE | 2021-01-28 20:32 | ED Physician Documentation ---
PD HPI ABD PAIN - Stated complaint Stated Complaint: ABD PAIN - Chief complaint Chief Complaint: Abd Pain - History obtained from History obtained from: Patient (25-year-old at 15 weeks presents with right-sided abdominal pain gradual onset today. She started taking Flagyl for BV and subsequently developed persistent gradual onset constant but now severe right-sided abdominal pain. She is been nauseous but no vomiting. 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 : None HEENT: None Psych: None Musculoskeletal: None Derm: None - Past Surgical History Past Surgical History: Yes Ortho: Other HEENT: Tonsil/Adenoidectomy - Present Medications Home Medications: Ambulatory Orders Medication Instructions Recorded Confirmed Pnv No.95/Ferrous Fum/Folic AC 1 tab ORAL DAILY 10/02/20 01/28/21 [ Tablet] metroNIDAZOLE [Flagyl] 500 mg PO BID 01/28/21 01/28/21 - Allergies Allergies/Adverse Reactions: Allergies Allergy/AdvReac Type Severity Reaction Status Date / Time hydrocodone bitartrate * Allergy Mild Emesis Verified 01/28/21 19:43 [From Vicodin] - Social History Does the pt smoke?: No Smoking Status: Never smoker Does the pt drink ETOH?: No Does the pt have substance abuse?: No - Immunizations Immunizations are current?: Yes - POLST Patient has POLST: No PD ED PE NORMAL - Vitals Vital signs reviewed: Yes - General General: Alert and oriented X 3, No acute distress - HEENT HEENT: PERRL, EOMI - Neck Neck: Supple, no meningeal sign, No bony TTP - Cardiac Cardiac: RRR, No murmur - Respiratory Respiratory: No respiratory distress, Clear bilaterally - Abdomen Abdomen: Normal bowel sounds, Other (R mid abd TTP) - Female Female : Other (bedside sono live IUP with FHR 150) - Back Back: No CVA TTP, No spinal TTP - Derm Derm: Normal color, Warm and dry - Extremities Extremities: No edema, No calf tenderness / cord - Neuro Neuro: Alert and oriented X 3, Normal speech Results - Vitals Vitals: Vital Signs - 24 hr 01/28/21 01/28/21 19:43 19:46 Temperature 36.7 C 36.7 C Heart Rate 93 93 Respiratory 18 18 Rate Blood Pressure 144/70 H 144/70 H O2 Saturation 100 100 Oxygen O2 Source Room air - Labs Labs: Laboratory Tests 01/28/21 01/28/21 01/28/21 19:53 19:53 19:54 WBC 21.5 H RBC 4.34 Hgb 13.3 Hct 39.2 MCV 90.3 MCH 30.6 MCHC 33.9 RDW 12.3 Plt Count 301 MPV 9.7 Neut # (Auto) 15.9 H Lymph # (Auto) 4.2 H [place] # (Auto) 1.0 Eos # (Auto) 0.3 Baso # (Auto) 0.1 Absolute Nucleated RBC 0.00 Nucleated RBC % 0.0 Manual Slide Review Indicated WBC Morphology NORMAL APPEARANCE Platelet Estimate NORMAL (130-450,000) Platelet Morphology NORMAL APPEARANCE RBC Morph Micro Appear NORMAL APPEARANCE Sodium 135 Potassium 3.7 Chloride 101 Carbon Dioxide 23 Anion Gap 11.0 BUN 12 Creatinine 0.6 Estimated GFR (MDRD) 123 Glucose 89 Calcium 9.2 Total Bilirubin 0.6 AST 27 ALT 32 Alkaline Phosphatase 56 Total Protein 7.1 Albumin 3.9 Globulin 3.2 Albumin/Globulin Ratio 1.2 Lipase 33 Urine Color Urine Clarity Urine pH Ur Specific [place] Urine Protein Urine Glucose (UA) Urine Ketones Urine Occult Blood Urine Nitrite Urine Bilirubin Urine Urobilinogen Ur Leukocyte Esterase Urine RBC Urine WBC Ur Squamous Epith Cells Urine Bacteria Ur Microscopic Review Urine Culture Comments Urine HCG, Qual POSITIVE 01/28/21 19:54 WBC RBC Hgb Hct MCV MCH MCHC RDW Plt Count MPV Neut # (Auto) Lymph # (Auto) [place] # (Auto) Eos # (Auto) Baso # (Auto) Absolute Nucleated RBC Nucleated RBC % Manual Slide Review WBC Morphology Platelet Estimate Platelet Morphology RBC Morph Micro Appear Sodium Potassium Chloride Carbon Dioxide Anion Gap BUN Creatinine Estimated GFR (MDRD) Glucose Calcium Total Bilirubin AST ALT Alkaline Phosphatase Total Protein Albumin Globulin Albumin/Globulin Ratio Lipase Urine Color YELLOW Urine Clarity HAZY Urine pH 7.0 Ur Specific [place] 1.020 Urine Protein NEGATIVE Urine Glucose (UA) NEGATIVE Urine Ketones NEGATIVE Urine Occult Blood NEGATIVE Urine Nitrite NEGATIVE Urine Bilirubin NEGATIVE Urine Urobilinogen 0.2 (NORMAL) Ur Leukocyte Esterase NEGATIVE Urine RBC 0-5 Urine WBC 0-3 Ur Squamous Epith Cells MANY Squamous H Urine Bacteria Few Ur Microscopic Review INDICATED Urine Culture Comments NOT INDICATED Urine HCG, Qual PD MEDICAL DECISION MAKING - ED course ED course: -year-old woman, G1 at 15 weeks gestation presents with pain that is quite concerning for appendicitis associated with a white count of 21,000. An ultrasound was ordered and the gas tester reports to me that she is fairly confident that the patient has appendicitis, albeit with some reservation because the anatomy is atypical given her gravid status. I discussed the case in person with her surgeon, Dr. Yuriy Chávez who felt that the patient probably should be transferred for urgent MRI to confirm the diagnosis prior to considering OR. Unasyn was ordered and I spoke with Dr. Mcgraw At [facility] who accepts her in transfer for further evaluation and treatment. Departure - Departure Disposition: 02 Transfer Acute Care Hosp Clinical Impression: Acute abdomen, 15 weeks gestation of Condition: Stable
[2021-01-28] MEDS ORDERED: IOVERSOL 320 50 ML VIAL ONE (20:34)
[2021-01-28 20:57] LABS: PLATELET ESTIMATE, MANUAL NORMAL (130-450,000) (NORMAL); PLATELET MORPHOLOGY NORMAL APPEARANCE (NORMAL); RBC MORPHOLOGY (MULTIPLE) NORMAL APPEARANCE (NORMAL); SLIDE REVIEW? Indicated; WBC MORPHOLOGY (MULTIPLE) NORMAL APPEARANCE (NORMAL)
[2021-01-28] MEDS ORDERED: AMPICILLIN/SULBACTAM 3 GM in SODIUM CHLORIDE 0.9% MINIBAG 100 ML IV STA (21:35)
--- NOTE | 2021-01-28 21:54 | Ultrasound Report ---
PROCEDURE: Abdomen Limited INDICATIONS: R mid abs pain, eval appy 15w preg TECHNIQUE: Real-time focused scanning was performed of the abdomen, with image documentation. COMPARISON: None FINDINGS: Single living intrauterine gestation is present with a heart rate of 147 bpm. The appendix is not definitively seen. No evidence of appendicitis. IMPRESSION: 1. Single living intrauterine gestation. 2. No definite appendiceal visualization. No evidence of appendicitis. Reviewed by: Zita Stewart MD on 01/28/2021 9:53 PM PDT Approved by: Zita Stewart MD on 01/28/2021 9:53 PM PDT Station ID: [id number]
[2021-01-28 22:06] VITALS: BP 122/66
[2021-01-28 22:55] LABS: B. PARAPERTUSSIS- RESP PCR PAN NOT DETECTED; B. PERTUSSIS- RESP PCR PANEL NOT DETECTED; C. PNEUMONIAE- RESP PCR PANEL NOT DETECTED; CORONAVIRUS 229E-RESP PCR NOT DETECTED; CORONAVIRUS HKU1-RESP PCR NOT DETECTED; CORONAVIRUS NL63-RESP PCR NOT DETECTED; CORONAVIRUS OC43-RESP PCR NOT DETECTED; HUMAN METAPNEUMOVIRUS NOT DETECTED; INFLUENZA A- RESP PCR PANEL NOT DETECTED; INFLUENZA B - RESP PCR PANEL NOT DETECTED; M. PNEUMONIAE- RESP PCR PANEL NOT DETECTED; PARAINFLUENZA VIRUS 1 NOT DETECTED; PARAINFLUENZA VIRUS 2 NOT DETECTED; PARAINFLUENZA VIRUS 3 NOT DETECTED; PARAINFLUENZA VIRUS 4 NOT DETECTED; RHINOVIRUS/ENTEROVIRUS NOT DETECTED; RSV- RESP PCR PANEL NOT DETECTED; SARS-CoV-2 -RESP PCR PANEL NOT DETECTED
[2021-01-29] MEDS ORDERED: IOPAMIDOL-300 50 ML VIAL PO ONE (00:03)
== END 2021-01-28 23:02 | disposition short-term general hospital (02) ==
LOC: ED 19:33
DX: O99.891 Other specified diseases and conditions complicating pregnancy (principal); R10.9 Unspecified abdominal pain; R11.0 Nausea; D72.829 Elevated white blood cell count, unspecified; Z3A.15 15 weeks gestation of pregnancy; Z20.822 Contact with and (suspected) exposure to COVID-19
CPT/HCPCS: 0202U; 36415; 76705; 80053; 81001; 81025; 83690; 85025; 96365; 99284; 99285; A9270; 81003; 87086

== ENCOUNTER 2021-01-28 22:59 | Outpatient (CLI) | payer MEDICAID | END 2021-01-28 23:00 | disposition short-term general hospital (02) | LOC: EMS 22:59 | PROVIDERS: ATTEND Emergency Medicine | DX: O99.891 Other specified diseases and conditions complicating pregnancy (principal); R10.31 Right lower quadrant pain; Z3A.00 Weeks of gestation of pregnancy not specified | CPT/HCPCS: A0425; A0426 ==

== ENCOUNTER 2021-02-09 21:34 | Emergency (ER) | payer MEDICAID ==
[2021-02-09] MEDS ORDERED: FLUCONAZOLE 100 MG TABLET PO STA (23:04)
--- NOTE | 2021-02-09 23:44 | ED Physician Documentation ---
PD HPI FEMALE - Stated complaint Stated Complaint: FEMALE - Chief complaint Chief Complaint: Abd Pain - History obtained from History obtained from: Patient - Additional information Additional information: Patient comes emergency department chief complaint of "I am raw and sore between my vagina and my anus. Patient states that she began to feel as though she may have a yeast infection a couple of days ago and started taking Monistat. She has taken her third dose of Monistat and does not feel that the raw areas are getting better. Patient does have a history of genital herpes and is concerned that whether she may be having an outbreak. She is 17 weeks , and denies any vaginal bleeding. No contractions or pain in her abdomen. No other complaints at this time. She is sexually monogamous with her . Patient does note incidentally that she just underwent laparoscopic appendectomy A couple of weeks ago. Review of Systems Ten Systems: 10 systems reviewed and negative Constitutional: reports: Reviewed and negative Eyes: reports: Reviewed and negative Ears: reports: Reviewed and negative Nose: reports: Reviewed and negative Throat: reports: Reviewed and negative Cardiac: reports: Reviewed and negative Respiratory: reports: Reviewed and negative GI: reports: Reviewed and negative : reports: Other (Sores, perineal area) Skin: reports: Reviewed and negative Musculoskeletal: reports: Reviewed and negative Neurologic: reports: Reviewed and negative Psychiatric: reports: Reviewed and negative Endocrine: reports: Reviewed and negative Immunocompromised: reports: Reviewed and negative PD PAST MEDICAL HISTORY - Past Medical History Past Medical History: Yes Cardiovascular: None Respiratory: Asthma Endocrine/Autoimmune: None GI: GERD 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: Ovarian cysts : None HEENT: None Psych: None Musculoskeletal: None Derm: None - Past Surgical History Past Surgical History: Yes General: Appendectomy Ortho: Other HEENT: Tonsil/Adenoidectomy - Present Medications Home Medications: Ambulatory Orders Medication Instructions Recorded Confirmed Pnv No.95/Ferrous Fum/Folic AC 1 tab ORAL DAILY 10/02/20 01/28/21 [ Tablet] metroNIDAZOLE [Flagyl] 500 mg PO BID 01/28/21 01/28/21 Acyclovir 400 mg PO 5XD #35 tablet 02/09/21 - Allergies Allergies/Adverse Reactions: Allergies Allergy/AdvReac Type Severity Reaction Status Date / Time hydrocodone bitartrate * Allergy Mild Emesis Verified 02/09/21 21:48 [From Vicodin] - Social History Does the pt smoke?: No Smoking Status: Never smoker Does the pt drink ETOH?: No Does the pt have substance abuse?: No - Immunizations Immunizations are current?: Yes - POLST Patient has POLST: No PD ED PE NORMAL - Vitals Vital signs reviewed: Yes - General General: Alert and oriented X 3, No acute distress - HEENT HEENT: Atraumatic, PERRL, EOMI, Moist mucous membranes - Neck Neck: Supple, no meningeal sign - Respiratory Respiratory: No respiratory distress - Abdomen Abdomen: Soft, Non distended, Other (Mild tenderness around surgical incision sites. Incisions are clean dry and intact.) - Female Female : Other (Skin breakdown noted in small areas in creases and between vulva. No distinct ulcerations.) - Derm Derm: Normal color, Warm and dry, No rash - Extremities Extremities: No deformity, No edema - Neuro Neuro: Alert and oriented X 3, Other (Grossly intact) - Psych Psych: Normal mood, Normal affect Results - Vitals Vitals: Vital Signs - 24 hr 02/09/21 02/09/21 21:48 23:51 Temperature 36.8 C 36.6 C Heart Rate 90 64 Respiratory 16 18 Rate Blood Pressure 145/73 H 134/82 H O2 Saturation 97 98 Oxygen O2 Source Room air PD MEDICAL DECISION MAKING - ED course Complexity details: considered differential, d/w patient ED course: I discussed with the patient that she may continue to use the Monistat and I have also given her an oral dose of Diflucan here. I recommended a barrier cream or ointment such as Desitin, bag balm, or Vaseline/A&D ointment. We have discussed that the patient does not notice any improvement after the next several days, she should follow-up with her primary care physician. Departure - Departure Disposition: 01 Home, Self Care Clinical Impression: Vaginal candidiasis Condition: Stable Instructions: ED Vaginal Infec Fungal Magalys Prescriptions: Acyclovir 400 mg PO 5XD #35 tablet Comments: You appear to have raw areas where the skin has broken down between your vaginal and anal openings. For the most part, these do not appear to be consistent with herpes ulcers. However, if between the oral dose of anti-yeast medicine we gave you today and the miconazole, you do not notice any improvement over the next 3 days, you should get the prescription filled for the acyclovir and begin taking it. You should also do this if you feel like your raw areas are becoming more extensive. Please try to add to avoid rubbing or scratching at the areas. You may use cornstarch, Bag [place], Desitin, or any other sick, barrier type cream or ointment. It is best to use something that does not have any perfume in it. Please follow-up with your doctor if you are not feeling better by the end of the weekend. Discharge Date/Time: 02/09/21 23:53
[2021-02-09 23:52] VITALS: BP 134/82
== END 2021-02-09 23:53 | disposition home or self-care (01) ==
LOC: ED 21:34
DX: O23.592 Infection of other part of genital tract in pregnancy, second trimester (principal); Z3A.17 17 weeks gestation of pregnancy
CPT/HCPCS: 99283; 99284; A9270

== ENCOUNTER 2021-02-13 12:04 | Emergency (ER) | payer MEDICAID ==
[2021-02-13 13:02] VITALS: BP 129/68
--- NOTE | 2021-02-13 13:39 | ED Physician Documentation ---
PD HPI ABD PAIN - Stated complaint Stated Complaint: PELVIC PRESSURE - Chief complaint Chief Complaint: Abd Pain - History obtained from History obtained from: Patient - Additional information Additional information: G3 at about 18 or 19 weeks who had appendectomy 2 weeks ago. For the last 3 days she has not felt movement. She also has some clearish discharge and feels like her cervix is hurting. No cramping or bleeding. No contractions. Review of Systems Ten Systems: 10 systems reviewed and negative Constitutional: reports: Reviewed and negative Eyes: reports: Reviewed and negative Ears: reports: Reviewed and negative Nose: reports: Reviewed and negative Throat: reports: Reviewed and negative PD PAST MEDICAL HISTORY - Past Medical History Cardiovascular: None Respiratory: Asthma Endocrine/Autoimmune: None GI: GERD STATISTICIAN THEORETICAL: Ovarian cysts : None HEENT: None Psych: None Musculoskeletal: None Derm: None - Past Surgical History Past Surgical History: Yes General: Appendectomy Ortho: Other HEENT: Tonsil/Adenoidectomy - Present Medications Home Medications: Ambulatory Orders Medication Instructions Recorded Confirmed Pnv No.95/Ferrous Fum/Folic AC 1 tab ORAL DAILY 10/02/20 01/28/21 [ Tablet] metroNIDAZOLE [Flagyl] 500 mg PO BID 01/28/21 01/28/21 Acyclovir 400 mg PO 5XD #35 tablet 02/09/21 Fluconazole [Diflucan] 150 mg PO ONCE PRN #1 tablet 02/13/21 - Allergies Allergies/Adverse Reactions: Allergies Allergy/AdvReac Type Severity Reaction Status Date / Time hydrocodone bitartrate * Allergy Mild Emesis Verified 02/13/21 13:02 [From Vicodin] - Social History Does the pt smoke?: No Smoking Status: Never smoker Does the pt drink ETOH?: No Does the pt have substance abuse?: No - Immunizations Immunizations are current?: Yes - POLST Patient has POLST: No PD ED PE NORMAL - Vitals Vital signs reviewed: Yes - General General: Alert and oriented X 3, No acute distress - Abdomen Abdomen: Normal bowel sounds, Soft, Non tender, Other (Side ultrasound demonstrates single live intrauterine with positive motion and heart rate of about 150.) - Female Female : Other (Exam done with Umm ALBARRAN present and chaperoning. Quite a bit of creamy white discharge in the cervix is inflamed without any cervical dilatation and it is long.) - Back Back: No CVA TTP, No spinal TTP - Derm Derm: Normal color, Warm and dry - Extremities Extremities: No edema, No calf tenderness / cord - Neuro Neuro: Alert and oriented X 3, Normal speech Results - Vitals Vitals: Vital Signs - 24 hr 02/13/21 12:58 Temperature 36.4 C L Heart Rate 69 Respiratory 16 Rate Blood Pressure 129/68 O2 Saturation 99 Oxygen O2 Source Room air - Labs Labs: Microbiology 02/13/21 13:58 Wet Prep - Final Cervix Laboratory Tests 02/13/21 02/13/21 13:58 13:58 Urine Color YELLOW Urine Clarity HAZY Urine pH 7.0 Ur Specific [place] 1.020 Urine Protein NEGATIVE Urine Glucose (UA) NEGATIVE Urine Ketones NEGATIVE Urine Occult Blood TRACE-INTA Urine Nitrite NEGATIVE Urine Bilirubin NEGATIVE Urine Urobilinogen 0.2 (NORMAL) Ur Leukocyte Esterase TRACE H Urine RBC 0-5 Urine WBC 4-5 Ur Squamous Epith Cells MANY Squamous H Urine Bacteria Few Ur Microscopic Review INDICATED Urine Culture Comments NOT INDICATED C. glabrata (PCR) NEGATIVE C. krusei (PCR) NEGATIVE Magalys species DNA POSITIVE A T. vaginalis (PCR) NEGATIVE Bact Vaginosis (PCR) NEGATIVE Departure - Departure Disposition: 01 Home, Self Care Clinical Impression: Magalys vaginitis Qualifiers: Weeks of gestation: 18 weeks Qualified Code(s): Z3A.18 - 18 weeks gestation of Vaginitis Qualifiers: Chronicity: acute Qualified Code(s): N76.0 - Acute vaginitis Condition: Good Record reviewed to determine appropriate education?: Yes Instructions: ED Preg Established Normal Sxs Prescriptions: Fluconazole [Diflucan] 150 mg PO ONCE PRN #1 tablet PRN Reason: yeast infection Comments: If any of the upcoming tests are positive we will call you. Return for new or worsening symptoms. Follow-up with OB per routine. Discharge Date/Time: 02/13/21 15:41
[2021-02-13 14:09] LABS: BILIRUBIN,URINE NEGATIVE (NEGATIVE); GLUCOSE, URINE (UA) NEGATIVE (NEGATIVE); KETONES,URINE (UA) NEGATIVE (NEGATIVE); LEUKOCYTE ESTERASE, URINE TRACE (NEGATIVE); NITRITE,URINE NEGATIVE (NEGATIVE); OCCULT BLOOD,URINE TRACE-INTA (NEGATIVE); PROTEIN,URINE NEGATIVE (NEGATIVE); UROBILINOGEN,URINE 0.2 (NORMAL) E.U./dL (NORMAL)
[2021-02-13 14:22] LABS: CLARITY,URINE HAZY (CLEAR)
[2021-02-13 14:23] LABS: RBC,URINE 0-5 /HPF (0-5)
[2021-02-13 14:24] LABS: BACTERIA,URINE Few /HPF (None Seen); SQUAMOUS EPITHELIAL CELL,UR MANY Squamous (<= Few)
[2021-02-13 17:02] LABS: BACTERIAL VAGINOSIS DNA NEGATIVE (NEGATIVE); CANDIDA GLABRATA DNA NEGATIVE (NEGATIVE); CANDIDA GROUP DNA POSITIVE (NEGATIVE); CANDIDA KRUSEI DNA NEGATIVE (NEGATIVE); TRICHOMONAS VAGINALIS DNA NEGATIVE (NEGATIVE)
== END 2021-02-13 15:41 | disposition home or self-care (01) ==
LOC: ED 12:04
DX: O23.592 Infection of other part of genital tract in pregnancy, second trimester (principal); Z3A.18 18 weeks gestation of pregnancy
CPT/HCPCS: 81001; 81003; 87086; 87210; 87491; 87591; 87661; 87801; 99283; 99284

== ENCOUNTER 2021-02-28 17:04 | Outpatient (CLI) | payer MEDICAID ==
--- NOTE | 2021-03-01 09:46 | Ultrasound Report ---
PROCEDURE: OB Detailed Eval INDICATIONS: SUPERVISION OF HIGH RISK OUTSIDE/PRIOR DATING DATA: Last menstrual period (LMP): Given on the requisition as 10/09/2020 LMP-based estimated date of delivery (TANIA): Given on the requisition as 07/16/2021. First dating scan (date and location): 12/20/2020. Estimated date of delivery (TANIA) from first dating scan: 07/15/2021. The below data below was generated using the ultrasound TANIA of 07/15/2021 TECHNIQUE: Real-time scanning was performed of the fetus, with image documentation and biometric measurements. COMPARISON: 12/20/2020, 11/18/2020 FINDINGS: General: A single live intrauterine gestation is present. Presentation: Breech Placenta: Placental position is posterior, without previa. Amniotic fluid index: 13.4 cm, within normal limits for gestational age. heart rate: 141 beats per minute. Maternal cervical canal: 3.9 cm long; normal length is 2.5 cm or more. biometrics: Biparietal diameter: 4.5 cm equals 19 weeks 4 days Head circumference: 18 cm equals 20 weeks 3 days Abdominal circumference: 16.3 cm equals 21 weeks 2 days Femur length: 3.1 cm equals 19 weeks 5 days Estimated gestational age from initial scan: 20 weeks 3 days Composite gestational age from present scan: 20 weeks 2 days Estimated weight and percentile: 361 g, 51st percentile Measurement variability in biometric dating: +/- 10 days from 12-20 weeks gestation, +/- 2 weeks from 20-30 weeks gestation, +/- 3 weeks at 30 weeks gestation or later. Anatomic survey: Neuro: Ventricles are normal at less than 10 mm. Cisterna magna is normal at 3-11 mm. Cerebellum i s normal in size and morphology. Nuchal skin fold: Normal at less than 6 mm between 14 and 20 weeks gestational age. Face: Nose and lips, facial profile are normal. Spine: Not well seen, although no abnormality is identified. Heart: 4-chambered heart is present, with normal ventricular outflow tracts. Diaphragm: Diaphragm is intact. Stomach: Left-sided stomach is present. Kidneys: No abnormality is seen, although the kidneys are not well seen. Cord: 3 vessel cord has orthotopic insertion. Bladder: Normal in size. Extremities: All 4 extremities are visualized. IMPRESSION: Single live intrauterine . Normal interval growth compared to the prior ultrasound examination. No anatomic abnormalities are identified. However, the spine and the kidneys are not well seen. Reviewed by: Rei Hinson MD on 03/01/2021 8:45 AM IVELISSE Approved by: Rei Hinson MD on 03/01/2021 8:45 AM IVELISSE Station ID: [id number]
== END 2021-02-28 17:05 | disposition home or self-care (01) ==
LOC: DI 17:04
PROVIDERS: ATTEND Obstetrics & Gynecology
DX: O09.92 Supervision of high risk pregnancy, unspecified, second trimester (principal); Z3A.20 20 weeks gestation of pregnancy

== ENCOUNTER 2021-03-28 18:38 | Outpatient (CLI) | payer MEDICAID ==
--- NOTE | 2021-03-29 12:57 | Ultrasound Report ---
PROCEDURE: OB F/U or Repeat INDICATIONS: SUPERVISION OF HIGH RISK OUTSIDE/PRIOR DATING DATA: Last menstrual period (LMP): Unknown. LMP-based estimated date of delivery (TANIA): Unknown. First dating scan (date and location): 12/20/2020. Estimated date of delivery (TANIA) from first dating scan: 07/15/2021. TECHNIQUE: Real-time scanning was performed of the fetus, with image documentation and biometric measurements. COMPARISON: 02/28/2021, 12/20/2020. FINDINGS: General: A single living intrauterine gestation is present. Presentation: Vertex Placenta: Placental position is posterior, without previa. Amniotic fluid index: 16.5 cm, normal for gestational age. heart rate: 143 beats per minute. Maternal cervical canal: Cervix is closed and visually appears normal in length. Estimated gestational age from initial scan: 24 weeks, 3 days. Other: spine is visualized and is within normal limits. chest, stomach, bilateral kidneys and urinary bladder are visualized and are within normal limits. IMPRESSION: 1. Single live intrauterine with fetus in vertex presentation. heart rate is 143 bpm. Normal amount of amniotic fluid with RASHMI equals 16.5 cm. 2. spine and bilateral kidneys are visualized on the current study and are within normal limits . Reviewed by: Rosales Salomon MD on 03/29/2021 12:55 PM PDT Approved by: Rosales Salomon MD on 03/29/2021 12:55 PM PDT Station ID: [id number]
== END 2021-03-28 18:39 | disposition home or self-care (01) ==
LOC: DI 18:38
PROVIDERS: ATTEND Obstetrics & Gynecology
DX: O09.92 Supervision of high risk pregnancy, unspecified, second trimester (principal); Z3A.24 24 weeks gestation of pregnancy

== ENCOUNTER 2021-05-03 13:11 | Outpatient (CLI) | payer MEDICAID | END 2021-05-03 13:12 | disposition home or self-care (01) | LOC: LAB 13:11 | PROVIDERS: ATTEND Obstetrics & Gynecology | DX: O09.90 Supervision of high risk pregnancy, unspecified, unspecified trimester (principal) | CPT/HCPCS: 82950; 85027 ==

== ENCOUNTER 2021-06-01 01:07 | Outpatient (CLI) | payer MEDICAID ==
[2021-06-01] MEDS ORDERED: ACETAMINOPHEN 325 MG TABLET PO ONE (01:35)
[2021-06-01 02:09] LABS: BILIRUBIN,URINE NEGATIVE (NEGATIVE); GLUCOSE, URINE (UA) NEGATIVE (NEGATIVE); KETONES,URINE (UA) NEGATIVE (NEGATIVE); LEUKOCYTE ESTERASE, URINE NEGATIVE (NEGATIVE); NITRITE,URINE NEGATIVE (NEGATIVE); OCCULT BLOOD,URINE NEGATIVE (NEGATIVE); PH,URINE 6.5 PH (5.0-7.5); PROTEIN,URINE NEGATIVE (NEGATIVE); UROBILINOGEN,URINE 0.2 (NORMAL) E.U./dL (NORMAL)
[2021-06-01 02:11] LABS: CLARITY,URINE CLEAR (CLEAR)
[2021-06-01 02:15] LABS: RBC,URINE 0-5 /HPF (0-5); WBC,URINE 0-3 /HPF (0-5)
[2021-06-01 02:16] LABS: BACTERIA,URINE Few /HPF (None Seen); SQUAMOUS EPITHELIAL CELL,UR MOD Squamous (<= Few)
--- NOTE | 2021-06-01 03:15 | PROVIDER PROGRESS NOTE ---
- HPI Chief Complaint: Other (Patient presents with complaints of pelvic cramping and vaginal pressure which started approximately 10 PM last night. She denies leakage of fluid or vaginal bleeding. She denies contractions. She reports her pain is constant. There are no alleviating factors. There are no aggravating factors.) Current : Current EDU 07/16/21 Gestation 33 Weeks and 4 Days 3 Para 1 Vital Signs Temperature 98.1 F 06/01/21 01:18 Heart Rate 76 06/01/21 01:18 Respiratory Rate 18 06/01/21 01:18 Blood Pressure 123/71 06/01/21 01:18 O2 Saturation 99 06/01/21 01:18 Temperature 98.1 F 06/01/21 01:18 Heart Rate 76 06/01/21 01:18 Respiratory Rate 18 06/01/21 01:18 Blood Pressure 123/71 06/01/21 01:18 O2 Saturation 99 06/01/21 01:18 - Exam General- no acute distress Abdomen- soft nontender, gravid. Healed laparoscopic incisions noted. Sterile speculum exam. Cervix visibly closed. Physiologic appearing discharge. No vaginal bleeding noted. - Procedures OB Procedure Performed: NST Diagnosis/Indication for NST: Other (pelvic pain) Service Date of procedure: 06/01/21 Findings: heart rate Baseline 130 bpm Accelerations -15 x 15 Decelerations -none Moderate variability No contractions on toco. - Plan Plan: 25-year-old Ab1 at 33 weeks 5 days who presents with complaints of pelvic cramping and vaginal pressure. Pelvic crampingabdomen soft and nontender, sterile speculum exam with cervix visibly closed no bleeding noted. Urinalysis negative STD screen results. WWet prep and gonorrhea and chlamydia sent. External monitor reactive and reassuring no contractions noted. Patient desires discharge prior to return of labs. Will follow up wet prep and urine analysis STD screen.
[2021-06-01 04:00] VITALS: BP 120/71
[2021-06-01 05:28] LABS: BACTERIAL VAGINOSIS DNA NEGATIVE (NEGATIVE); CANDIDA GLABRATA DNA NEGATIVE (NEGATIVE); CANDIDA GROUP DNA NEGATIVE (NEGATIVE); CANDIDA KRUSEI DNA NEGATIVE (NEGATIVE); TRICHOMONAS VAGINALIS DNA NEGATIVE (NEGATIVE)
[2021-06-01 07:04] LABS: CHLAMYDIA TRACHOMATIS DNA NEGATIVE (NEGATIVE); NEISSERIA GONORRHOEAE DNA NEGATIVE (NEGATIVE); TRICHOMONAS VAGINALIS DNA NEGATIVE (NEGATIVE)
== END 2021-06-01 03:10 | disposition home or self-care (01) ==
LOC: FBP 01:07 → WFO 01:07
PROVIDERS: ATTEND Obstetrics & Gynecology
DX: O99.891 Other specified diseases and conditions complicating pregnancy (principal); R10.2 Pelvic and perineal pain; Z3A.33 33 weeks gestation of pregnancy
CPT/HCPCS: 81001; 87086; 87210; 87491; 87591; 87661; 87801; 99214

== ENCOUNTER 2021-06-06 13:23 | Outpatient (CLI) | payer MEDICAID ==
[2021-06-06 14:46] LABS: HCT - HEMATOCRIT 35.3 % (37.0-47.0); HGB - HEMOGLOBIN 11.8 g/dL (12.0-16.0); MEAN CORPUSCULAR HEMOGLOBIN 30.6 pg (27.0-31.0); MEAN CORPUSCULAR HGB CONC 33.4 g/dL (32.0-36.0); MEAN CORPUSCULAR VOLUME 91.7 fL (81.0-99.0); MEAN PLATELET VOLUME 9.6 fL (7.9-10.8); RED BLOOD COUNT 3.85 10^6/uL (4.20-5.40); RED CELL DISTRIBUTION WIDTH 12.4 % (12.0-15.0); WHITE BLOOD COUNT 12.2 x10^3/uL (4.8-10.8)
== END 2021-06-06 13:24 | disposition home or self-care (01) ==
LOC: LAB 13:23
PROVIDERS: ATTEND Obstetrics & Gynecology
DX: O09.90 Supervision of high risk pregnancy, unspecified, unspecified trimester (principal); Z36.89 Encounter for other specified antenatal screening
CPT/HCPCS: 36415; 82950; 85027

== ENCOUNTER 2021-06-16 15:50 | Outpatient (CLI) | payer MEDICAID ==
[2021-06-16 16:30] LABS: BASOPHILS % (AUTO) 0.2 %; EOSINOPHILS # (AUTO) 0.1 10^3/uL (0.0-0.7); EOSINOPHILS % (AUTO) 0.7 %; HGB - HEMOGLOBIN 11.9 g/dL (12.0-16.0); LYMPHOCYTES # (AUTO) 3.5 10^3/uL (1.5-3.5); LYMPHOCYTES % (AUTO) 26.7 %; MEAN CORPUSCULAR HEMOGLOBIN 29.2 pg (27.0-31.0); MEAN CORPUSCULAR HGB CONC 33.1 g/dL (32.0-36.0); MEAN CORPUSCULAR VOLUME 88.5 fL (81.0-99.0); MEAN PLATELET VOLUME 9.9 fL (7.9-10.8); MONOCYTES # (AUTO) 0.8 10^3/uL (0.0-1.0); MONOCYTES % (AUTO) 5.8 %; NEUTROPHILS # (AUTO) 8.6 10^3/uL (1.5-6.6); NEUTROPHILS % (AUTO) 66.2 %; PLT - PLATELET COUNT 316 10^3/uL (130-450); RED BLOOD COUNT 4.07 10^6/uL (4.20-5.40); RED CELL DISTRIBUTION WIDTH 12.4 % (12.0-15.0)
[2021-06-16 16:39] LABS: URIC ACID 5.3 mg/dL (2.6-7.2)
[2021-06-16 16:55] LABS: ALBUMIN 3.1 g/dL (3.2-5.5); ALBUMIN/GLOBULIN RATIO 0.9 (1.0-2.2); BILIRUBIN,TOTAL 0.6 mg/dL (0.2-1.0); CREATININE 0.5 mg/dL (0.4-1.0); POTASSIUM 3.8 mmol/L (3.5-5.0); TOTAL PROTEIN 6.7 g/dL (6.7-8.2)
[2021-06-16 16:55] LABS: CREATININE,URINE 129.8 mg/dL; PROTEIN/CREATININE RATIO,URINE 0.1 (<=0.2)
--- NOTE | 2021-06-16 17:02 | PROVIDER PROGRESS NOTE ---
- HPI Chief Complaint: Headache Current : Vital Signs Temperature 98.7 F 06/16/21 16:05 Heart Rate 84 06/16/21 16:05 Respiratory Rate 16 06/16/21 16:05 Blood Pressure 119/74 06/16/21 16:52 O2 Saturation 100 06/16/21 16:05 - Procedures OB Procedure Performed: NST Findings: Patient is a 25-year-old -0-1-1 at 35 weeks 5 days gestation presenting to triage for headache. She has good movement, no leaking, no vaginal bleeding. She denies right upper quadrant pain or changes in vision. She does have a history of preeclampsia and is worried this may be starting again. She has mostly headache in her sinus region. Started this morning and did not get better with Tylenol at approximately 1300. Past medical history Preeclampsia in previous Past surgical history Ankle surgery Tonsillectomy Family history Maternal grandmother: Lupus Mother: Type 2 diabetes, chronic pancreatitis Maternal grandfather: Colon cancer Maternal aunt: Renal cancer Social history Current everyday smoker. Denies alcohol and drugs Physical Temp Pulse Resp BP Pulse Ox 98.7 F 84 16 119/74 100 06/16/21 16:05 06/16/21 16:05 06/16/21 16:05 06/16/21 16:52 06/16/21 16:05 Constitutional: alert, no acute distress, well hydrated, well developed, well nourished, appropriate dress. Skin: normal turgor, normal color. Head: atraumatic, normocephalic. Cardiovascular: RRR. Respiratory: no respiratory distress. Abdomen: nondistended, nontender. Spine: normal mobility. Neurologic: normal, sensation intact, motor intact. Psych: affect and mood appropriate, normal interaction, good eye contact. Laboratory Last Values WBC 13.0 x10^3/uL (4.8-10.8) H 06/16/21 16:16 RBC 4.07 10^6/uL (4.20-5.40) L 06/16/21 16:16 Hgb 11.9 g/dL (12.0-16.0) L 06/16/21 16:16 Hct 36.0 % (37.0-47.0) L 06/16/21 16:16 MCV 88.5 fL (81.0-99.0) 06/16/21 16:16 MCH 29.2 pg (27.0-31.0) 06/16/21 16:16 MCHC 33.1 g/dL (32.0-36.0) 06/16/21 16:16 RDW 12.4 % (12.0-15.0) 06/16/21 16:16 Plt Count 316 10^3/uL (130-450) 06/16/21 16:16 MPV 9.9 fL (7.9-10.8) 06/16/21 16:16 Neut # (Auto) 8.6 10^3/uL (1.5-6.6) H 06/16/21 16:16 Lymph # (Auto) 3.5 10^3/uL (1.5-3.5) 06/16/21 16:16 [place] # (Auto) 0.8 10^3/uL (0.0-1.0) 06/16/21 16:16 Eos # (Auto) 0.1 10^3/uL (0.0-0.7) 06/16/21 16:16 Baso # (Auto) 0.0 10^3/uL (0.0-0.1) 06/16/21 16:16 Absolute Nucleated RBC 0.00 x10^3/uL 06/16/21 16:16 Nucleated RBC % 0.0 /100WBC 06/16/21 16:16 Sodium 135 mmol/L (135-145) 06/16/21 16:16 Potassium 3.8 mmol/L (3.5-5.0) 06/16/21 16:16 Chloride 103 mmol/L (101-111) 06/16/21 16:16 Carbon Dioxide 21 mmol/L (21-32) 06/16/21 16:16 Anion Gap 11.0 (6-13) 06/16/21 16:16 BUN 12 mg/dL (6-20) 06/16/21 16:16 Creatinine 0.5 mg/dL (0.4-1.0) 06/16/21 16:16 Estimated GFR (MDRD) 152 (>89) 06/16/21 16:16 Glucose 70 mg/dL (70-100) 06/16/21 16:16 Uric Acid 5.3 mg/dL (2.6-7.2) 06/16/21 16:16 Calcium 9.0 mg/dL (8.5-10.3) 06/16/21 16:16 Total Bilirubin 0.6 mg/dL (0.2-1.0) 06/16/21 16:16 AST 16 IU/L (10-42) 06/16/21 16:16 ALT 12 IU/L (10-60) 06/16/21 16:16 Protein/Creatinine Ratio 0.1 (<=0.2) 06/16/21 16:00 Assessment and plan 25-year-old -0-1-1 at 35 weeks 5 days gestation with headache 1. Headache -Did take 1 dose of Tylenol earlier today, but did not resolve. Only took 500mg. Discussed she can take two every 6 hours for a headache. Offered here, but patient would like to go home for tylenol and res. -AST, ALT, platelets, protein creatinine ratio within normal limits. Patient very reassured. -Blood pressure not concerning for preeclampsia. -Discussed headache management and control with Tylenol. Return if symptoms worsen. 2. 35 weeks gestation -reactive NST -Follow-up in clinic on 06/21 for routine care.
[2021-06-16 17:44] VITALS: BP 115/78
== END 2021-06-16 17:30 | disposition home or self-care (01) ==
LOC: WFO 15:50 → FBP 15:52 → WFO 17:30
PROVIDERS: ATTEND Obstetrics & Gynecology
DX: O99.891 Other specified diseases and conditions complicating pregnancy (principal); R51.9 Headache, unspecified; O09.893 Supervision of other high risk pregnancies, third trimester; Z3A.35 35 weeks gestation of pregnancy
CPT/HCPCS: 36415; 59025; 80053; 82570; 83615; 84156; 84450; 84550; 85025; 99214

== ENCOUNTER 2021-06-21 08:00 | Outpatient (CLI) | payer MEDICAID | END 2021-06-21 23:59 | LOC: LAB 08:00 | PROVIDERS: ATTEND Obstetrics & Gynecology | DX: Z36.85 Encounter for antenatal screening for Streptococcus B (principal) | CPT/HCPCS: 87797 ==

== ENCOUNTER 2021-07-07 02:42 | Inpatient (IN) | payer MEDICAID ==
[2021-07-07] MEDS ORDERED: METHYLERGONOVINE 0.2 MG/ML VIAL IM PRN (03:10)
[2021-07-07] MEDS ORDERED: AMPICILLIN 2 GM in SODIUM CHLORIDE 0.9% MINIBAG 100 ML IV STA (03:10)
[2021-07-07] MEDS ORDERED: SODIUM CHLORIDE FLUSH 0.9% 10 ML SYRINGE IVP PRN (03:10)
[2021-07-07] MEDS ORDERED: TRANEXAMIC ACID IN NACL 1,000 MG/100 ML BAG IV PRN (03:10)
[2021-07-07] MEDS ORDERED: AMPICILLIN 2 GM in SODIUM CHLORIDE 0.9% MINIBAG 100 ML IV ONE (03:10)
[2021-07-07] MEDS ORDERED: OXYTOCIN 10 UNIT/ML VIAL IM PRN (03:10)
[2021-07-07] MEDS ORDERED: CARBOPROST TROMETHAMINE 250 MCG/ML AMP IM PRN (03:10)
[2021-07-07] MEDS ORDERED: LACTATED RINGERS 500 ML IV ONE (03:10)
[2021-07-07] MEDS ORDERED: OXYTOCIN/SODIUM CHLORIDE 500 ML IV PRN (03:10)
[2021-07-07] MEDS ORDERED: miSOPROStoL 200 MCG TABLET PR ONE (03:10)
[2021-07-07] MEDS ORDERED: TERBUTALINE 1 MG/ML VIAL SUBQ PRN (03:10)
[2021-07-07] MEDS ORDERED: LIDOCAINE-MPF 1% 30 ML VIAL ID PRN (03:10)
[2021-07-07] MEDS ORDERED: fentaNYL 100 MCG/2 ML VIAL IVP PRN (03:10)
[2021-07-07] MEDS ORDERED: miSOPROStoL 200 MCG TABLET BC ONE (03:10)
[2021-07-07 03:16] LABS: RUPTURE OF MEMBRANES PLUS POSITIVE (NEGATIVE)
[2021-07-07] MEDS ORDERED: AMPICILLIN 2 GM VIAL IV ONE (03:24)
--- NOTE | 2021-07-07 03:31 | HISTORY & PHYSICAL EXAMINATION ---
History and Physical - History and Physical Thank you HPI: 25 old -0-1-1 at 38 weeks 5 days gestation by LMP consistent with 10-week ultrasound presenting today for labor. Approximately at 220 she had rupture of membranes at home and contractions started, now occurring every few minutes. She has not timing these. She has good movement. She does have a history of preeclampsia last , but her blood pressure today is unremarkable. No COLLAZO/BV or RUQP. No vaginal bleeding. Denies nausea and vomiting. Denies urin dora urgency or dysuria. All other symptoms reviewed and were negative except per HPI. Course LMP: 10/09/2020 TANIA by LMP:07/16/2021 Initial U/S: @10.3 wks gestation c/w LMP dating +ca 167bpm, TANIA 07-16-2021 by LMP FINAL TANIA: 07/16/2021 -Status post laparoscopic appendectomy on 01/29/2021. TOBACCO: -Doing well with nicotine replacement History of preeclampsia in prior : Took aspirin 81 mg daily throughout this . VIT D deficiency: ordered Vit D with QUAD O pos/Rubella VZV: imm Genetic testing: Desires QUAD- ordered but did not complete despite educational guidance counselor last visit FAS: FAS incomplete, 3VC, EFW 51%ile, posterior, 3VC Follow-up WNL Glucola 130 Influenza: 04/26 TDAP 04/26 Covid: declined GBS 06/21/2021 POSITIVE HSV: positive- taking valacyclovir Breast pump Rx 04/26 MOD: anticipate . Desires IOL. scheduled with L&D for 07/09/21 PMH Preeclampsia PSH appendectomy 2020 Ankle surgery 2006 Tonsillectomy 1988 OB History -0-1-1 1. 10/24/2018, 37 weeks, , preeclampsia with severe features 2. 07/2020 spontaneous SH Previous smoker, currently on tobacco replacement therapy Denies alcohol or tobacco. Family History Mother: Type 2 diabetes,, pancreatitis Maternal grandmother: Lupus Maternal grandfather: Colon cancer Maternal aunt: Renal cancer Allergies Vicodin: Vomiting Medications Valacyclovir daily for suppression Ferrous sulfate Nicotine patch Sertraline 50 mg Aspirin 81 mg Physical exam: Blood pressure 129/77, pulse 91, O2 99 General: Alert, oriented, no acute distress Head: Normal cephalic atraumatic Eyes: PERRLA, extraocular motions intact. Respiratory: Normal rate of respiration. No accessory muscle use, normal respiratory effort. Cardiovascular: Regular rate and rhythm Abdomen: Gravid, nontender, nondistended Extremities: Normal range of motion Neuro: Oriented x3. Normal movements Psych: Appropriate mood and affect. Normal judgment and insight [place] positive. SVE: 4/50/-3 FHT: 135 beats per baseline, moderate variability, accelerations present, no decelerations. [place]: 3 to 4 minutes Plan 25-year-old -0-1-1 at 38 weeks 5 days gestation in term labor with spontaneous rupture of membranes 1. Spontaneous rupture of membranes -Admit to L&D, admit labs, epidural at patient's request, start ampicillin, anticipate -ROM plus positive 2. 38 weeks gestation 3. Term labor 4. History of preeclampsia -Taking aspirin this . No symptoms of preeclampsia this . -Blood pressure today within normal limits. 5. Vulvovaginal HSV vulvovaginal herpes simplex virus -Has been on acyclovir for suppression since 36 weeks. -No lesions or prodromal symptoms 6. GBS positive -Ampicillin for GBS sepsis prophylaxis
[2021-07-07] MEDS ORDERED: ROPIVACAINE 0.2% 200 MG/100 ML BAG EP ONE (03:32)
[2021-07-07 04:00] LABS: BASOPHILS % (AUTO) 0.3 %; EOSINOPHILS # (AUTO) 0.1 10^3/uL (0.0-0.7); EOSINOPHILS % (AUTO) 0.6 %; HCT - HEMATOCRIT 36.7 % (37.0-47.0); LYMPHOCYTES # (AUTO) 4.4 10^3/uL (1.5-3.5); LYMPHOCYTES % (AUTO) 35.4 %; MEAN CORPUSCULAR HEMOGLOBIN 28.8 pg (27.0-31.0); MEAN CORPUSCULAR HGB CONC 32.7 g/dL (32.0-36.0); MEAN PLATELET VOLUME 10.4 fL (7.9-10.8); MONOCYTES # (AUTO) 0.9 10^3/uL (0.0-1.0); MONOCYTES % (AUTO) 6.9 %; NEUTROPHILS # (AUTO) 7.1 10^3/uL (1.5-6.6); NEUTROPHILS % (AUTO) 56.5 %; PLT - PLATELET COUNT 315 10^3/uL (130-450); RED BLOOD COUNT 4.17 10^6/uL (4.20-5.40); RED CELL DISTRIBUTION WIDTH 12.6 % (12.0-15.0); WHITE BLOOD COUNT 12.5 x10^3/uL (4.8-10.8)
[2021-07-07] MEDS ORDERED: SODIUM CHLORIDE FLUSH 0.9% 10 ML SYRINGE IVP SCH (04:00)
[2021-07-07] MEDS ORDERED: LACTATED RINGERS 1,000 ML IV SCH ×2 (04:00→10:00)
[2021-07-07] MEDS ORDERED: NALBUPHINE 10 MG/ML AMP IVP PRN (04:06)
[2021-07-07] MEDS ORDERED: ONDANSETRON 4 MG/2 ML VIAL IVP PRN ×2 (04:06→04:19)
[2021-07-07] MEDS ORDERED: METOCLOPRAMIDE 10 MG/2 ML VIAL IVP PRN (04:06)
[2021-07-07] MEDS ORDERED: ROPIVACAINE 0.2% 200 MG/100 ML BAG EP PRN (04:06)
[2021-07-07] MEDS ORDERED: diphenhydrAMINE INJ 50 MG/ML VIAL IVP PRN (04:06)
[2021-07-07] MEDS ORDERED: ePHEDrine 50 MG/ML VIAL IVP PRN (04:06)
[2021-07-07] MEDS ORDERED: NALOXONE 0.4 MG/ML VIAL IVP PRN (04:06)
--- NOTE | 2021-07-07 04:06 | ANESTHESIA ---
Pre-Anesthesia VS, & Labs - Diagnosis active labor - Procedure labor epidural Height: 5 ft 7 in - NPO Other (pt "doesn't remember") - Is Patient ?: Yes - Lab Results Current Lab Results: Laboratory Tests 07/07/21 02:55: WBC 12.5 H, RBC 4.17 L, Hgb 12.0, Hct 36.7 L, MCV 88.0, MCH 2 8.8, MCHC 32.7, RDW 12.6, Plt Count 315, MPV 10.4, Neut # (Auto) 7.1 H, Lymph # (Auto) 4.4 H, [place] # (Auto) 0.9, Eos # (Auto) 0.1, Baso # (Auto) 0.0, Absolute Nucleated RBC 0.00, Nucleated RBC % 0.0 Fish Bones: 07/07/21 02:55 Home Medications and Allergies Active Medications Carboprost Tromethamine (Carboprost Tromethamine 250 Mcg/Ml Amp) 250 mcg IM ONCE PRN PRN Reason: Hemorrhage Stop: 07/07/21 23:59 Fentanyl (Fentanyl 100 Mcg/2 Ml Vial) 50 mcg IVP Q1H PRN PRN Reason: Severe Pain (score 7-10) Ampicillin Sodium 2 gm/ Sodium (Chloride) 100 mls @ 100 mls/hr IV ONCE STA Stop: 07/07/21 04:09 Last Admin: 07/07/21 03:21 Dose: 100 mls/hr Documented by: Oxytocin/Sodium Chloride (Pitocin/Sodium Chloride) 500 mls @ 999 mls/hr IV PRN PRN; Protocol PRN Reason: POST- HEMORR PREVENTION Tranexamic Acid (Tranexamic 1,000 Mg/100ml-Nacl) 1,000 mg in 100 mls @ 600 mls/hr IV Q30M PRN PRN Reason: EBL >1200mL and within 3hr Lactated Ringer's (Lr) 1,000 mls @ 125 mls/hr IV .Q8H BETHEL Ampicillin Sodium 1 gm/ Sodium (Chloride) 100 mls @ 200 mls/hr IV Q4H BETHEL Lidocaine HCl (Lidocaine-Mpf 1% 30 Ml Vial) 30 ml ID ONCE PRN PRN Reason: PERINEAL REPAIR Stop: 07/08/21 03:10 Methylergonovine Maleate (Methylergonovine 0.2 Mg/Ml Vial) 0.2 mg IM ONCE PRN PRN Reason: Hemorrhage Stop: 07/07/21 23:59 Oxytocin (Oxytocin 10 Unit/Ml Vial) 10 unit IM ONCE PRN PRN Reason: Step One if no IV access. Stop: 07/07/21 23:59 Sodium Chloride (Sodium Chloride Flush 0.9% 10 Ml Syringe) 10 ml IVP PRN PRN PRN Reason: NEEDED PER PROVIDER ORDERS Sodium Chloride (Sodium Chloride Flush 0.9% 10 Ml Syringe) 10 ml IVP Q8H BETHEL Terbutaline Sulfate (Terbutaline 1 Mg/Ml Vial) 0.25 mg SUBQ ONCE PRN PRN Reason: Tachystole Stop: 07/07/21 23:59 Pnv No.95/Ferrous Fum/Folic AC [ Tablet] 1 tab ORAL DAILY 10/02/20 metroNIDAZOLE [Flagyl] 500 mg PO BID 01/28/21 Allergies/Adverse Reactions: Allergies Allergy/AdvReac Type Severity Reaction Status Date / Time hydrocodone bitartrate * Allergy Mild Emesis Verified 02/13/21 13:02 [From Vicodin] Anes History & Medical History - Anesthetic History Anesthesia Complications: reports: No previous complications Family history of Anesthesia Complications: Denies Family history of Malignant Hyperthermia: Denies - Medical History Cardiovascular: reports: None Pulmonary: reports: Asthma Gastrointestinal: reports: GERD Urinary: reports: None Musculoskeletal: reports: None Endocrine/Autoimmune: reports: None Blood Disorders: reports: None Skin: reports: None Smoking Status: Never smoker - Surgical History General: reports: Appendectomy Eyes Ears Nose Throat (EENT): reports: Tonsil/Adenoidectomy Orthopedic: reports: Other Exam General: Alert, Oriented x3, Moderate distress Dental: WNL Mouth Openin Fingerbreadth Neck Mobility: Normal Mallampati classification: II Thyromental Distance: 4-6 cm Respiratory: Lungs clear Cardiovascular: Regular rate Plan Anesthesia Type: Epidural Consent for Procedure(s) Verified and Reviewed: Yes Code Status: Attempt Resuscitation ASA classification: 2-Mild systemic disease Is this case an emergency?: No
--- NOTE | 2021-07-07 04:08 | ANESTHESIA PROCEDURE NOTE ---
Anesthesia Epidural Template - Patient Report Patient Reports: positive: Pain controlled - Plan Plan: positive: Continue current management
[2021-07-07] MEDS ORDERED: AMPICILLIN 1 GM in SODIUM CHLORIDE 0.9% MINIBAG 100 ML IV SCH (07:00)
[2021-07-07] MEDS ORDERED: SIMETHICONE CHEW 80 MG TABLET PO PRN (09:36)
--- NOTE | 2021-07-07 09:39 | DELIVERY NOTE ---
Delivery Note - Labor Labor: positive: Spontaneous - Delivery Method Delivery Method: positive: Spontaneous vaginal delivery - Presentation Presentation: positive: REMBERTO - right occiput anterior - Nuchal Cord Nuchal Cord: positive: None - Anesthetic Anesthetic Type: - Amniotic Fluid Description Amniotic Fluid Description: positive: Clear - Laceration Laceration: positive: Labial (Right, hemostatic with pressure.) - Delivery Outcome Delivery Outcome: positive: Livebirth - [place]: positive: Placed in direct skin contact with mother, [place] used sex: positive: Male - Cord Cord: positive: 3 vessels - Placenta Placenta: positive: Intact, Spontaneous - Estimated Blood Loss Estimated Blood Loss (in cc): 250 - Post Delivery Events Post Delivery Events: positive: No post delivery events - Delivery Comments (Free Text/Narrative) Delivery Comments (Free Text/Narrative): Preoperative Diagnoses 24-year-old -0-1-1 Term labor Spontaneous rupture membranes Vulvovaginal HSV GBS positive Postoperative Diagnoses Same Delivered Delivery Summary: Patient presented at 38 weeks 5 days gestation complaining of leaking of fluid and contractions. She was grossly ruptured with a positive ROM plus. She was admitted for labor. On arrival she was 4 cm and progressed on her own through the morning. She not require augmentation. She was checked and found to be complete and the delivery team was called. Patient was placed in the dorsal lithotomy position. Upon maternal pushing the head was delivered atraumatically followed by the anterior shoulder, posterior shoulder, then the remainder of the 's body. A male was delivered with APGARS of 8 at 1 minute and 9 at 5 minutes. The was placed on its mother's chest . After the cord finished pulsating, the umbilical cord was clamped times two and cut. The placenta delivered intact with three vessel cord. Placenta was not sent to pathology. Thirty units of Pitocin were added to the IV fluid and allowed to run freely. Uterine massage was performed until uterus was deemed firm. Upon inspection the perineum, vagina and cervix, small areas of oozing were noted on the right labia majora. These were small and became hemostatic with pressure. Upon re-inspection the patient was hemostatic. Uterus again massaged and found to be firm. Needle and sponge counts were correct. Patient was stable and allowed to recover in L&D room. was stable and remained in room with mother. weight is pending at this time.
[2021-07-07] MEDS: IBUPROFEN 600 MG TABLET PO SCH ×2 (12:00→18:16)
[2021-07-07] MEDS: ACETAMINOPHEN 500 MG TABLET PO SCH ×2 (12:00→20:14)
[2021-07-07] MEDS ORDERED: HYDROCORTISONE 1% CREAM 28 GM TUBE TOP PRN (20:47)
[2021-07-08] MEDS: DOCUSATE SODIUM 100 MG CAPSULE PO PRN ×2 (00:14→12:25)
[2021-07-08] MEDS: IBUPROFEN 600 MG TABLET PO SCH ×3 (00:14→12:25)
[2021-07-08] MEDS: ACETAMINOPHEN 500 MG TABLET PO SCH ×2 (04:13→12:25)
[2021-07-08 08:29] VITALS: BP 127/75
--- NOTE | 2021-07-08 12:14 | Discharge Plan ---
Discharge Plan Problem Reviewed?: Yes Disposition: Home, Self Care Condition: Good Diet: Regular Activity Restrictions: Additional Comments Weight Bearing: Partial Weight (No lifting greater than baby in car seat.) Instruction Topics: Vaginal After No Smoking: If you smoke, Please STOP! Call for help.
--- NOTE | 2021-07-08 12:18 | DISCHARGE SUMMARY ---
Discharge Summary Admit Date: 07/07/21 Discharge Date: 07/08/21 Discharging Provider: Kristian Lee MD Primary Care Provider: Lorena Scott MD Code Status: Attempt Resuscitation Condition at Discharge: Good Discharge Disposition: 01 Home, Self Care - DIAGNOSES Admission Diagnoses: Term labor/SROM Discharge Diagnoses with Status of Each Condition: Term Labor/SROM: Delivered - HPI History of Present Illness: Subjective Patient reports she is doing well. Lochia appropriate. Denies heavy bleeding. Ambulating. Pelvic and abdominal pain well-controlled. Tolerating oral intake. Diet: Regular. Voiding without difficulty. Passing flatus. Denies BM. Patient is bonding with baby in room Breast feeding going well. Denies feeling lightheaded, dizzy or excessively fatigued. Objective General: Alert, oriented, no apparent distress. Cardiovascular: Regular rate. Regular rhythm. No murmur. Lungs: Clear to auscultation. Good air movement. No crackles or wheezes Abdomen: Uterus firm. Below umbilicus. Normal active bowel sounds. No guarding or rebound. Extremities: Normal pedal pulses. No edema. No cords. - HOSPITAL COURSE Hospital Course: Patient was a 25-year-old -0-1-1 at 38 weeks 5 days gestation presenting with term labor and spontaneous rupture of membranes. She was 4 cm on admission and had a on augmented delivery. She had uncomplicated spontaneous vaginal delivery with no significant tears. She and baby were doing well in their course and were discharged together on day 1. - ALLERGIES Allergies/Adverse Reactions: Allergies Allergy/AdvReac Type Severity Reaction Status Date / Time hydrocodone bitartrate * Allergy Mild Emesis Verified 02/13/21 13:02 [From Vicodin] - MEDICATIONS Home Medications: Ambulatory Orders Medication Instructions Recorded Confirmed Pnv No.95/Ferrous Fum/Folic AC 1 tab ORAL DAILY 10/02/20 01/28/21 [ Tablet] metroNIDAZOLE [Flagyl] 500 mg PO BID 01/28/21 01/28/21 Acyclovir 400 mg PO 5XD #35 tablet 02/09/21 Fluconazole [Diflucan] 150 mg PO ONCE PRN #1 tablet 02/13/21 Acetaminophen [Acetaminophen Extra 1,000 mg PO Q8H PRN #60 tablet 07/08/21 Strength] Docusate Sodium [Colace Clear] 50 mg PO BID #60 cap 07/08/21 Ibuprofen [Motrin] 600 mg PO Q6H PRN #30 tab 07/08/21 - LABS Result Diagrams: 07/07/21 02:55 - FOLLOW UP Follow Up: Follow-up with Dr. Scott in 1-2 week. - TIME SPENT Time Spent in Discharge (Minutes): 15
--- NOTE | 2021-07-08 13:01 | Labor Flowsheet ---
Labor Flowsheet Datetime Report Generated by CPN: 07/08/2021 13:00 Datetime: 07/08/2021 07:43 VITAL SIGNS NBP Sys/Rashmi/Mean (mmHg): 127 : 75 : 86 Pulse: 64 Datetime: 07/07/2021 16:35 SpO2 (%): 99 Datetime: 07/07/2021 10:47 Temperature (C): 36.9 Datetime: 07/07/2021 09:32 Stage of : Recovery Datetime: 07/07/2021 09:31 LaborFlag: Labor Datetime: 07/07/2021 09:25 I/O Interventions: Maldonado Discontinued Datetime: 07/07/2021 09:18 STAGE 2 Pushing: Coached on Pushing Pushing Position: Pushing with Contractions; Pushing Lithotomy Pushing Progress: Descent with Pushing Datetime: 07/07/2021 09:15 UTERINE ACTIVITY Monitor Mode: External Frequency (min): 1.5-2 Quality: Moderate Duration (sec): 40-80 Pattern: Normal: <= 5 Contractions in 10 Minutes Resting Tone (Palpate): Relaxed ASSESSMENT A Monitor Mode: Telemetry FHR Baseline Rate : 120 Variability: Moderate 6-25 bpm Accelerations: 15X15 Decelerations: Variable Category: Category II Datetime: 07/07/2021 09:13 COMMUNICATION Communication: Provider at Bedside Provider Notified (Name): DrSandra Lee Communication Comments: Provider at bedside for delivery Datetime: 07/07/2021 09:10 VAGINAL EXAM Dilatation (cm): 10.0 Effacement (%): 100 Station: 2 Exam by: Jackson, Omaira Datetime: 07/07/2021 08:20 Patient Position/Activity: Left Tilt 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 and adjusting monitors Comments: At bedside re-positioning pt. and adjusting monitors Datetime: 07/07/2021 07:20 MEDICATIONS Antibiotics: Ampicillin IV 1 Gm Datetime: 07/07/2021 07:00 Monitor Interventions for UA: Macopin Adjusted FHR Baseline Changes: No Baseline Change Datetime: 07/07/2021 06:15 PATIENT CARE IV/Blood Work: New IV Bag Hung Datetime: 07/07/2021 06:02 Anesthesia Level Check: T6- Xyphoid Datetime: 07/07/2021 06:01 Respirations: 18 Temperature Route: Oral Datetime: 07/07/2021 05:02 Pain Assessment Comments: Patient now sleeping through contractions Datetime: 07/07/2021 05:00 PAIN Pain Scale: 0 Pain Presence: None/Denies Pain Type: N/A Pain Relief Measures: Epidural Given Datetime: 07/07/2021 04:41 Provider Reviewed Strip: Yes Strip Reviewed by: Dr Lee Notification Reason: Status Update; Status; Labor Status; Uterine Activity Datetime: 07/07/2021 04:36 Antiemetics/Antacids: Zofran (mg) @ 4mg SIVP Datetime: 07/07/2021 04:30 MATERNAL ASSESSMENT Level of Consciousness: Alert DTR's/Clonus: DTRs 2+; No Clonus Headache: Denies Breath Sounds, Left: Clear and Equal Breath Sounds, Right: Clear and Equal Nausea/Vomiting: Present RUQ Epigastric Pain: Denies Datetime: 07/07/2021 04:22 Membrane Status: Ruptured Membranes Ruptured Date/Time: 07/07/2021 02:25 Membranes Rupture Method: Spontaneous Amniotic Fluid Color: Clear Vaginal Bleeding: Normal Show Datetime: 07/07/2021 04:21 Actions for Decelerations: Side to Side; IV Bolus; Sterile Vaginal Exam; Blood Pressure; Prov ider Notified Datetime: 07/07/2021 04:10 Pain Location: Right Groin Pain Goal: 5 Pain Coping: Sleeping Datetime: 07/07/2021 03:45 Epidural Procedure: Test Dose Datetime: 07/07/2021 03:40 TEACHING Pain Management: Epidural; Pain Scale/Goals; Comfort Measures Datetime: 07/07/2021 03:32 PROCEDURE TIME OUT Procedure Type: 0332 Procedure Verify: Correct Patient Identity; Correct Side and Site are Marked; Accurate Procedure Co nsent Form; Agreement on Procedure to be Done; Correct Patient Position; Addressed Need to Administer Antibiotics or Fluids for Irrigation; Safety Precautions Based on Patient History or Medication Use ANESTHESIA Anesthesia Plans: Epidural Epidural Positioning: Sitting
== END 2021-07-08 12:55 | disposition home or self-care (01) | DRG 806 ==
LOC: WFO 02:42 → FBP 02:44 → WFO 03:09 → FBP 03:10
PROVIDERS: ADMIT Obstetrics & Gynecology; ATTEND Obstetrics & Gynecology
PROC: 10E0XZZ Delivery of Products of Conception, External Approach (ICD-10-PCS; principal; 2021-07-07)
DX: O70.0 First degree perineal laceration during delivery (principal); O98.52 Other viral diseases complicating childbirth; Z37.0 Single live birth; O99.284 Endocrine, nutritional and metabolic diseases complicating childbirth; E55.9 Vitamin D deficiency, unspecified; O99.824 Streptococcus B carrier state complicating childbirth; A60.04 Herpesviral vulvovaginitis; Z3A.38 38 weeks gestation of pregnancy; Z87.891 Personal history of nicotine dependence
CPT/HCPCS: 84112; 85025; 86850; 86900; 86901; 99406; A9270; J7120; 99215

== ENCOUNTER 2022-05-30 19:55 | Emergency (ER) | payer MEDICAID ==
[2022-05-30 20:35] LABS: BILIRUBIN,URINE NEGATIVE (NEGATIVE); GLUCOSE, URINE (UA) NEGATIVE (NEGATIVE); KETONES,URINE (UA) NEGATIVE (NEGATIVE); LEUKOCYTE ESTERASE, URINE TRACE (NEGATIVE); NITRITE,URINE NEGATIVE (NEGATIVE); OCCULT BLOOD,URINE NEGATIVE (NEGATIVE); PROTEIN,URINE NEGATIVE (NEGATIVE); UROBILINOGEN,URINE 0.2 (NORMAL) E.U./dL (NORMAL)
[2022-05-30 20:38] LABS: CLARITY,URINE HAZY (CLEAR); HCG UR QUAL NEGATIVE
[2022-05-30 21:09] LABS: BACTERIA,URINE Moderate /HPF (None Seen); RBC,URINE 0-5 /HPF (0-5); SQUAMOUS EPITHELIAL CELL,UR MOD Squamous (<= Few)
--- NOTE | 2022-05-30 22:43 | ED Physician Documentation ---
PD HPI FEMALE - Stated complaint Stated Complaint: FEMALE - Chief complaint Chief Complaint: UTI - History obtained from History obtained from: Patient - History of Present Illness Timing - onset: How many days ago (2-3) Timing - duration: Days Associated symptoms: Dysuria, Urinary frequency. 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 : None HEENT: None Psych: None Musculoskeletal: None Derm: None - Past Surgical History Past Surgical History: Yes General: Appendectomy Ortho: Other HEENT: Tonsil/Adenoidectomy - Present Medications Home Medications: Ambulatory Orders Medication Instructions Recorded Confirmed Pnv No.95/Ferrous Fum/Folic AC 1 tab ORAL DAILY 10/02/20 01/28/21 [ Tablet] metroNIDAZOLE [Flagyl] 500 mg PO BID 01/28/21 01/28/21 Acyclovir 400 mg PO 5XD #35 tablet 02/09/21 Fluconazole [Diflucan] 150 mg PO ONCE PRN #1 tablet 02/13/21 Acetaminophen [Acetaminophen Extra 1,000 mg PO Q8H PRN #60 tablet 07/08/21 Strength] Docusate Sodium [Colace Clear] 50 mg PO BID #60 cap 07/08/21 Ibuprofen [Motrin] 600 mg PO Q6H PRN #30 tab 07/08/21 Nitrofurantoin [Macrobid] 100 mg PO BID #9 cap 05/30/22 - Allergies Allergies/Adverse Reactions: Allergies Allergy/AdvReac Type Severity Reaction Status Date / Time hydrocodone bitartrate * Allergy Mild Emesis Verified 05/30/22 20:07 [From Vicodin] - Social History Does the pt smoke?: No Smoking Status: Light tobacco smoker Does the pt drink ETOH?: No Does the pt have substance abuse?: No - Immunizations Immunizations are current?: Yes - POLST Patient has POLST: No PD ED PE NORMAL - Vitals Vital signs reviewed: Yes - General General: Alert and oriented X 3, No acute distress, Well developed/nourished - Abdomen Abdomen: Soft, Non tender - Back Back: No CVA TTP Results - Vitals Vitals: Vital Signs - 24 hr 11/09/22 23:18 Temperature 36.6 C Heart Rate 65 Respiratory 16 Rate Blood Pressure 124/81 H O2 Saturation 100 Oxygen O2 Source Room air - Labs Labs: Laboratory Tests 05/30/22 20:12 Urine Color YELLOW Urine Clarity HAZY Urine pH 6.0 Ur Specific [place] >=1.030 H Urine Protein NEGATIVE Urine Glucose (UA) NEGATIVE Urine Ketones NEGATIVE Urine Occult Blood NEGATIVE Urine Nitrite NEGATIVE Urine Bilirubin NEGATIVE Urine Urobilinogen 0.2 (NORMAL) Ur Leukocyte Esterase TRACE H Urine RBC 0-5 Urine WBC 6-10 H Ur Squamous Epith Cells MOD Squamous H Urine Bacteria Moderate H Ur Microscopic Review INDICATED Urine Culture Comments NOT INDICATED Urine HCG, Qual NEGATIVE PD MEDICAL DECISION MAKING - ED course Complexity details: reviewed results, considered differential, d/w patient Departure - Departure Disposition: Home, Self Care Clinical Impression: Urinary tract infection Qualifiers: Urinary tract infection type: acute cystitis Hematuria presence: without hematuria Qualified Code(s): N30.00 - Acute cystitis without hematuria Condition: Good Instructions: ED UTI Cystitis Female Follow-Up: Sixto Reeves MD [Primary Care Provider] - Prescriptions: Nitrofurantoin [Macrobid] 100 mg PO BID #9 cap Comments: An antibiotic (macrobid/nitrofurantoin) has been electronically submitted to [facility] in [place] Discharge Date/Time: 05/30/22 23:18
[2022-05-30] MEDS ORDERED: NITROFURANTOIN MACRO 100 MG CAPSULE PO STA (23:04)
[2022-05-30 23:19] VITALS: BP 124/81
== END 2022-05-30 23:18 | disposition home or self-care (01) ==
LOC: ED 19:55
DX: N30.00 Acute cystitis without hematuria (principal); F17.200 Nicotine dependence, unspecified, uncomplicated
CPT/HCPCS: 81001; 81025; 99282; 99283; A9270; 81003; 87086

== ENCOUNTER 2023-01-26 00:29 | Emergency (ER) | payer MEDICAID ==
[2023-01-26 00:46] VITALS: BP 153/105
--- NOTE | 2023-01-26 01:51 | ED Physician Documentation ---
History of Present Illness - Stated complaint Stated Complaint: L LOW ABD PX - Chief complaint Chief Complaint: Abd Pain - Additonal information Additional information: Patient 27-year-old female presenting to the emergency department with a left inner thigh pain. Reports pain in this area ongoing x5 to 6 days. Began shortly after vigorous intercourse with her . At that time she states that she felt a "pop". Has had pain associated with movement or physical activity since. No abdominal or pelvic pain. No vaginal discharge or vaginal bleeding. No concern for sexually transmitted infection. 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 : None HEENT: None Psych: None Musculoskeletal: None Derm: None - Past Surgical History Past Surgical History: Yes General: Appendectomy Ortho: Other HEENT: Tonsil/Adenoidectomy - Present Medications Home Medications: Ambulatory Orders Medication Instructions Recorded Confirmed Pnv No.95/Ferrous Fum/Folic AC 1 tab ORAL DAILY 10/02/20 01/28/21 [ Tablet] metroNIDAZOLE [Flagyl] 500 mg PO BID 01/28/21 01/28/21 Acyclovir 400 mg PO 5XD #35 tablet 02/09/21 Fluconazole [Diflucan] 150 mg PO ONCE PRN #1 tablet 02/13/21 Acetaminophen [Acetaminophen Extra 1,000 mg PO Q8H PRN #60 tablet 07/08/21 Strength] Docusate Sodium [Colace Clear] 50 mg PO BID #60 cap 07/08/21 Ibuprofen [Motrin] 600 mg PO Q6H PRN #30 tab 07/08/21 Nitrofurantoin [Macrobid] 100 mg PO BID #9 cap 05/30/22 - Allergies Allergies/Adverse Reactions: Allergies Allergy/AdvReac Type Severity Reaction Status Date / Time hydrocodone bitartrate * Allergy Mild Emesis Verified 05/30/22 20:07 [From Vicodin] - Social History Does the pt smoke?: No Smoking Status: Light tobacco smoker Does the pt drink ETOH?: No Does the pt have substance abuse?: No - Immunizations Immunizations are current?: Yes - POLST Patient has POLST: No PD ED PE NORMAL - General General: Alert and oriented X 3 - HEENT HEENT: Atraumatic - Neck Neck: Supple, no meningeal sign - Cardiac Cardiac: RRR - Respiratory Respiratory: No respiratory distress - Abdomen Abdomen: Normal bowel sounds - Female Female : Deferred - Derm Derm: Normal color - Extremities Extremities: Other (Pain with palpation to the inner aspect of the left thigh. There are no palpable bulges or masses.) Results - Vitals Vitals: Vital Signs - 24 hr 01/26/23 00:39 Temperature 36.4 C L Heart Rate 61 Respiratory 16 Rate Blood Pressure 153/105 H O2 Saturation 100 Oxygen O2 Source Room air PD Medical Decision Making - ED course Complexity details: considered differential, d/w patient ED course: Patient 27-year-old female presenting to the emergency department with left thigh pain. Afebrile, hemodynamically stable. Abdominal exam benign. Tenderness to palpation along the course of the upper aspect of the left sartorius muscle. No bulges or masses that would be of concern for femoral hernia. Patient offered evaluation including lab work and imaging which was declined. Offered medication for pain control. Reported that she felt comfortable going home on Motrin and Tylenol. Encourage careful follow-up with her primary care doctor or return to the emergency department as needed. Departure - Departure Disposition: 01 Home, Self Care Clinical Impression: Muscle strain, lower leg Qualifiers: Encounter type: initial encounter Laterality: left Qualified Code(s): S86.912A - Strain of unspecified muscle(s) and tendon(s) at lower leg level, left leg, initial encounter Comments: Thank you for allowing us to care for you today would be general. You for to be suffering from some muscular strain to the left thigh. I recommend drinking plenty of fluids and gentle stretching. Motrin and Tylenol can be used at home for pain control. Ice packs might also be helpful to decrease swelling and thereby decrease pain. It is important that if you notice any large bulges or masses in this area that you return to the emergency department. Please follow-up with your primary care doctor. Your symptoms should be improving slowly but steadily over the course of the next 1 to 2 weeks, If anytime you develop new or worsening symptoms please not hesitate to return.
== END 2023-01-26 02:02 | disposition home or self-care (01) ==
LOC: ED 00:29
DX: S86.912A Strain of unspecified muscle(s) and tendon(s) at lower leg level, left leg, initial encounter (principal); X58.XXXA Exposure to other specified factors, initial encounter; Y93.89 Activity, other specified; F17.200 Nicotine dependence, unspecified, uncomplicated
CPT/HCPCS: 80053; 83690; 85025; 99283

== ENCOUNTER 2023-11-12 19:06 | Emergency (ER) | payer MEDICAID ==
[2023-11-12 19:27] LABS: BILIRUBIN,URINE NEGATIVE (NEGATIVE); GLUCOSE, URINE (UA) NEGATIVE (NEGATIVE); KETONES,URINE (UA) TRACE mg/dL (NEGATIVE); LEUKOCYTE ESTERASE, URINE NEGATIVE (NEGATIVE); NITRITE,URINE NEGATIVE (NEGATIVE); OCCULT BLOOD,URINE TRACE-INTA (NEGATIVE); PROTEIN,URINE NEGATIVE (NEGATIVE); UROBILINOGEN,URINE 0.2 (NORMAL) E.U./dL (NORMAL)
--- NOTE | 2023-11-12 19:28 | ED Physician Documentation ---
PD HPI ABD PAIN - Stated complaint Stated Complaint: R SIDE PX/NAUSEA - Chief complaint Chief Complaint: Abd Pain - History obtained from History obtained from: Patient - Additional information Additional information: 27-year-old woman with remote appendectomy presents with 3 days of worsening right flank pain with urinary frequency and nausea. She feels dehydrated. She has had shaking chills but no fevers. 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[employer] PROGRAM: Ovarian cysts : None HEENT: None Psych: None Musculoskeletal: None Derm: None - Past Surgical History Past Surgical History: Yes General: Appendectomy Ortho: Other HEENT: Tonsil/Adenoidectomy - Present Medications Home Medications: Ambulatory Orders Medication Instructions Recorded Confirmed No Known Home Medications 11/12/23 11/12/23 - Allergies Allergies/Adverse Reactions: Allergies Allergy/AdvReac Type Severity Reaction Status Date / Time hydrocodone bitartrate * Allergy Mild Emesis Verified 11/12/23 19:13 [From Vicodin] - Social History Does the pt smoke?: No Smoking Status: Never smoker Does the pt drink ETOH?: No Does the pt have substance abuse?: No - Immunizations Immunizations are current?: Yes - POLST Patient has POLST: No PD ED PE NORMAL - Vitals Vital signs reviewed: Yes - General General: Alert and oriented X 3, No acute distress - Abdomen Abdomen: Normal bowel sounds, Soft, Non tender, Other (Tender over the right CVA) - Derm Derm: No rash - Neuro Neuro: Alert and oriented X 3 Results - Vitals Vitals: Vital Signs - 24 hr 11/12/23 11/12/23 11/12/23 19:08 20:11 21:56 Temperature 36.5 C Heart Rate 84 96 72 Respiratory 16 16 16 Rate Blood Pressure 130/81 H 119/76 123/78 O2 Saturation 97 96 98 Oxygen O2 Source Room air - Labs Labs: Laboratory Tests 11/12/23 11/12/23 11/12/23 09:37 09:37 19:15 WBC 14.2 H RBC 4.95 Hgb 14.5 Hct 43.5 MCV 87.9 MCH 29.3 MCHC 33.3 RDW 12.2 Plt Count 308 MPV 9.3 Neut # (Auto) Not Reportable Lymph # (Auto) Not Reportable [place] # (Auto) Not Reportable Eos # (Auto) Not Reportable Baso # (Auto) Not Reportable Absolute Nucleated RBC Not Reportable Total Counted 100 Band Neuts % (Manual) 1 Reactive Lymphs % (Man) 13 Abnorm Lymph % (Manual) 0 Nucleated RBC % Not Reportable Neutrophils # (Manual) 7.7 H Lymphocytes # (Manual) 5.4 H Monocytes # (Manual) 0.7 Eosinophils # (Manual) 0.3 Basophils # (Manual) 0.1 Differential Comment MANUAL DIFFERENTIAL Platelet Estimate NORMAL (130-450,000) Platelet Morphology NORMAL APPEARANCE RBC Morph Micro Appear NORMAL APPEARANCE Sodium 136 Potassium 3.8 Chloride 104 Carbon Dioxide 24 Anion Gap 8.0 BUN 14 Creatinine 0.8 Estimated GFR (MDRD) 87 L Glucose 103 Calcium 10.2 Total Bilirubin 0.3 AST 12 ALT 12 Alkaline Phosphatase 68 Total Protein 7.3 Albumin 4.6 Globulin 2.7 Albumin/Globulin Ratio 1.7 Lipase 29 Urine Color YELLOW Urine Clarity HAZY Urine pH 6.0 Ur Specific [place] >=1.030 H Urine Protein NEGATIVE Urine Glucose (UA) NEGATIVE Urine Ketones TRACE Urine Occult Blood TRACE-INTA Urine Nitrite NEGATIVE Urine Bilirubin NEGATIVE Urine Urobilinogen 0.2 (NORMAL) Ur Leukocyte Esterase NEGATIVE Urine RBC 0-5 Urine WBC 4-5 Ur Squamous Epith Cells MOD Squamous H Urine Bacteria Few Ur Microscopic Review INDICATED Urine Culture Comments NOT INDICATED Urine HCG, Qual NEGATIVE PD Medical Decision Making - ED course ED course: She presents with R flank pain and given sx most c/w pyelo, but UA nl/neg, UPT also nl / neg. So bloodwork done and noted leukocytosis, but revewied records, NEVER had nl WBC always high. So doubt acute. CT without abn. Pain does increase with movemvent so likely benign MSK. No shingles rash. No soa or tachy to worry atypical PE> Better p toradol Departure - Departure Disposition: 01 Home, Self Care Clinical Impression: Flank pain Leukocytosis Qualifiers: Leukocytosis type: unspecified Qualified Code(s): D72.829 - Elevated white blood cell count, unspecified Condition: Good Record reviewed to determine appropriate education?: Yes Instructions: ED Neck Back Pain General Comments: As discussed, your urinalysis does not show any signs of infection, and the CT was normal. You do have the elevation in white blood cell count, but it looks like this goes back as far as I can see in your medical records and thus I do no t think it is an acute process nor is it related to your current pain. The pain, by process of elimination is probably just kind of regular old muscular back pain. He can take ibuprofen and/or Tylenol for these symptoms. Do follow- up with your primary care physician with a copy of the old labs, they may want to do further evaluation and treatment to find out why you always have an elevated white blood cell count, conversely they may refer you to hematology for evaluation of this. Given that it has been going on for 10+ years, I do not think there is a lot of urgency to having that workup done, nor do I believe it is going to be acutely dangerous. Return for new or worsening symptoms. Forms: PCP List Discharge Date/Time: 11/12/23 21:57
[2023-11-12 19:29] LABS: CLARITY,URINE HAZY (CLEAR); HCG UR QUAL NEGATIVE
[2023-11-12] MEDS: SODIUM CHLORIDE 0.9% 1,000 ML IV STA (19:35)
[2023-11-12] MEDS: ONDANSETRON 4 MG/2 ML VIAL IVP STA (19:37)
[2023-11-12 19:44] LABS: BASOPHILS % (AUTO) 0.5 %; EOSINOPHILS % (AUTO) 1.2 %; HCT - HEMATOCRIT 43.5 % (37.0-47.0); HGB - HEMOGLOBIN 14.5 g/dL (12.0-16.0); MEAN CORPUSCULAR HEMOGLOBIN 29.3 pg (27.0-31.0); MEAN CORPUSCULAR HGB CONC 33.3 g/dL (32.0-36.0); MEAN CORPUSCULAR VOLUME 87.9 fL (81.0-99.0); MEAN PLATELET VOLUME 9.3 fL (7.9-10.8); MONOCYTES % (AUTO) 5.8 %; NEUTROPHILS % (AUTO) 53.1 %; PLT - PLATELET COUNT 308 10^3/uL (130-450); RED BLOOD COUNT 4.95 10^6/uL (4.20-5.40); RED CELL DISTRIBUTION WIDTH 12.2 % (12.0-15.0); WHITE BLOOD COUNT 14.2 x10^3/uL (4.8-10.8)
[2023-11-12 19:46] LABS: BACTERIA,URINE Few /HPF (None Seen); RBC,URINE 0-5 /HPF (0-5); SQUAMOUS EPITHELIAL CELL,UR MOD Squamous (<= Few)
[2023-11-12 19:46] LABS: ABNORMAL LYMPHS % (MANUAL) 0 %
[2023-11-12 19:59] LABS: ALBUMIN 4.6 g/dL (3.2-5.5); ALBUMIN/GLOBULIN RATIO 1.7 (1.0-2.2); BILIRUBIN,TOTAL 0.3 mg/dL (0.2-1.0); CALCIUM 10.2 mg/dL (8.5-10.3); CREATININE 0.8 mg/dL (0.6-1.3); POTASSIUM 3.8 mmol/L (3.5-4.5); TOTAL PROTEIN 7.3 g/dL (6.4-8.9)
[2023-11-12 20:15] LABS: BAND NEUTROPHILS % (MANUAL) 1 %; BASOPHILS # (MANUAL) 0.1 10^3/uL (0-0.1); BASOPHILS % (MANUAL) 1 %; EOSINOPHILS # (MANUAL) 0.3 10^3/uL (0-0.7); LYMPHOCYTES # (MANUAL) 5.4 10^3/uL (1.5-3.5); LYMPHOCYTES % (MANUAL) 25 %; MONOCYTES # (MANUAL) 0.7 10^3/uL (0.0-1.0); NEUTROPHILS # (MANUAL) 7.7 10^3/uL (1.5-6.6); PLATELET ESTIMATE, MANUAL NORMAL (130-450,000) (NORMAL); PLATELET MORPHOLOGY NORMAL APPEARANCE (NORMAL); RBC MORPHOLOGY (MULTIPLE) NORMAL APPEARANCE (NORMAL); REACTIVE LYMPHS % (MANUAL) 13 %
[2023-11-12 20:16] LABS: DIFFERENTIAL COMMENT MANUAL DIFFERENTIAL
[2023-11-12] MEDS ORDERED: iohexoL-300 100 ML VIAL ONE (20:17)
[2023-11-12] MEDS: KETOROLAC 15 MG/ML VIAL IVP STA (20:32)
[2023-11-12] MEDS: iohexoL-300 100 ML VIAL IVP ONE (20:39)
--- NOTE | 2023-11-12 21:29 | CT Report ---
PROCEDURE: Abdomen/Pelvis W INDICATIONS: R flank pain, IV only CONTRAST: 100ml [id number] TECHNIQUE: After the administration of intravenous contrast, a CT scan of the abdomen and pelvis was performed. Images were recorded and evaluated at appropriate window settings. Reformats: coronal and sagittal. F or radiation dose reduction, the following was used: automated exposure control, adjustment of mA and /or kV according to patient size. COMPARISON: Remote CT of the abdomen dated 05/28/2011 is not available for review.. FINDINGS: Image quality: Diagnostic. Lower chest: Unremarkable. Liver: No solid mass. Gallbladder and biliary tree: No radiopaque stones or wall thickening. No biliary dilation. Spleen: No splenomegaly. Pancreas: No pancreatic ductal dilation. Adrenals: No adrenal nodule. Kidneys and ureters: No hydronephrosis. No renal cystic lesion which requires follow up. No solid mas s. Stomach, bowel and peritoneum: No bowel distension. No pathologic free fluid. Multiple fluid-filled l oops of small bowel without distention or wall thickening. Appendix is not definitively visualized bu t no secondary findings for acute appendicitis. Density in the right lower quadrant may represent pos tsurgical changes of prior appendectomy. Recommend correlation with surgical history. Lymph nodes: No central or retroperitoneal adenopathy. Vessels: No infrarenal aortic aneurysm. PELVIS Reproductive organs: Unremarkable. IUD visualized within the endometrial cavity. Bladder: No abnormal wall thickening, accounting for underdistention. Pelvic lymph nodes: No pelvic adenopathy by size criteria. Bones: No aggressive osseous abnormality. Other: No significant ventral or inguinal hernia. IMPRESSION: CT abdomen and pelvis without acute abnormalities. The appendix is not visualized but no secondary fi ndings for acute appendicitis. Suggestion of possible surgical changes of remote appendectomy. Recomm end correlation with past medical history. Reviewed by: Isaac Aquino MD on 11/12/2023 9:27 PM PDT Approved by: Isaac Aquino MD on 11/12/2023 9:27 PM PDT Station ID: [id number]
[2023-11-12 22:03] VITALS: BP 123/78; O2SAT 98
== END 2023-11-12 21:57 | disposition home or self-care (01) ==
LOC: ED 19:06
DX: R10.9 Unspecified abdominal pain (principal); D72.829 Elevated white blood cell count, unspecified
CPT/HCPCS: 36415; 74177; 80053; 81001; 81025; 83690; 85025; 96361; 96374; 96375; 99284; Q9967; 81003; 87086